=== PATIENT | male | born 1945 | race Caucasian/White ===

== ENCOUNTER 2018-02-03 15:56 | Emergency (ER) | payer BLACK LUNG, MEDICARE ==
--- NOTE | 2018-02-03 16:22 | ERPHSYRPT ---
- History of Present Illness Time Seen by Provider: 02/03/18 16:10 Historian: patient Exam Limitations: no limitations Patient Subjective Stated Complaint: Chest Soreness x1.5 weeks. Triage Nursing Assessment: Pt presents to the ED with complaints of chest soreness x1.5 weeks. Pt states pain is worse with ambulation. Pt states pain is approximately 5/10. Pt states pain has been intermittent. Pt states shortness of breath with pain. No distress noted at this time, skin PWD. Sent per Dr. Driscoll. Physician History: 72 y/o male with history of CVA on Eliquis and DM sent from Dr Driscoll's office for chest pain that started 1.5 weeks ago. Pt reports having intermittent chest pain, steady, as high as 6/10, and pt has not taken any pain meds. Pt also complains of shortness of breath while having the chest pain. Pt has no significant cardiac history but has black lung. Pt has never had a stress test and does not take ASA on a daily basis. Timing/Duration: day(s) Activities at Onset: none Quality: aching Location: central Chest Pain Radiation: no radiation Severity of Pain-Max: moderate Severity of Pain-Current: moderate Modifying Factors: Improves With: nothing Associated Symptoms: shortness of breath Prior Chest Pain/Cardiac Workup: no prior chest pain Nitro Today/Relief: no nitro taken today Aspirin Treatment Today: no aspirin today Allergies/Adverse Reactions: No Known Drug Allergies Allergy (Unverified 06/18/16 14:05) Home Medications: Insulin NPH/Reg 70/30 [Novolin 70/30] 15 unit SQ BID 12/11/15 [History] Apixaban [Eliquis 5 mg Tablet] 5 mg PO BID 02/03/18 [History] Hx Tetanus, Diphtheria Vaccination/Date Given: No Hx Influenza Vaccination/Date Given: Yes Hx Pneumococcal Vaccination/Date Given: Yes Immunizations Up to Date: Yes - Review of Systems Constitutional: No Fever, No Chills Eyes: No Symptoms Ears, Nose, & Throat: No Symptoms Respiratory: Dyspnea, No Cough Cardiac: Chest Pain, No Edema, No Syncope Abdominal/Gastrointestinal: No Abdominal Pain, No Nausea, No Vomiting, No Diarrhea Genitourinary Symptoms: No Dysuria Musculoskeletal: No Back Pain, No Neck Pain Skin: No Rash Neurological: No Dizziness, No Focal Weakness, No Sensory Changes Psychological: No Symptoms Endocrine: No Symptoms All Other Systems: Reviewed and Negative - Past Medical History Pertinent Past Medical History: Yes Neurological History: TIA Cardiac History: No Pertinent History Respiratory History: No Pertinent History Endocrine Medical History: Diabetes Type II Musculoskeletal History: No Pertinent History GI Medical History: No Pertinent History History: No Pertinent History Psycho-Social History: No Pertinent History Male Reproductive Disorders: No Pertinent History Other Medical History: BLACK LUNG; HX TIAS POSSIBLY - Past Surgical History Past Surgical History: Yes Cardiac: No Pertinent History Respiratory: Other Gastrointestinal: Cholecystectomy Genitourinary: No Pertinent History, Other Musculoskeletal: No Pertinent History Male Surgical History: No Pertinent History Other Surgical History: kidney stones - Social History Smoking Status: Former smoker Exposure to second hand smoke: No Alcohol Use: None Drug Use: none Patient Lives Alone: No Significant Family History: heart disease (mother) - Nursing Vital Signs Nursing Vital Signs: Initial Vital Signs Temperature 98.5 F 02/03/18 16:05 Pulse Rate 90 02/03/18 16:05 Respiratory Rate 16 02/03/18 16:05 Blood Pressure 170/93 02/03/18 16:05 O2 Sat by Pulse Oximetry 98 02/03/18 16:05 Pain Scale Pain Intensity 0 - Physical Exam General Appearance: no apparent distress, alert Eye Exam: PERRL/EOMI, eyes nml inspection Ears, Nose, Throat Exam: normal ENT inspection, moist mucous membranes Neck Exam: normal inspection, non-tender, supple, full range of motion Respiratory Exam: normal breath sounds, lungs clear, No respiratory distress Cardiovascular Exam: regular rate/rhythm, normal heart sounds Gastrointestinal/Abdomen Exam: soft, No tenderness, No mass Back Exam: normal inspection, No CVA tenderness, No vertebral tenderness Extremity Exam: normal inspection, normal range of motion Neurologic Exam: alert, oriented x 3, cooperative, normal mood/affect, sensation nml, No motor deficits Skin Exam: normal color, warm, dry SpO2: 98 Oxygen Delivery: Room Air - Course Nursing assessment & vital signs reviewed: Yes EKG Interpreted by Me: RATE, NORMAL AXIS, NORMAL INTERVALS, NORMAL QRS, NORMAL ST-T Ordered Tests: Active Orders 24 hr Category Date Time Status Flash Drier Operator STAT Care 02/03/18 16:23 Active EKG-ER Only STAT Care 02/03/18 16:22 Active IV Insertion STAT Care 02/03/18 16:22 Active CHEST 2 VIEWS (PA AND LAT) Stat Exams 02/03/18 16:23 Completed CBC W DIFF Stat Lab 02/03/18 16:20 Completed CK-Creatinine Phosphokinase Stat Lab 02/03/18 16:20 Completed CMP Stat Lab 02/03/18 16:20 Completed D-DIMER QUANTITATION Stat Lab 02/03/18 16:20 Completed NT PRO BNP Stat Lab 02/03/18 16:20 Completed PROTIME WITH INR Stat Lab 02/03/18 16:20 Completed PTT Stat Lab 02/03/18 16:20 Completed TROPONIN Q3H Lab 02/03/18 16:20 Completed TROPONIN Q3H Lab 02/03/18 19:30 Ordered TROPONIN Q3H Lab 02/03/18 22:30 Ordered TROPONIN Q3H Lab 02/04/18 01:30 Ordered TROPONIN Q3H Lab 02/04/18 04:30 Ordered Medication Summary Discontinued Medications Generic Name Dose Route Start Last Admin Trade Name Freq PRN Reason Stop Dose Admin Aspirin 325 mg 02/03/18 17:30 Ecotrin 325 Mg PO 02/03/18 17:31 ONCE ONE Lab/Rad Data: Laboratory Result Diagrams 02/03/18 16:20 02/03/18 16:20 Laboratory Results 02/03/18 02/03/18 02/03/18 Range/Units 16:20 16:20 16:20 WBC (4.0-10.5) K/mm3 RBC (4.1-5.6) M/mm3 Hgb (12.5-18.0) gm/dl Hct (42-50) % MCV (78-100) fl MCH (26-32) pg MCHC (32-36) g/dl RDW (11.5-14.0) % Plt Count (150-450) K/mm3 MPV (6-9.5) fl Gran % (36.0-66.0) % Eos # (Auto) (0-0.5) Absolute Lymphs (auto) (1.0-4.6) Absolute Monos (auto) (0.0-1.3) Lymphocytes % (24.0-44.0) % Monocytes % (0.0-12.0) % Eosinophils % (0.00-5.0) % Basophils % (0.0-0.4) % Absolute Granulocytes (1.4-6.9) Basophils # (0-0.4) PT 16.1 H (8.83-12.87) SECONDS INR 1.38 (0.8-3.0) APTT 42.4 H (24.1-36.1) SECONDS D-Dimer 265 (215-500) ng/mL Sodium 142 (137-145) mmol/L Potassium 4.1 (3.5-5.1) mmol/L Chloride 106 (98-107) mmol/L Carbon Dioxide 25 (22-30) mmol/L Anion Gap 15.4 H (5-15) MEQ/L BUN 18 (9-20) mg/dL Creatinine 0.95 (0.66-1.25) mg/dL Estimated GFR > 60.0 ML/MIN Glucose 192 H (74-106) mg/dL Calcium 9.5 (8.4-10.2) mg/dL Total Bilirubin 0.90 (0.2-1.3) mg/dL AST 55 (17-59) U/L ALT 32 (0-50) U/L Alkaline Phosphatase 71 (38-126) U/L Creatine Kinase 311 H (55-170) U/L Troponin I 2.790 H* (0.000-0.034) ng/mL NT-Pro-B Natriuret Pep 2050 H (0-900) pg/mL Serum Total Protein 7.8 (6.3-8.2) g/dL Albumin 4.3 (3.5-5.0) g/dL 02/03/18 Range/Units 16:20 WBC 8.4 (4.0-10.5) K/mm3 RBC 5.15 (4.1-5.6) M/mm3 Hgb 15.9 (12.5-18.0) gm/dl Hct 47.6 (42-50) % MCV 92.4 (78-100) fl MCH 30.9 (26-32) pg MCHC 33.4 (32-36) g/dl RDW 13.2 (11.5-14.0) % Plt Count 221 (150-450) K/mm3 MPV 12.0 H (6-9.5) fl Gran % 68.4 H (36.0-66.0) % Eos # (Auto) 0.28 (0-0.5) Absolute Lymphs (auto) 1.55 (1.0-4.6) Absolute Monos (auto) 0.82 (0.0-1.3) Lymphocytes % 18.4 L (24.0-44.0) % Monocytes % 9.7 (0.0-12.0) % Eosinophils % 3.3 (0.00-5.0) % Basophils % 0.2 (0.0-0.4) % Absolute Granulocytes 5.75 (1.4-6.9) Basophils # 0.02 (0-0.4) PT (8.83-12.87) SECONDS INR (0.8-3.0) APTT (24.1-36.1) SECONDS D-Dimer (215-500) ng/mL Sodium (137-145) mmol/L Potassium (3.5-5.1) mmol/L Chloride (98-107) mmol/L Carbon Dioxide (22-30) mmol/L Anion Gap (5-15) MEQ/L BUN (9-20) mg/dL Creatinine (0.66-1.25) mg/dL Estimated GFR ML/MIN Glucose (74-106) mg/dL Calcium (8.4-10.2) mg/dL Total Bilirubin (0.2-1.3) mg/dL AST (17-59) U/L ALT (0-50) U/L Alkaline Phosphatase (38-126) U/L Creatine Kinase (55-170) U/L Troponin I (0.000-0.034) ng/mL NT-Pro-B Natriuret Pep (0-900) pg/mL Serum Total Protein (6.3-8.2) g/dL Albumin (3.5-5.0) g/dL - Progress Progress: improved Progress Note: 02/03/18 17:12 The troponin is 2.79 with no significant EKG changes. The CXR does not show any acute changes. The rest of the labs are unremarkable. The patient admits to taking eliquis today. I will consult cardiology at [facility] for further management for NSTEMI. 02/03/18 17:24 02/03/18 17:[address] Cody, cardiology and he recommended to start the patient on ASA and Plavix but no heparin. He said that likely the patient will have a cath tomorrow. Pt has been accepted by ER doctor, Dr Boston at [facility]. - Departure Time of Disposition: 17:33 Departure Disposition: Transfer Clinical Impression: NSTEMI (non-ST elevated myocardial infarction) Condition: Fair Critical Care Time: Yes Critical Care Time(excluding separately billable procedures): 30-74 minutes Referrals: AME DRISCOLL [Primary Care Provider] -
[2018-02-03 16:30] LABS: BASOPHIL % 0.2 % (0.0-0.4); Basophil (Absolute #) 0.02 (0-0.4); Eosinophil % 3.3 % (0.00-5.0); Eosinophil (Absolute #) 0.28 (0-0.5); Granulocyte Absolute (ANC) 5.75 (1.4-6.9); Granulocytes % 68.4 % (36.0-66.0); Hematocrit 47.6 % (42-50); Hemoglobin 15.9 gm/dl (12.5-18.0); Lymphocyte (Absolute #) 1.55 (1.0-4.6); Lymphocytes % 18.4 % (24.0-44.0); Mean Cell Volume 92.4 fl (78-100); Mean Corpuscular Hemoglobin 30.9 pg (26-32); Mean Corpuscular Hgb Concent. 33.4 g/dl (32-36); Monocyte (Absolute #) 0.82 (0.0-1.3); Monocytes % 9.7 % (0.0-12.0); Platelet Count 221 K/mm3 (150-450); Red Blood Count 5.15 M/mm3 (4.1-5.6); Red Cell Distribution Width 13.2 % (11.5-14.0); White Blood Count 8.4 K/mm3 (4.0-10.5)
[2018-02-03 16:41] LABS: INR 1.38 (0.8-3.0)
[2018-02-03 16:44] LABS: PTT 42.4 SECONDS (24.1-36.1)
[2018-02-03 16:46] LABS: ALBUMIN 4.3 g/dL (3.5-5.0); ALKALINE PHOSPHATASE 71 U/L (38-126); ANION GAP 15.4 MEQ/L (5-15); BLOOD UREA NITROGEN 18 mg/dL (9-20); CHLORIDE 106 mmol/L (98-107); CK-Creatinine Phosphokinase 311 U/L (55-170); Calcium 9.5 mg/dL (8.4-10.2); Carbon Dioxide 25 mmol/L (22-30); Creatinine 1 0.95 mg/dL (0.66-1.25); Glucose 192 mg/dL (74-106); Potassium 4.1 mmol/L (3.5-5.1); SGOT/AST 55 U/L (17-59); SGPT/ALT 32 U/L (0-50); SODIUM 142 mmol/L (137-145); Total Protein 7.8 g/dL (6.3-8.2)
--- NOTE | 2018-02-03 16:51 | XRAY ---
Indication: Chest pain. Weakness. Comparison: June 18, 2016. PA/lateral chest again demonstrates bilateral scattered fibrosis/scarring and right suprahilar postsurgical changes. No focal infiltrate, consolidation, or large effusion. Heart and mediastinal structures within normal limits. Bony thorax intact again with mild degenerative changes. Impression: Nonacute chest with chronic features.
[2018-02-03 17:00] LABS: NT PRO BNP 2050 pg/mL (0-900)
[2018-02-03 17:15] VITALS: O2SAT 98
[2018-02-03] MEDS ORDERED: Ecotrin 325 MG PO ONE (17:30)
[2018-02-03] MEDS ORDERED: PLAVIX 75 MG Tablet PO ONE (17:31)
[2018-02-03] MEDS ORDERED: PLAVIX 75 MG Tablet ONE (17:33)
[2018-02-03] MEDS ORDERED: BABY ASPIRIN 81 MG CHEW ONE (17:33)
[2018-02-03] MEDS ORDERED: BABY ASPIRIN 81 MG CHEW PO ONE (17:34)
[2018-02-03 18:48] VITALS: BP 161/99; PULSE 70
== END 2018-02-03 19:08 | disposition short-term general hospital (02) ==
LOC: ED 15:56
DX: I21.4 Non-ST elevation (NSTEMI) myocardial infarction (principal); R06.02 Shortness of breath; Z86.73 Personal history of transient ischemic attack (TIA), and cerebral infarction without residual deficits; E11.9 Type 2 diabetes mellitus without complications; Z79.4 Long term (current) use of insulin; Z79.01 Long term (current) use of anticoagulants
CPT/HCPCS: 36000; 36415; 71046; 80053; 82550; 83880; 84484; 85025; 85379; 85610; 85730; 93005; 93041; 99285; A9270-GY

== ENCOUNTER 2019-08-12 16:43 | Emergency (ER) | payer MEDICARE, BLACK LUNG ==
[2019-08-12] MEDS ORDERED: BABY ASPIRIN 81 MG CHEW PO ONE (16:52)
[2019-08-12] MEDS ORDERED: Zofran 4 MG/2 ML VIAL IV ONE (16:52)
[2019-08-12] MEDS ORDERED: Sodium Chloride 0.9% 1000 ML 1,000 ML IV STA (16:52)
--- NOTE | 2019-08-12 17:06 | ERPHSYRPT ---
- History of Present Illness Time Seen by Provider: 08/12/19 16:44 Historian: patient Exam Limitations: no limitations Patient Subjective Stated Complaint: PT states "I have been vomiting and having diarrhea all day." Triage Nursing Assessment: Pt presented alert and oriented X 3, skin wpd. pt able to speak in clear full sentences. pt coughing intermittantly. Pt moaning. Physician History: Patient is here for N/V/D. Patient states it started today and has gotten worse. EMS gave 4 mg of zofran and benadryl. Patient is feeling improved now. He states he has no chest pain or SOB. He denies getting his flu shot this year. He has not falls or trauma. location: generalized radiation: none type: n/v/d frequency: improving duration: today Timing/Duration: today Activities at Onset: none Quality: cramping Pain Radiation: no radiation Severity of Pain-Max: moderate Severity of Pain-Current: moderate Modifying Factors: Improves With: nothing Associated Symptoms: fever/chills Allergies/Adverse Reactions: No Known Drug Allergies Allergy (Verified 08/12/19 16:49) Home Medications: Insulin NPH/Reg 70/30 [Novolin 70/30] 15 unit SQ BID 12/11/15 [History] Apixaban [Eliquis] 2.5 mg PO DAILY 08/12/19 [History] Hx Tetanus, Diphtheria Vaccination/Date Given: Yes Hx Influenza Vaccination/Date Given: Yes Hx Pneumococcal Vaccination/Date Given: Yes Immunizations Up to Date: Yes - Review of Systems Constitutional: No Fever, No Chills Eyes: No Symptoms Ears, Nose, & Throat: No Symptoms Respiratory: No Cough, No Dyspnea Cardiac: No Chest Pain, No Edema, No Syncope Abdominal/Gastrointestinal: Nausea, Vomiting, Diarrhea, No Abdominal Pain Genitourinary Symptoms: No Dysuria Musculoskeletal: No Back Pain, No Neck Pain Skin: No Rash Neurological: No Dizziness, No Focal Weakness, No Sensory Changes Psychological: No Symptoms Endocrine: No Symptoms All Other Systems: Reviewed and Negative - Past Medical History Pertinent Past Medical History: Yes Neurological History: TIA Cardiac History: No Pertinent History Respiratory History: No Pertinent History Endocrine Medical History: Diabetes Type II Musculoskeletal History: No Pertinent History GI Medical History: No Pertinent History History: No Pertinent History Psycho-Social History: No Pertinent History Male Reproductive Disorders: No Pertinent History Other Medical History: BLACK LUNG; HX TIAS POSSIBLY - Past Surgical History Past Surgical History: Yes Cardiac: No Pertinent History Respiratory: Other Gastrointestinal: Cholecystectomy Genitourinary: No Pertinent History, Other Musculoskeletal: No Pertinent History Male Surgical History: No Pertinent History Other Surgical History: kidney stones - Social History Smoking Status: Former smoker Exposure to second hand smoke: Yes Alcohol Use: None Drug Use: none Patient Lives Alone: No Significant Family History: heart disease (mother) - Nursing Vital Signs Nursing Vital Signs: Initial Vital Signs Temperature 97.4 F 08/12/19 16:43 Pulse Rate 81 08/12/19 16:43 Respiratory Rate 16 08/12/19 16:43 Blood Pressure 127/89 08/12/19 16:43 O2 Sat by Pulse Oximetry 94 L 08/12/19 16:43 Pain Scale Pain Intensity 4 - Physical Exam General Appearance: no apparent distress, alert Eye Exam: PERRL/EOMI, eyes nml inspection Ears, Nose, Throat Exam: normal ENT inspection, pharynx normal, moist mucous membranes Neck Exam: normal inspection, non-tender, supple, full range of motion Respiratory Exam: normal breath sounds, lungs clear, No respiratory distress Cardiovascular Exam: regular rate/rhythm, normal heart sounds Gastrointestinal/Abdomen Exam: soft, No tenderness, No mass Back Exam: normal inspection, normal range of motion, No CVA tenderness, No vertebral tenderness Extremity Exam: normal inspection, normal range of motion, pelvis stable Neurologic Exam: alert, oriented x 3, cooperative, normal mood/affect, nml cerebellar function, sensation nml, No motor deficits Skin Exam: normal color, warm, dry SpO2: 94 - Course Nursing assessment & vital signs reviewed: Yes Ordered Tests: Active Orders 24 hr Category Date Time Status Jewel Inserter STAT Care 08/12/19 16:53 Active EKG-ER Only STAT Care 08/12/19 16:52 Active IV Insertion STAT Care 08/12/19 16:52 Active Pulse Oximetry (ED) STAT Care 08/12/19 16:52 Active CHEST 2 VIEWS (PA AND LAT) Stat Exams 08/12/19 16:53 Taken CBC W DIFF Stat Lab 08/12/19 17:37 Completed CMP Stat Lab 08/12/19 17:37 Completed NT PRO BNP Stat Lab 08/12/19 17:37 Completed TROPONIN Q3H Lab 08/12/19 17:37 Completed TROPONIN Q3H Lab 08/12/19 20:00 Ordered TROPONIN Q3H Lab 08/12/19 23:00 Ordered TROPONIN Q3H Lab 08/13/19 02:00 Ordered TROPONIN Q3H Lab 08/13/19 05:00 Ordered UA W/RFX UR CULTURE Stat Lab 08/12/19 19:12 Completed Medication Summary Discontinued Medications Generic Name Dose Route Start Last Admin Trade Name Freq PRN Reason Stop Dose Admin Aspirin 324 mg 08/12/19 16:52 08/12/19 17:35 Baby Aspirin 81 Mg Chew PO 08/12/19 16:53 324 mg STAT ONE Administration Aspirin Confirm 08/12/19 17:31 Baby Aspirin 81 Mg Chew Administered 08/12/19 17:32 Dose 324 mg .ROUTE .STK-MED ONE Sodium Chloride 1,000 mls @ 999 mls/hr 08/12/19 16:52 08/12/19 19:01 Sodium Chloride 0.9% 1000 Ml IV 08/12/19 17:52 Infused .Q1H1M STA Infusion Sodium Chloride Confirm 08/12/19 17:31 Sodium Chloride 0.9% 1000 Ml Administered 08/12/19 17:32 Dose 1,000 mls @ ud .ROUTE .STK-MED ONE Ondansetron HCl 4 mg 08/12/19 16:52 08/12/19 17:35 Zofran 4 Mg/2 Ml Vial IV 08/12/19 16:53 4 mg STAT ONE Administration Ondansetron HCl Confirm 08/12/19 17:31 Zofran 4 Mg/2 Ml Vial Administered 08/12/19 17:32 Dose 4 mg .ROUTE .STK-MED ONE Lab/Rad Data: Laboratory Result Diagrams 08/12/19 17:37 08/12/19 17:37 Laboratory Results 08/12/19 08/12/19 08/12/19 Range/Units 19:12 17:37 17:37 WBC (4.0-10.5) K/mm3 RBC (4.1-5.6) M/mm3 Hgb (12.5-18.0) gm/dl Hct (42-50) % MCV (78-100) fl MCH (26-32) pg MCHC (32-36) g/dl RDW (11.5-14.0) % Plt Count (150-450) K/mm3 MPV (6-9.5) fl Gran % (36.0-66.0) % Eos # (Auto) (0-0.5) Absolute Lymphs (auto) (1.0-4.6) Absolute Monos (auto) (0.0-1.3) Lymphocytes % (24.0-44.0) % Monocytes % (0.0-12.0) % Eosinophils % (0.00-5.0) % Basophils % (0.0-0.4) % Absolute Granulocytes (1.4-6.9) Basophils # (0-0.4) Sodium (137-145) mmol/L Potassium (3.5-5.1) mmol/L Chloride (98-107) mmol/L Carbon Dioxide (22-30) mmol/L Anion Gap (5-15) MEQ/L BUN (9-20) mg/dL Creatinine (0.66-1.25) mg/dL Estimated GFR ML/MIN Glucose (74-106) mg/dL Calcium (8.4-10.2) mg/dL Total Bilirubin (0.2-1.3) mg/dL AST (17-59) U/L ALT (0-50) U/L Alkaline Phosphatase (38-126) U/L Troponin I < 0.012 (0.000-0.034) ng/mL NT-Pro-B Natriuret Pep (0-1800) pg/mL Serum Total Protein (6.3-8.2) g/dL Albumin (3.5-5.0) g/dL Urine Color YELLOW (YELLOW) Urine Appearance CLEAR (CLEAR) Urine pH 7.0 (5-6) Ur Specific [place] 1.015 (1.005-1.025) Urine Protein NEGATIVE (Negative) Urine Ketones NEGATIVE (NEGATIVE) Urine Blood NEGATIVE (0-5) Damir/ul Urine Nitrite NEGATIVE (NEGATIVE) Urine Bilirubin NEGATIVE (NEGATIVE) Urine Urobilinogen NEGATIVE (0-1) mg/dL Ur Leukocyte Esterase NEGATIVE (NEGATIVE) Urine WBC (Auto) NONE (0-5) /HPF Urine RBC (Auto) NONE (0-2) /HPF U Epithel Cells (Auto) NONE (FEW) /HPF Urine Bacteria (Auto) NONE (NEGATIVE) /HPF Urine Culture Reflexed NO (NO) Urine Glucose 50 (NEGATIVE) mg/dL Influenza Type A Ag NEGATIVE (NEGATIVE) Influenza Type B Ag NEGATIVE (NEGATIVE) RSV (PCR) NEGATIVE (Negative) 08/12/19 08/12/19 Range/Units 17:37 17:37 WBC 18.1 H (4.0-10.5) K/mm3 RBC 5.05 (4.1-5.6) M/mm3 Hgb 15.2 (12.5-18.0) gm/dl Hct 48.9 (42-50) % MCV 96.8 (78-100) fl MCH 30.1 (26-32) pg MCHC 31.1 L (32-36) g/dl RDW 13.4 (11.5-14.0) % Plt Count 245 (150-450) K/mm3 MPV 11.9 H (6-9.5) fl Gran % 88.2 H (36.0-66.0) % Eos # (Auto) 0.34 (0-0.5) Absolute Lymphs (auto) 0.56 L (1.0-4.6) Absolute Monos (auto) 1.21 (0.0-1.3) Lymphocytes % 3.1 L (24.0-44.0) % Monocytes % 6.7 (0.0-12.0) % Eosinophils % 1.9 (0.00-5.0) % Basophils % 0.1 (0.0-0.4) % Absolute Granulocytes 15.93 H (1.4-6.9) Basophils # 0.01 (0-0.4) Sodium 144 (137-145) mmol/L Potassium 4.8 (3.5-5.1) mmol/L Chloride 109 H (98-107) mmol/L Carbon Dioxide 27 (22-30) mmol/L Anion Gap 13.0 (5-15) MEQ/L BUN 22 H (9-20) mg/dL Creatinine 1.01 (0.66-1.25) mg/dL Estimated GFR > 60.0 ML/MIN Glucose 162 H (74-106) mg/dL Calcium 8.9 (8.4-10.2) mg/dL Total Bilirubin 0.70 (0.2-1.3) mg/dL AST 27 (17-59) U/L ALT 24 (0-50) U/L Alkaline Phosphatase 71 (38-126) U/L Troponin I (0.000-0.034) ng/mL NT-Pro-B Natriuret Pep 211 (0-1800) pg/mL Serum Total Protein 7.6 (6.3-8.2) g/dL Albumin 4.0 (3.5-5.0) g/dL Urine Color (YELLOW) Urine Appearance (CLEAR) Urine pH (5-6) Ur Specific [place] (1.005-1.025) Urine Protein (Negative) Urine Ketones (NEGATIVE) Urine Blood (0-5) Damir/ul Urine Nitrite (NEGATIVE) Urine Bilirubin (NEGATIVE) Urine Urobilinogen (0-1) mg/dL Ur Leukocyte Esterase (NEGATIVE) Urine WBC (Auto) (0-5) /HPF Urine RBC (Auto) (0-2) /HPF U Epithel Cells (Auto) (FEW) /HPF Urine Bacteria (Auto) (NEGATIVE) /HPF Urine Culture Reflexed (NO) Urine Glucose (NEGATIVE) mg/dL Influenza Type A Ag (NEGATIVE) Influenza Type B Ag (NEGATIVE) RSV (PCR) (Negative) - Progress Progress Note: 08/12/19 17:07 Diff dx includes influenza, PNA, infection, STEMI. - basic labs, fluids, zofran, CXR - UA, trop, EKG 08/12/19 19:44 Patient feeling improved. No further episodes of N/V/D in the ER. Troponin and other labs are negative. Patient does have leukocytosis. Most likely flu like symptoms. But, flu swab is negative. I did offer admission for observation. The family declined at this point in time. Patient states he wants to go home tonight. They will need to return here for new or changing symptoms. - Departure Departure Disposition: Home Clinical Impression: Vomiting, Flu-like symptoms Condition: Stable Critical Care Time: No Referrals: AME ULLOA [Primary Care Provider] - Instructions: Nausea -- Adult, Vomiting -- Adult Additional Instructions: Reexam with PCP in 24-48 hours
[2019-08-12] MEDS ORDERED: Zofran 4 MG/2 ML VIAL ONE (17:31)
[2019-08-12] MEDS ORDERED: BABY ASPIRIN 81 MG CHEW ONE (17:31)
[2019-08-12] MEDS ORDERED: Sodium Chloride 0.9% 1000 ML 1,000 ML ONE (17:31)
[2019-08-12 17:34] LABS: Absolute Neutrophil Ct (ANC) 15.93 (1.4-6.9); BASOPHIL % 0.1 % (0.0-0.4); Basophil (Absolute #) 0.01 (0-0.4); Eosinophil % 1.9 % (0.00-5.0); Eosinophil (Absolute #) 0.34 (0-0.5); Hematocrit 48.9 % (42-50); Hemoglobin 15.2 gm/dl (12.5-18.0); Lymphocyte (Absolute #) 0.56 (1.0-4.6); Lymphocytes % 3.1 % (24.0-44.0); Mean Cell Volume 96.8 fl (78-100); Mean Corpuscular Hemoglobin 30.1 pg (26-32); Mean Corpuscular Hgb Concent. 31.1 g/dl (32-36); Mean Platelet Volume 11.9 fl (6-9.5); Monocyte (Absolute #) 1.21 (0.0-1.3); Monocytes % 6.7 % (0.0-12.0); Neutrophil % 88.2 % (36.0-66.0); Platelet Count 245 K/mm3 (150-450); Red Blood Count 5.05 M/mm3 (4.1-5.6); Red Cell Distribution Width 13.4 % (11.5-14.0); White Blood Count 18.1 K/mm3 (4.0-10.5)
[2019-08-12 17:57] LABS: ALKALINE PHOSPHATASE 71 U/L (38-126); BLOOD UREA NITROGEN 22 mg/dL (9-20); CHLORIDE 109 mmol/L (98-107); Calcium 8.9 mg/dL (8.4-10.2); Carbon Dioxide 27 mmol/L (22-30); Creatinine 1 1.01 mg/dL (0.66-1.25); Glucose 162 mg/dL (74-106); NT PRO BNP 211 pg/mL (0-1800); Potassium 4.8 mmol/L (3.5-5.1); SGOT/AST 27 U/L (17-59); SGPT/ALT 24 U/L (0-50); SODIUM 144 mmol/L (137-145); Total Protein 7.6 g/dL (6.3-8.2)
[2019-08-12 18:35] LABS: INFLUENZA A NEGATIVE (NEGATIVE); INFLUENZA B NEGATIVE (NEGATIVE); RESPIRATORY SYNCTIAL VIRUS NEGATIVE (Negative)
[2019-08-12 19:02] VITALS: BP 133/79; PULSE 77
[2019-08-12 19:18] LABS: Appearance CLEAR (CLEAR); Bilirubin NEGATIVE (NEGATIVE); Blood NEGATIVE Ery/ul (0-5); Glucose 50 mg/dL (NEGATIVE); Ketones NEGATIVE (NEGATIVE); Leukocyte Esterase NEGATIVE (NEGATIVE); Nitrite NEGATIVE (NEGATIVE); Protein,Urine Dip NEGATIVE (Negative); Specific Gravity 1.015 (1.005-1.025); Urobilinogen NEGATIVE mg/dL (0-1)
[2019-08-12 19:34] VITALS: O2SAT 94
--- NOTE | 2019-08-12 20:47 | XRAY ---
Indication: Nausea, vomiting, and diarrhea. Comparison: February 03, 2018. PA/lateral chest underinflated again with chronic fibrosis/scarring and right suprahilar postsurgical changes. No focal infiltrate, consolidation, or large effusion. Heart is not enlarged. Bony thorax intact again with mild degenerative changes. Impression: Nonacute underinflated chest with chronic findings. Comment: Preliminary interpretation was made by [facility]. No discrepancy.
[2019-08-13 00:18] LABS: Slide Review 1 YES
== END 2019-08-12 20:00 | disposition home or self-care (01) ==
LOC: ED 16:43
DX: R11.2 Nausea with vomiting, unspecified (principal); J11.1 Influenza due to unidentified influenza virus with other respiratory manifestations; R50.9 Fever, unspecified; R19.7 Diarrhea, unspecified; Z79.4 Long term (current) use of insulin; Z79.01 Long term (current) use of anticoagulants
CPT/HCPCS: 36415; 71046; 80053; 81001; 83880; 84484; 85025; 87631; 93005; 93041; 94760; 96360; 96374; 99284; J2405; A9270-GY

== ENCOUNTER 2019-08-14 13:41 | Observation (INO) | payer MEDICARE, BLACK LUNG ==
--- NOTE | 2019-08-14 13:47 | ERPHSYRPT ---
- History of Present Illness Time Seen by Provider: 08/14/19 13:47 Source: patient Exam Limitations: no limitations Physician History: 74 y/o white male with h/o iddm, tia and is suppose to be taking Eliquis, but not been taking for a week, presents with mild hemoptysis this am. pt was tx here in this ED on 08/12/19 for n/v/d. those sx have resolved. pt denies cp, denies soa, denies abd pain and denies n/v/d. pt has a h/o black lung. pt is a former smoker. pts recent ekg and troponin wnl. pts recent wbc 18.1. pt denies fevers at home Timing/Duration: today Severity: mild Associated Symptoms: cough (small amt blood with coughing. ), No nausea, No vomiting, No abdominal pain, No shortness of breath, No chest pain, No loss of appetite, No malaise, No syncope Allergies/Adverse Reactions: No Known Drug Allergies Allergy (Verified 08/14/19 13:55) Home Medications: Insulin NPH/Reg 70/30 [Novolin 70/30] 15 unit SQ BID 12/11/15 [History] Apixaban [Eliquis] 2.5 mg PO DAILY 08/12/19 [History] Hx Tetanus, Diphtheria Vaccination/Date Given: Yes Hx Influenza Vaccination/Date Given: Yes Hx Pneumococcal Vaccination/Date Given: Yes - Review of Systems Constitutional: No Symptoms Eyes: No Symptoms Ears, Nose, & Throat: No Symptoms Respiratory: Cough, Other (mild hemoptysis) Cardiac: No Symptoms Abdominal/Gastrointestinal: No Symptoms Genitourinary Symptoms: No Symptoms Musculoskeletal: No Symptoms Skin: No Symptoms Neurological: No Symptoms Psychological: No Symptoms Endocrine: No Symptoms Hematologic/Lymphatic: No Symptoms Immunological/Allergic: No Symptoms All Other Systems: Reviewed and Negative - Past Medical History Pertinent Past Medical History: Yes Neurological History: TIA Cardiac History: No Pertinent History Respiratory History: No Pertinent History Endocrine Medical History: Diabetes Type II Musculoskeletal History: No Pertinent History GI Medical History: No Pertinent History History: No Pertinent History Psycho-Social History: No Pertinent History Male Reproductive Disorders: No Pertinent History Other Medical History: BLACK LUNG; HX TIAS POSSIBLY - Past Surgical History Past Surgical History: Yes Cardiac: No Pertinent History Respiratory: Other Gastrointestinal: Cholecystectomy Genitourinary: No Pertinent History, Other Musculoskeletal: No Pertinent History Male Surgical History: No Pertinent History Other Surgical History: kidney stones - Social History Smoking Status: Former smoker Exposure to second hand smoke: Yes Alcohol Use: None Drug Use: none Patient Lives Alone: No Significant Family History: heart disease (mother) - Nursing Vital Signs Nursing Vital Signs: Initial Vital Signs Temperature 98.7 F 08/14/19 13:49 Pulse Rate 90 08/14/19 13:49 Respiratory Rate 17 08/14/19 13:49 Blood Pressure 149/82 08/14/19 13:49 O2 Sat by Pulse Oximetry 96 08/14/19 13:49 Pain Scale Pain Intensity 0 - Physical Exam General Appearance: no apparent distress, alert, anxiety Eye Exam: PERRL/EOMI, eyes nml inspection Ears, Nose, Throat Exam: normal ENT inspection, moist mucous membranes Neck Exam: normal inspection, non-tender, supple, full range of motion Respiratory Exam: normal breath sounds, lungs clear, airway intact, No chest tenderness, No respiratory distress Cardiovascular Exam: regular rate/rhythm, normal heart sounds, normal peripheral pulses Gastrointestinal/Abdomen Exam: soft, normal bowel sounds, No tenderness Rectal Exam: not done Back Exam: normal inspection, normal range of motion, No CVA tenderness, No vertebral tenderness Extremity Exam: normal inspection, normal range of motion, pelvis stable Neurologic Exam: alert, oriented x 3, cooperative, graduate 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-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 nml as tested Skin Exam: normal color, warm, dry Lymphatic Exam: No adenopathy SpO2 Interpretation: normal O2 Delivery: Room Air - Course Nursing assessment & vital signs reviewed: Yes EKG Interpreted by Me: RATE (85), Sinus Rhythm, NORMAL AXIS, NORMAL INTERVALS, NORMAL QRS, Other (no acute ischemic changes and no change from comparison ekg dated 08/12/19) Ordered Tests: Active Orders 24 hr Category Date Time Status Environmental Resource Specialist STAT Care 08/14/19 14:14 Active EKG-ER Only STAT Care 08/14/19 14:12 Active IV Insertion STAT Care 08/14/19 14:12 Active Pulse Oximetry (ED) STAT Care 08/14/19 14:12 Active CHEST 1 VIEW (PORTABLE) Stat Exams 08/14/19 14:14 Completed CHEST WITH CONTRAST [CT] Stat Exams 08/14/19 15:00 Completed BLOOD CULTURE Stat Lab 08/14/19 14:34 Received BNP [NT PRO BNP] Stat Lab 08/14/19 14:00 Completed CBC W DIFF Stat Lab 08/14/19 14:00 Completed CMP Stat Lab 08/14/19 14:00 Completed CULTURE,SPUTUM Stat Lab 08/14/19 15:30 Received D-DIMER QUANTITATION Stat Lab 08/14/19 14:00 Completed Lactic Acid Stat Lab 08/14/19 14:31 Completed TROPONIN Q3H Lab 08/14/19 17:00 Completed TROPONIN Q3H Lab 08/14/19 20:00 Ordered TROPONIN Q3H Lab 08/14/19 23:00 Ordered Transfer Order Routine Transfer 08/14/19 Ordered Medication Summary Discontinued Medications Generic Name Dose Route Start Last Admin Trade Name Freq PRN Reason Stop Dose Admin Sodium Chloride 1,000 mls @ 999 mls/hr 08/14/19 14:17 08/14/19 15:22 Sodium Chloride 0.9% 1000 Ml IV 08/14/19 15:17 Infused .Q1H1M STA Infusion Sodium Chloride Confirm 08/14/19 14:19 Sodium Chloride 0.9% 1000 Ml Administered 08/14/19 14:20 Dose 1,000 mls @ ud .ROUTE .STK-MED ONE Ceftriaxone Sodium/Dextrose 1 g in 50 mls @ 100 mls/hr 08/14/19 17:10 17:52 Rocephin 1 Gm-D5w 50 Ml Bag IV 08/14/19 17:39 Infused STAT STA Infusion Ceftriaxone Sodium/Dextrose Confirm 08/14/19 17:19 Rocephin 1 Gm-D5w 50 Ml Bag Administered 08/14/19 17:20 Dose 1 g in 50 mls @ ud IV .STK-MED ONE Lab/Rad Data: Laboratory Result Diagrams 08/14/19 14:00 08/14/19 14:00 Laboratory Results 08/14/19 08/14/19 08/14/19 Range/Units 17:00 14:31 14:00 WBC (4.0-10.5) K/mm3 RBC (4.1-5.6) M/mm3 Hgb (12.5-18.0) gm/dl Hct (42-50) % MCV (78-100) fl MCH (26-32) pg MCHC (32-36) g/dl RDW (11.5-14.0) % Plt Count (150-450) K/mm3 MPV (6-9.5) fl Gran % (36.0-66.0) % Eos # (Auto) (0-0.5) Absolute Lymphs (auto) (1.0-4.6) Absolute Monos (auto) (0.0-1.3) Lymphocytes % (24.0-44.0) % Monocytes % (0.0-12.0) % Eosinophils % (0.00-5.0) % Basophils % (0.0-0.4) % Absolute Granulocytes (1.4-6.9) Basophils # (0-0.4) D-Dimer 749 H* (215-500) ng/mL Sodium (137-145) mmol/L Potassium (3.5-5.1) mmol/L Chloride (98-107) mmol/L Carbon Dioxide (22-30) mmol/L Anion Gap (5-15) MEQ/L BUN (9-20) mg/dL Creatinine (0.66-1.25) mg/dL Estimated GFR ML/MIN Glucose (74-106) mg/dL Lactic Acid 1.0 (0.4-2.0) Calcium (8.4-10.2) mg/dL Total Bilirubin (0.2-1.3) mg/dL AST (17-59) U/L ALT (0-50) U/L Alkaline Phosphatase (38-126) U/L Troponin I < 0.012 (0.000-0.034) ng/mL NT-Pro-B Natriuret Pep (0-1800) pg/mL Serum Total Protein (6.3-8.2) g/dL Albumin (3.5-5.0) g/dL 08/14/19 08/14/19 08/14/19 Range/Units 14:00 14:00 14:00 WBC 12.4 H (4.0-10.5) K/mm3 RBC 4.28 (4.1-5.6) M/mm3 Hgb 13.0 (12.5-18.0) gm/dl Hct 41.4 L (42-50) % MCV 96.7 (78-100) fl MCH 30.4 (26-32) pg MCHC 31.4 L (32-36) g/dl RDW 13.4 (11.5-14.0) % Plt Count 200 (150-450) K/mm3 MPV 11.6 H (6-9.5) fl Gran % 80.6 H (36.0-66.0) % Eos # (Auto) 0.09 (0-0.5) Absolute Lymphs (auto) 1.04 (1.0-4.6) Absolute Monos (auto) 1.25 (0.0-1.3) Lymphocytes % 8.4 L (24.0-44.0) % Monocytes % 10.1 (0.0-12.0) % Eosinophils % 0.7 (0.00-5.0) % Basophils % 0.2 (0.0-0.4) % Absolute Granulocytes 9.97 H (1.4-6.9) Basophils # 0.02 (0-0.4) D-Dimer (215-500) ng/mL Sodium 139 (137-145) mmol/L Potassium 4.0 (3.5-5.1) mmol/L Chloride 103 (98-107) mmol/L Carbon Dioxide 29 (22-30) mmol/L Anion Gap 10.3 (5-15) MEQ/L BUN 24 H (9-20) mg/dL Creatinine 1.06 (0.66-1.25) mg/dL Estimated GFR > 60.0 ML/MIN Glucose 139 H (74-106) mg/dL Lactic Acid (0.4-2.0) Calcium 8.9 (8.4-10.2) mg/dL Total Bilirubin 1.20 (0.2-1.3) mg/dL AST 21 (17-59) U/L ALT 18 (0-50) U/L Alkaline Phosphatase 46 (38-126) U/L Troponin I (0.000-0.034) ng/mL NT-Pro-B Natriuret Pep 272 (0-1800) pg/mL Serum Total Protein 7.1 (6.3-8.2) g/dL Albumin 3.5 (3.5-5.0) g/dL - Progress Progress: improved, re-examined Progress Note: 08/14/19 17:59 cxr-no acute process cta chest-diffuse left lung alveolar opacities with background of large mass like opacities. discussed with dr. sprague. i reveiwed pt hx, condition, labs, ekg and xray results. will place in obs and give antibx, rt and cough suppressant Discussed with .: Fidel Counseled pt/family regarding: lab results, diagnosis, rad results - Departure Departure Disposition: Observation Clinical Impression: Pneumonia involving left lung, Hemoptysis Condition: Stable Critical Care Time: No Referrals: AME SPRAGUE [Primary Care Provider] -
[2019-08-14] MEDS ORDERED: Sodium Chloride 0.9% 1000 ML 1,000 ML IV STA (14:17)
[2019-08-14] MEDS ORDERED: Sodium Chloride 0.9% 1000 ML 1,000 ML ONE (14:19)
--- NOTE | 2019-08-14 14:40 | XRAY ---
Indication: Chest pain and cough. Comparison: 2 days ago. Portable chest unchanged again demonstrating chronic fibrosis/scarring and right suprahilar postsurgical changes. Heart and mediastinal structures within normal limits. No new/acute findings.
[2019-08-14 14:42] LABS: Absolute Neutrophil Ct (ANC) 9.97 (1.4-6.9); BASOPHIL % 0.2 % (0.0-0.4); Basophil (Absolute #) 0.02 (0-0.4); Eosinophil % 0.7 % (0.00-5.0); Eosinophil (Absolute #) 0.09 (0-0.5); Hematocrit 41.4 % (42-50); Lymphocyte (Absolute #) 1.04 (1.0-4.6); Lymphocytes % 8.4 % (24.0-44.0); Mean Cell Volume 96.7 fl (78-100); Mean Corpuscular Hemoglobin 30.4 pg (26-32); Mean Corpuscular Hgb Concent. 31.4 g/dl (32-36); Mean Platelet Volume 11.6 fl (6-9.5); Monocyte (Absolute #) 1.25 (0.0-1.3); Monocytes % 10.1 % (0.0-12.0); Neutrophil % 80.6 % (36.0-66.0); Platelet Count 200 K/mm3 (150-450); Red Blood Count 4.28 M/mm3 (4.1-5.6); Red Cell Distribution Width 13.4 % (11.5-14.0); White Blood Count 12.4 K/mm3 (4.0-10.5)
[2019-08-14 14:53] LABS: ALBUMIN 3.5 g/dL (3.5-5.0); ALKALINE PHOSPHATASE 46 U/L (38-126); ANION GAP 10.3 MEQ/L (5-15); BLOOD UREA NITROGEN 24 mg/dL (9-20); CHLORIDE 103 mmol/L (98-107); Calcium 8.9 mg/dL (8.4-10.2); Carbon Dioxide 29 mmol/L (22-30); Creatinine 1 1.06 mg/dL (0.66-1.25); Glucose 139 mg/dL (74-106); SGOT/AST 21 U/L (17-59); SGPT/ALT 18 U/L (0-50); SODIUM 139 mmol/L (137-145); Total Protein 7.1 g/dL (6.3-8.2)
--- NOTE | 2019-08-14 16:29 | XRAY ---
Indication: Cough and short of breath. Elevated d-dimer. Multiple contiguous axial images obtained through the chest using 80 cc of Isovue-370 contrast and PE protocol. Comparison: None There is satisfactory opacification of the pulmonary arteries to include the lobar and segmental branches. No filling defect or pulmonary embolus. Heart is not enlarged. Aorta is mildly arteriosclerotic without aneurysm/dissection. A few small mediastinal and bilateral hilar calcified nodes. No pathologic mediastinal/hilar lymphadenopathy. Moderate-sized hiatal hernia. Lungs demonstrate scattered fibrosis/scarring, mild bilateral dependent atelectasis, and mild left mid to lower lung calcified pleural plaquing. Right suprahilar suture material/surgical clips. Left lung demonstrates diffuse interstitial alveolar opacities. There are also large irregular masslike opacities, largest in the upper lobe measuring 5.1 x 3.5 cm. Findings may represent organizing pneumonia but cannot completely exclude malignancy. Small right effusion. Bony thorax demonstrate mild degenerative changes throughout the spine. Limited upper abdomen demonstrates diffuse fatty liver and hepatic/splenic calcified granulomas. Impression: 1. Negative pulmonary embolus. 2. Diffuse left lung interstitial alveolar opacities with background of large masslike opacities. Rule out organizing pneumonia versus malignancy. Comparison studies would be of benefit. 3. Right suprahilar postsurgical changes, scattered fibrosis/scarring, and left hemithorax calcified pleural plaquing. 4. Incidental hiatal hernia, fatty liver, and evidence for old granulomatous disease. CTDI 18.26
[2019-08-14] MEDS ORDERED: ROCEPHIN 1 Gm-D5w 50 ml Bag** 1 G/50 ML IVPB IV STA (17:10)
[2019-08-14] MEDS ORDERED: ROCEPHIN 1 Gm-D5w 50 ml Bag** 1 G/50 ML IVPB IV ONE (17:19)
[2019-08-14] MEDS ORDERED: HYDROCODONE-ACETAMIN 2.5-108/5 ML SOLUTION PO PRN (18:16)
[2019-08-14] MEDS ORDERED: Sodium Chloride 0.9% 1000 ML 1,000 ML IV SCH (18:16)
[2019-08-14] MEDS ORDERED: Zofran 4 MG/2 ML VIAL IV PRN (18:16)
[2019-08-14] MEDS ORDERED: ELIQUIS 2.5 MG TABLET PO ONE (22:00)
[2019-08-14] MEDS ORDERED: Micronase 5 MG PO ONE (22:00)
[2019-08-15 04:53] LABS: Absolute Neutrophil Ct (ANC) 8.87 (1.4-6.9); BASOPHIL % 0.1 % (0.0-0.4); Basophil (Absolute #) 0.01 (0-0.4); Eosinophil % 0.2 % (0.00-5.0); Eosinophil (Absolute #) 0.02 (0-0.5); Hematocrit 39.8 % (42-50); Hemoglobin 12.6 gm/dl (12.5-18.0); Lymphocyte (Absolute #) 0.41 (1.0-4.6); Mean Cell Volume 96.1 fl (78-100); Mean Corpuscular Hemoglobin 30.4 pg (26-32); Mean Corpuscular Hgb Concent. 31.7 g/dl (32-36); Mean Platelet Volume 10.8 fl (6-9.5); Monocyte (Absolute #) 1.06 (0.0-1.3); Monocytes % 10.2 % (0.0-12.0); Neutrophil % 85.5 % (36.0-66.0); Platelet Count 205 K/mm3 (150-450); Red Blood Count 4.14 M/mm3 (4.1-5.6); Red Cell Distribution Width 13.1 % (11.5-14.0); White Blood Count 10.4 K/mm3 (4.0-10.5)
[2019-08-15 05:51] LABS: ALBUMIN 3.1 g/dL (3.5-5.0); ALKALINE PHOSPHATASE 41 U/L (38-126); BLOOD UREA NITROGEN 19 mg/dL (9-20); CHLORIDE 108 mmol/L (98-107); Calcium 8.4 mg/dL (8.4-10.2); Carbon Dioxide 28 mmol/L (22-30); Creatinine 1 0.96 mg/dL (0.66-1.25); SGOT/AST 20 U/L (17-59); SGPT/ALT 16 U/L (0-50); SODIUM 140 mmol/L (137-145); Total Protein 6.5 g/dL (6.3-8.2)
[2019-08-15 05:53] LABS: Slide Review 1 YES
[2019-08-15 05:57] LABS: Glucose 51 mg/dL (74-106)
[2019-08-15 07:24] VITALS: BP 139/72; PULSE 81
--- NOTE | 2019-08-15 09:09 | SSS ---
DISCHARGE DIAGNOSIS: HEMOPTYSIS. HISTORY: The patient is a 74 year-old white male with known history of chronic obstructive pulmonary disease and Black Lung Disease. The patient reports that he is on blood thinners and in fact he is taking Eliquis, aspirin 325 mg and Plavix for previous history of transient ischemic attack. The patient however has been having bloody sputum over the past week and a half. The patient does appear to have some memory issues as he is unclear about a recent stay in the emergency room for vomiting and diarrhea which had resolved and he does not remember this history. The patient had contacted Dr. Garcia's office for the hemoptysis and was instructed to come to the emergency room. The patient has no significant increase in shortness of breath otherwise. He had been previously on prednisone which he reports Dr. Garcia had stopped. PAST MEDICAL HISTORY: His medical history otherwise includes diabetes mellitus type 2, previous transient ischemic attack. He has had previous cholecystectomy and kidney stones. MEDICATIONS: His home medications are NovoLog insulin 15 units b.i.d., Eliquis 2.5 mg daily, aspirin 325 mg daily, atorvastatin 40 mg a day, Plavix 75 mg daily, Glyburide 5 mg t.i.d. ALLERGIES: NKDA. PHYSICAL EXAMINATION: The patient's vital signs on admission showed temperature 98.7F, pulse 90, respiratory rate 17 and blood pressure 149/82. O2 saturation 96% on room air. HEENT: Normocephalic, atraumatic. Pupils equal round reactive to light. Extraocular movements intact. Oropharynx is pink and moist. NECK: Supple without lymphadenopathy, thyromegaly or JVD. CHEST: Clear to auscultation with slight wheeze in the left base being the only noted sound. HEART: Regular rate and rhythm. No murmurs, rubs or gallops. ABDOMEN: Soft. No palpable mass. EXTREMITIES: Without cyanosis, clubbing or edema. NEUROLOGIC: The patient is at times confused but mostly alert and oriented. He has no focal deficits presently. The patient does show me a cup full of blood-tinged mucous at the bedside. LAB DATA AND TESTS: The patient's laboratory studies revealed lactic acid 1.0. His white count was 12,400, hemoglobin 13.0, PLT count 200,000. His D-dimer was 749. Sugar 139 nonfasting, BUN 24, creatinine 1.06. Electrolytes normal. Liver enzymes were normal. ProBNP was normal. Troponin was less than 0.012. The patient's x-ray due to the slight elevation of D-dimer CT-angiogram was performed and was negative for pulmonary embolus however it did show diffuse left lung interstitial alveolar opacities with background of large mass-like opacities concerning for the possibility of malignancy. The patient also has some post-surgical changes and calcified pleural plaque. HOSPITAL COURSE: A patient with mild hemoptysis on multiple blood thinners for his previous transient ischemic attacks. We will hold these at this time. We will place the patient empirically on Augmentin 875 twice a day and prednisone 30 mg for three days, 20 mg for three days, 10 mg for three days. I will see him in the office in follow up in three days. We will attempt to obtain outpatient evaluation to his pulmonary physician once he returns from vacation on 08/21/2019. The patient verbalized his understanding and realizes that with the hemoptysis that he need to stop taking his blood thinners but also realizes the increased risk of CVA due to his previous history of transient ischemic attacks. He is requesting to go home otherwise as this is [place] and he wants to spend [place] at home with his family.
[2019-08-15] MEDS ORDERED: Zithromax 500 MG/ 250 ML NaCl Premix 500 MG/250 ML IVPB IV SCH (10:00)
[2019-08-15] MEDS ORDERED: Micronase 5 MG PO SCH (10:00)
[2019-08-15] MEDS ORDERED: ROCEPHIN 1 Gm-D5w 50 ml Bag** 1 G/50 ML IVPB IV SCH (10:00)
[2019-08-15] MEDS ORDERED: ZOCOR 20MG PO SCH (10:00)
[2019-08-15 10:35] VITALS: O2SAT 97
== END 2019-08-15 11:20 | disposition home or self-care (01) ==
LOC: ED 13:41 → MED SURG 18:11
PROVIDERS: ADMIT Family Medicine; ATTEND Family Medicine
DX: R04.2 Hemoptysis (principal); J44.9 Chronic obstructive pulmonary disease, unspecified; E11.9 Type 2 diabetes mellitus without complications; J60 Coalworker's pneumoconiosis; Z79.01 Long term (current) use of anticoagulants; Z79.899 Other long term (current) drug therapy; Z86.73 Personal history of transient ischemic attack (TIA), and cerebral infarction without residual deficits
CPT/HCPCS: 36000; 36415; 71045; 71260; 80053; 82962; 83605; 83880; 84484; 85025; 85379; 87040; 87070; 87077; 87186; 93005; 93041; 94760; 96360; 96365; 96374; 96375; 99285; G0378; J0456; J0696; A9270-GY

== ENCOUNTER 2019-10-27 05:54 | Day surgery (SDC) | payer BLACK LUNG, MEDICARE ==
[2019-10-27] MEDS ORDERED: Lactated Ringers 1,000 ML IV SCH (06:30)
[2019-10-27] MEDS ORDERED: DIPRIVAN 200 MG/20 ML IV ONE (08:16)
[2019-10-27] MEDS ORDERED: Lactated Ringers 1,000 ML IV ONE (08:28)
--- NOTE | 2019-10-27 08:57 | OP ---
SURGERY DATE/TIME: 10/27/2019 0808 PREOPERATIVE DIAGNOSIS: Screening exam. POSTOPERATIVE DIAGNOSES: 1) Transverse colon polyps. 2) Moderate sigmoid diverticulosis. PROCEDURE: Colonoscopy with hot snare polypectomy. SURGEON: Dr. Driscoll. ANESTHESIA: MAC. Medications given by anesthesia department. HISTORY: The patient is a 74 year-old white male presenting now for screening colonoscopy. He was apprised of the risks of the procedure including the risk of perforation, phlebitis, untoward reaction to medication, bleeding and missed lesions. The patient verbalized his understanding and desired to have the procedure performed. DESCRIPTION OF PROCEDURE: The patient was given the medications by the anesthesia department. He had continuous pulse oximetry, ECG monitoring, intermittent blood pressure monitoring and tidal CO2 monitoring during the examination. He was placed in the left lateral decubitus position. A digital rectal examination was performed and revealed normal anal sphincter tone, no masses and normal prostate. The flexible Olympus pediatric colonoscope was used to intubate the rectum. A view of the colon was developed sequentially to the cecum. Upon insertion and withdrawal was noted a polyp that measured approximately 1 cm in size which appeared to be pedunculated, this was removed using hot polypectomy snare and retrieved for pathologic evaluation. Upon insertion and withdrawal otherwise there was noted to be sigmoid diverticulosis which was moderate to severe in nature. No other mucosal lesions being encountered, the scope was removed from the patient who tolerated the procedure well and was sent back to OP recovery in good condition. The prep was noted to be fair to good.
[2019-10-27 09:06] VITALS: O2SAT 98
[2019-10-27 09:27] VITALS: PULSE 74
[2019-10-27 09:32] VITALS: BP 134/78
== END 2019-10-27 08:50 | disposition home or self-care (01) ==
LOC: SDC 05:54
PROVIDERS: ATTEND Family Medicine
DX: Z12.11 Encounter for screening for malignant neoplasm of colon (principal); K63.5 Polyp of colon; K57.30 Diverticulosis of large intestine without perforation or abscess without bleeding; E11.9 Type 2 diabetes mellitus without complications; Z79.01 Long term (current) use of anticoagulants; Z79.899 Other long term (current) drug therapy
CPT/HCPCS: 82962; 88305; 99100; J2704

== ENCOUNTER 2019-12-30 10:27 | Emergency (ER) | payer BLACK LUNG, MEDICARE ==
[2019-12-30 10:51] VITALS: O2SAT 97
--- NOTE | 2019-12-30 11:12 | ERPHSYRPT ---
- History of Present Illness Time Seen by Provider: 12/30/19 11:07 Source: patient Exam Limitations: no limitations Patient Subjective Stated Complaint: pt reports falling after stepping into the tub/shower combo at his home. last evening. pt reports the tub was slick causing him to slip and fall landing on his left side on the tub's rounded edge. pt denies LOC, pt denies striking his head or any other injuries. pt complains of left sided rib pain, increased with movement. pt also reports an area of bruising from 2 weeks ago at this left side at the waistline. pt states he is unaware of any injury that would have caused bruising. Triage Nursing Assessment: pt is aox3, pt appears in pain with slight movement, pt stands with assistance of this nurse, afebrile, pupils perrl, pt speech is clear, appropriate, resps easy non labored, pt able to take a deep breath without pain, pt radial pulses strong and equal, cap refill < 3 seconds, pt skin pink warm dry. pt skin is intact, purple, yellowed, bruising noted to the left lower abd/flank area. a firm area is palpable under the bruising. no bruising or obvious injury noted to the left rib area. Physician History: pt reports falling after stepping into the tub/shower combo at his home. last evening. pt reports the tub was slick causing him to slip and fall landing on his left side on the tub's rounded edge. pt denies LOC, pt denies striking his head or any other injuries. pt complains of left sided rib pain, increased with movement. pt also reports an area of bruising from 2 weeks ago at this left side at the waistline. pt states he is unaware of any injury that would have caused bruising. Patient denies any other symptoms including chest pain nausea vomiting shortness of breath. Occurred: yesterday Reason for Fall: slipped, tripped Injuries/Pain Location: chest (left side rib cage) Loss of Consciousness: no loss of consciousness Quality: sharpness Severity of Pain-Max: moderate Severity of Pain-Current: moderate Modifying Factors: Improves With: nothing Associated Symptoms (Fall): denies symptoms Allergies/Adverse Reactions: No Known Drug Allergies Allergy (Verified 12/30/19 10:51) Home Medications: Aspirin 325 mg PO DAILY 08/14/19 [History] Atorvastatin Calcium [Lipitor] 40 mg PO DAILY 08/14/19 [History] Loratadine 10 mg [Claritin 10 mg] 10 mg PO DAILY 10/20/19 [History] Metformin HCl 500 mg [Glucophage 500 MG] 500 mg PO BIDWM 12/30/19 [History ] Hx Tetanus, Diphtheria Vaccination/Date Given: (unk) Hx Influenza Vaccination/Date Given: Yes Hx Pneumococcal Vaccination/Date Given: Yes Immunizations Up to Date: Yes Travel Risk - International Travel Have you traveled outside of the country in past 3 weeks: No Have you or anyone close to you been diagnosed with or: No Do your reside in a community with a known COVID-19 case?: Yes If Yes where:: [place] - Coronavirus Screening Has patient experienced Coronavirus symptoms: No - Review of Systems Constitutional: No Symptoms Eyes: No Symptoms Ears, Nose, & Throat: No Symptoms Respiratory: No Symptoms Cardiac: No Symptoms Abdominal/Gastrointestinal: No Symptoms, Other (bruise on left side of abdomen. Patient is on eliquis) - Past Medical History Pertinent Past Medical History: Yes Neurological History: TIA ENT History: No Pertinent History Cardiac History: No Pertinent History Respiratory History: No Pertinent History Endocrine Medical History: Diabetes Type II Musculoskeletal History: No Pertinent History GI Medical History: No Pertinent History History: No Pertinent History Psycho-Social History: No Pertinent History Male Reproductive Disorders: No Pertinent History Other Medical History: BLACK LUNG; HX TIAS POSSIBLY, kidney stones - Past Surgical History Past Surgical History: Yes Neuro Surgical History: No Pertinent History Cardiac: No Pertinent History Respiratory: Other Gastrointestinal: Cholecystectomy Genitourinary: No Pertinent History, Other Musculoskeletal: No Pertinent History Male Surgical History: No Pertinent History Other Surgical History: kidney stones - Social History Smoking Status: Former smoker Exposure to second hand smoke: No Alcohol Use: None Drug Use: none Patient Lives Alone: No Significant Family History: heart disease (mother) - Nursing Vital Signs Nursing Vital Signs: Initial Vital Signs Temperature 98 F 12/30/19 10:33 Pulse Rate 95 H 12/30/19 10:33 Respiratory Rate 20 12/30/19 10:33 Blood Pressure 166/78 12/30/19 10:33 O2 Sat by Pulse Oximetry 97 12/30/19 10:33 Pain Scale Pain Intensity 4 - Christiano Coma Score Best Eye Response ([place]): (4) open spontaneously Best Verbal Response (Christiano): (5) oriented Best Motor Response ([place]): (6) obeys commands Christiano Total: 15 - Physical Exam General Appearance: no apparent distress, alert Head Injury: no evidence of injury Eye Exam: PERRL/EOMI ENT Exam: airway nml Neck Exam: normal inspection, No tenderness Respiratory/Chest Exam: normal breath sounds, decreased breath sounds, other ( left lower rib cage tenderness), No chest tenderness, No respiratory distress Cardiovascular Exam: normal heart sounds, regular rate/rhythm Gastrointestinal Exam: soft, No tenderness, No distention, No guarding, No ecchymosis Rectal Exam: deferred Back Exam: normal inspection, No vertebral tenderness Extremity Exam: normal inspection, normal range of motion, pelvis stable, No deformities Neurologic Exam: alert, oriented x 3, cooperative, sensation nml, No motor deficits Skin Exam: normal color, warm, dry SpO2 Interpretation: normal SpO2: 97 O2 Delivery: Room Air - Course Nursing assessment & vital signs reviewed: Yes - Radiology Exams Abdomen X-ray Interpretation: Reviewed by me, Negative Other X-ray Interpretation: Reviewed by me (left side ribs - 7th and 8th nondisplaced fracture) Ordered Tests: Active Orders 24 hr Category Date Time Status KUB Stat Exams 12/30/19 Ordered RIBS UNILATERAL Stat Exams 12/30/19 Ordered - Progress Progress: unchanged, pain not gone completely Counseled pt/family regarding: diagnosis, need for follow-up, rad results - Departure Departure Disposition: Home Clinical Impression: Fracture of rib of left side Qualifiers: Encounter type: initial encounter Rib fracture type: multiple ribs Fracture type: closed Qualified Code(s): S22.42XA - Multiple fractures of ribs, left side , initial encounter for closed fracture Superficial bruising of abdominal wall Qualifiers: Encounter type: initial encounter Qualified Code(s): S30.1XXA - Contusion of abdominal wall, initial encounter Condition: Stable Critical Care Time: No Referrals: AME ULLOA [Primary Care Provider] - Instructions: Preventing Falls, Rib Fracture (DC), Rib Fractures in Adults Additional Instructions: Discharge/Care Plan BEV MONSON was seen on 12/30/19 in the Emergency Room. The patient was counseled regarding Diagnosis,Lab results, Imaging studies, need for follow up and when to return to the Emergency Room. Prescriptions given: Discharge Note I have spoken with the patient and/or caregivers. I have explained the patient' s condition, diagnosis and treatment plan based on the information available to me at this time. I have answered the patient's and/or caregiver's questions and addressed any concerns. The patient and/or caregivers have as good understanding of the patient's diagnosis, condition and treatment plan as can be expected at this point. The vital signs have been stable. The patient's condition is stable and appropriate for discharge from the emergency department. The patient will pursue further outpatient evaluation with the primary care physician or other designated or consulting physician as outlined in the discharge instructions. The patient and/or caregivers are agreeable to this plan of care and follow-up instructions have been explained in detail. The patient and/or caregivers have received these instruction. The patient/and or caregivers are aware that any significant change in condition or worsening of symptoms should prompt an immediate return to this or the closest emergency department or call 911. BEV MONSONE was seen on 12/30/19 n the Emergency Room. At that time you were treated for an emergent condition, during your visit Laboratory, Radiology and/or other procedures may have been ordered. It is very important that you follow-up with your Primary Care Physician AME ULLOA within the next 24-48 hours to review your Emergency Room visit and the final results of testing that was ordered. Some test results such as Urine Cultures, Blood Cultures, and other cultures if ordered will not be finalized for 24-48 hours. If you do not have a Primary Care Provider please call the medical records department at [phone] to obtain a copy of your results or you may sign into our patient portal to obtain these results by visiting us @ [email or web address] and completing the following steps: 1. Click on the Patient Portal link 2. Click the Patient Self Enrollment Link to complete the enrollment form and entering your 3. Once the enrollment form is completed you will receive an email with a temporary ID and password at the email address you provided. 4. Next choose a user name and password. Your user name must be at least 4 characters long and your password must be at least 4 characters long. 5. Choose a security question from the list and provide your answer to the question. If you already have signed into the Health Portal you may access your Health Care Information 15/03 by the following steps: 1. Login to our website @ [email or web address] 2. Enter your original user name and password. FAQS The [facility] Health Portal is an online tool that contains your Lab Results, Radiology Reports, Visit History, Discharge Instructions and Health Summary Lab and Radiology Results will not be available for 72 hours on the portal. The Portal is a secure site, passwords are encryted and URLs are re-written so they cannot be copied and pasted. You and authorized family members are the only ones who can access your Portal. Also there is a timeout feature that protects your information if you leave the Portal page open. If you have technical difficulty please use the Contact Us link on the page this will allow you to submit any questions you have regarding the Portal or you may contact the Medical Record Department at [phone]. Discharge/Care Plan BEV MONSON was seen on 12/30/19 in the Emergency Room. The patient was counseled regarding Diagnosis,Lab results, Imaging studies, need for follow up and when to return to the Emergency Room. Prescriptions given: Discharge Note I have spoken with the patient and/or caregivers. I have explained the patient' s condition, diagnosis and treatment plan based on the information available to me at this time. I have answered the patient's and/or caregiver's questions and addressed any concerns. The patient and/or caregivers have as good understanding of the patient's diagnosis, condition and treatment plan as can be expected at this point. The vital signs have been stable. The patient's condition is stable and appropriate for discharge from the emergency department. The patient will pursue further outpatient evaluation with the primary care physician or other designated or consulting physician as outlined in the discharge instructions. The patient and/or caregivers are agreeable to this plan of care and follow-up instructions have been explained in detail. The patient and/or caregivers have received these instruction. The patient/and or caregivers are aware that any significant change in condition or worsening of symptoms should prompt an immediate return to this or the closest emergency department or call 911. Prescriptions: Lidocaine HCl 5% Patch [Lidoderm Patch 5%] 1 patch TOP BID #10 patch
[2019-12-30 12:01] VITALS: BP 158/85; PULSE 86
--- NOTE | 2019-12-30 20:14 | XRAY ---
Indication: Left-sided pain and bruising following fall. Comparison: None KUB nonacute/nonobstructed with mild scattered colonic fecal debris, cholecystectomy clips, splenic calcified granulomas, vascular calcifications, osteopenia, and mild multilevel degenerative spondylosis. Left rib fractures reported separately.
--- NOTE | 2019-12-30 20:19 | XRAY ---
Indication: Pain and bruising following fall. Comparison: None 2 view left ribs demonstrates osteopenia with nondisplaced posterior lateral 7/8 rib fractures. No hemothorax/pneumothorax. Elsewhere minimal degenerative changes throughout the spine, scattered pulmonary fibrosis/scarring, pulmonary/splenic calcified granulomas, right suprahilar postsurgical changes, and aortic calcifications.
== END 2019-12-30 11:59 | disposition home or self-care (01) ==
LOC: ED 10:27
DX: S22.42XA Multiple fractures of ribs, left side, initial encounter for closed fracture (principal); S30.1XXA Contusion of abdominal wall, initial encounter; W18.2XXA Fall in (into) shower or empty bathtub, initial encounter; Y92.002 Bathroom of unspecified non-institutional (private) residence as the place of occurrence of the external cause; Z79.01 Long term (current) use of anticoagulants; Z79.899 Other long term (current) drug therapy; J60 Coalworker's pneumoconiosis; Z86.73 Personal history of transient ischemic attack (TIA), and cerebral infarction without residual deficits; Z87.442 Personal history of urinary calculi
CPT/HCPCS: 71100; 74018; 99283; L0625

== ENCOUNTER 2020-01-13 19:44 | Inpatient (IN) | payer MEDICARE ==
[2020-01-13] MEDS ORDERED: Sodium Chloride 0.9% 1000 ML 1,000 ML IV STA (20:30)
[2020-01-13] MEDS ORDERED: ROCEPHIN 1 Gm-D5w 50 ml Bag** 1 G/50 ML IVPB IV STA (20:30)
[2020-01-13] MEDS ORDERED: Zithromax 500 MG/ 250 ML NaCl Premix 500 MG/250 ML IVPB IV STA (20:30)
[2020-01-13 20:44] LABS: Absolute Neutrophil Ct (ANC) 12.63 (1.4-6.9); BASOPHIL % 0.1 % (0.0-0.4); Basophil (Absolute #) 0.01 (0-0.4); Eosinophil % 0.3 % (0.00-5.0); Eosinophil (Absolute #) 0.05 (0-0.5); Hematocrit 42.1 % (42-50); Hemoglobin 13.6 gm/dl (12.5-18.0); Lymphocyte (Absolute #) 0.62 (1.0-4.6); Lymphocytes % 4.2 % (24.0-44.0); Mean Cell Volume 92.7 fl (78-100); Mean Corpuscular Hgb Concent. 32.3 g/dl (32-36); Mean Platelet Volume 11.1 fl (7.5-11.0); Monocyte (Absolute #) 1.38 (0.0-1.3); Monocytes % 9.4 % (0.0-12.0); Platelet Count 364 K/mm3 (150-450); Red Blood Count 4.54 M/mm3 (4.1-5.6); White Blood Count 14.7 K/mm3 (4.0-10.5)
[2020-01-13] MEDS ORDERED: ROCEPHIN 1 Gm-D5w 50 ml Bag** 1 G/50 ML IVPB IV ONE (20:45)
[2020-01-13] MEDS ORDERED: Sodium Chloride 0.9% 1000 ML 1,000 ML ONE (20:45)
[2020-01-13 20:53] LABS: INR 1.34 (0.8-3.0); PROTIME 15.2 SECONDS (8.83-12.87)
[2020-01-13 20:56] LABS: Lactic Acid 2.3 (0.4-2.0); VBG CARBOXYHEMOGLOBIN 3.3 % T HGB (0.0-6.9); VBG HCO3- 28.5 meq/L (22-28); VBG HEMOGLOBIN 13.4; VBG O2 SATURATION 47.6 (95-100); VBG POTASSIUM 4.3 (3.5-5.1); VBG pH 7.4 (7.32-7.42)
[2020-01-13 20:59] LABS: ALBUMIN 3.7 g/dL (3.5-5.0); ALKALINE PHOSPHATASE 105 U/L (38-126); ANION GAP 12.3 MEQ/L (5-15); BLOOD UREA NITROGEN 24 mg/dL (9-20); CHLORIDE 100 mmol/L (98-107); Calcium 8.8 mg/dL (8.4-10.2); Carbon Dioxide 28 mmol/L (22-30); Creatinine 1 0.87 mg/dL (0.66-1.25); Glucose 267 mg/dL (74-106); SGOT/AST 17 U/L (17-59); SGPT/ALT 15 U/L (0-50); SODIUM 136 mmol/L (137-145); Total Protein 7.3 g/dL (6.3-8.2)
[2020-01-13] MEDS ORDERED: Zithromax 500 MG/ 250 ML NaCl Premix 500 MG/250 ML IVPB IV ONE (21:23)
[2020-01-13 21:42] LABS: INFLUENZA A NEGATIVE (NEGATIVE); INFLUENZA B NEGATIVE (NEGATIVE); RESPIRATORY SYNCTIAL VIRUS NEGATIVE (Negative)
[2020-01-13] MEDS ORDERED: ENOXAPARIN SODIUM SQ SCH (22:15)
--- NOTE | 2020-01-13 22:33 | ERPHSYRPT ---
- History of Present Illness Time Seen by Provider: 01/13/20 20:40 Source: patient Exam Limitations: no limitations Patient Subjective Stated Complaint: SOB and cough x 1 week + Triage Nursing Assessment: pt to ED c/o SOB and cough. states fell and broke ribs approx 1 week ago, that sx were around long before but worsened with broken ribs. ptdenies fever at home but was febrile on arrival to ED, 101.3 orally. pt was 83% on RA, placed on 2L NC up to 87%, placed on 4L NC up to 96% and less tachycardic. pt has audbile crackles with insp and exp, also noted during auscultation throughout. heart sounds clear. bowel sounds in all 4 quads. pt assist x1 to bed from WC. A&Ox3. lives at home with . Physician History: seen 12/29 after fall and suffered two left rib fx. L7th and 8th. now present soa , fever chills sweats. increased soa cough . Hx of "black lung. Trips covid alert. Timing/Duration: day(s) (3) Cough Quality/Degree: severe, productive cough Possible Cause: occasional episodes Modifying Factors: Improves With: coughing, deep breath Associated Symptoms: fever, chills, chest pain/soreness, cough Allergies/Adverse Reactions: No Known Drug Allergies Allergy (Verified 12/30/19 10:51) Home Medications: Aspirin 325 mg PO DAILY 08/14/19 [History] Atorvastatin Calcium [Lipitor] 40 mg PO DAILY 08/14/19 [History] Loratadine 10 mg [Claritin 10 mg] 10 mg PO DAILY 10/20/19 [History] Metformin HCl 500 mg [Glucophage 500 MG] 500 mg PO BIDWM 12/30/19 [History ] Hx Tetanus, Diphtheria Vaccination/Date Given: Yes Hx Influenza Vaccination/Date Given: Yes Hx Pneumococcal Vaccination/Date Given: No Travel Risk - International Travel Have you traveled outside of the country in past 3 weeks: No Have you or anyone close to you been diagnosed with or: No Do your reside in a community with a known COVID-19 case?: Yes If Yes where:: [place] - Coronavirus Screening Has patient experienced Coronavirus symptoms: Yes Symptoms experienced: fever(equal or > 100.4 F), respiratory symptoms ( i.e.Cought,shortness of breath) Date of fever onset:: 01/06/20 Date of respiratory symptoms onset:: 01/06/20 - Review of Systems Constitutional: Fever, Chills Eyes: No Symptoms Ears, Nose, & Throat: No Symptoms Respiratory: Cough, Dyspnea Cardiac: No Symptoms Abdominal/Gastrointestinal: No Symptoms Genitourinary Symptoms: No Symptoms Musculoskeletal: No Symptoms Skin: No Symptoms Neurological: No Symptoms Psychological: No Symptoms Endocrine: No Symptoms Hematologic/Lymphatic: No Symptoms Immunological/Allergic: No Symptoms - Past Medical History Pertinent Past Medical History: Yes Neurological History: TIA ENT History: No Pertinent History Cardiac History: No Pertinent History Respiratory History: Other Endocrine Medical History: Diabetes Type II Musculoskeletal History: No Pertinent History GI Medical History: No Pertinent History History: No Pertinent History Psycho-Social History: No Pertinent History Male Reproductive Disorders: No Pertinent History Other Medical History: BLACK LUNG; HX TIAS POSSIBLY, kidney stones - Past Surgical History Past Surgical History: Yes Neuro Surgical History: No Pertinent History Cardiac: No Pertinent History Respiratory: Other Gastrointestinal: Cholecystectomy Genitourinary: No Pertinent History, Other Musculoskeletal: No Pertinent History Male Surgical History: No Pertinent History Other Surgical History: kidney stones - Social History Smoking Status: Former smoker Exposure to second hand smoke: Yes Alcohol Use: None Drug Use: none Patient Lives Alone: No Significant Family History: heart disease (mother) - Nursing Vital Signs Nursing Vital Signs: Initial Vital Signs Temperature 101.3 F 01/13/20 20:30 Pulse Rate 135 H 01/13/20 20:30 Respiratory Rate 35 H 01/13/20 20:30 Blood Pressure 163/111 01/13/20 20:30 O2 Sat by Pulse Oximetry 83 L 01/13/20 20:30 Pain Scale Pain Intensity 5 - Physical Exam General Appearance: no apparent distress, moderate distress, alert Eye Exam: PERRL/EOMI, eyes nml inspection Ears, Nose, Throat Exam: normal ENT inspection, TMs normal, pharynx normal, moist mucous membranes Neck Exam: normal inspection, non-tender, supple, full range of motion Respiratory Exam: chest tenderness, respiratory distress, airway intact, diminished breath sounds, crackles/rales, rhonchi, wheezing Cardiovascular Exam: regular rate/rhythm, normal heart sounds Gastrointestinal/Abdomen Exam: soft, No tenderness Back Exam: normal inspection, No CVA tenderness, No vertebral tenderness Extremity Exam: normal inspection, normal range of motion Neurologic Exam: alert, oriented x 3, cooperative, normal mood/affect, sensation nml, No motor deficits Skin Exam: normal color, warm, dry, No rash Lymphatic Exam: No adenopathy SpO2: 96 - Course Nursing assessment & vital signs reviewed: Yes EKG Interpreted by Me: RATE, Sinus Rhythm, NORMAL AXIS, NORMAL INTERVALS, Non- specific ST Changes - Radiology Exams Chest X-ray Interpretation: Interpreted by me, Pneumonia (RLL) Ordered Tests: Active Orders 24 hr Category Date Time Status Bedrest with BRP/BSC ROUTINE Activity 01/13/20 22:15 Active Accucheck Q6H Care 01/13/20 22:11 Active Admit as Inpatient ROUTINE Care 01/13/20 22:11 Active Barrel Ribs Solderer ROUTINE Care 01/13/20 22:14 Active Barrel Ribs Solderer STAT Care 01/13/20 20:31 Active IV Care Q6H Care 01/13/20 22:14 Active Intake and Output Q12H Care 01/13/20 22:11 Active Isolation, Initiate & Maintain Q12H Care 01/13/20 20:42 Active Isolation, Initiate & Maintain Q6H Care 01/13/20 22:11 Active Neuro Checks Q4H Care 01/13/20 22:11 Active Felix Mandujano, Apply ROUTINE Care 01/13/20 22:11 Active Telemetry q4h Care 01/13/20 22:11 Active Vital Signs Q4H Care 01/13/20 22:11 Active Weight,Daily 0600 Care 01/13/20 22:11 Active House Regular Diet Diet 01/13/20 Breakfast Active CHEST 1 VIEW (PORTABLE) Stat Exams 01/13/20 20:30 Taken BLOOD CULTURE Stat Lab 01/13/20 21:30 Received CBC W DIFF AM.LAB Lab 01/14/20 04:00 Ordered CBC W DIFF Stat Lab 01/13/20 20:40 Completed CMP AM.LAB Lab 01/14/20 04:00 Ordered CMP Stat Lab 01/13/20 20:40 Completed CULTURE,SPUTUM Stat Lab 01/13/20 20:30 Uncollected D-DIMER QUANTITATIVE AM.LAB Lab 01/14/20 04:00 Ordered Ferritin Stat Lab 01/13/20 20:40 Completed LDH-LACTATE DEHYDROGENASE Stat Lab 01/13/20 20:40 Completed Lactic Acid Stat Lab 01/13/20 20:50 Completed PROTIME WITH INR Stat Lab 01/13/20 20:40 Completed TROPONIN Q3H Lab 01/13/20 22:15 Ordered TROPONIN Q3H Lab 01/14/20 01:15 Ordered TROPONIN Q3H Lab 01/14/20 04:15 Ordered TROPONIN Q3H Lab 01/14/20 07:15 Ordered TROPONIN Q3H Lab 01/14/20 10:15 Ordered UA W/RFX UR CULTURE Stat Lab 01/13/20 20:30 Uncollected VENOUS BLOOD GAS Stat Lab 01/13/20 20:50 Completed EKG REPEAT IN AM RT 01/13/20 22:11 Active Respiratory Therapy Consult ROUTINE RT 01/13/20 22:11 Active Transfer Order Routine Transfer 01/13/20 Ordered Medication Summary Generic Name Dose Route Start Last Admin Trade Name Freq PRN Reason Stop Dose Admin Enoxaparin Sodium 70 mg 01/13/20 22:15 Enoxaparin Sodium 1 mg/kg (70 mg) 02/12/20 22:14 SQ Q24H ENRIQUE Azithromycin 500 mg in 250 mls @ 250 mls/hr 01/14/20 10:00 Zithromax 500 Mg/ 250 Ml Nacl Premix IV 02/13/20 09:59 Q24H10 ENRIQUE Ceftriaxone Sodium/Dextrose 1 g in 50 mls @ 100 mls/hr 01/14/20 10:00 Rocephin 1 Gm-D5w 50 Ml Bag IV 02/13/20 09:59 Q24H10 ENRIQUE Sodium Chloride 1,000 mls @ 100 mls/hr 01/13/20 22:30 Sodium Chloride 0.9% 1000 Ml IV 02/12/20 22:29 .Q10H ENRIQUE Discontinued Medications Generic Name Dose Route Start Last Admin Trade Name Freq PRN Reason Stop Dose Admin Ceftriaxone Sodium/Dextrose 1 g in 50 mls @ 100 mls/hr 01/13/20 20:30 20:48 Rocephin 1 Gm-D5w 50 Ml Bag IV 01/13/20 20:59 100 mls/hr STAT STA 100 mls/hr Administration Sodium Chloride 1,000 mls @ 999 mls/hr 01/13/20 20:30 01/13/20 20:48 Sodium Chloride 0.9% 1000 Ml IV 01/13/20 21:30 999 mls/hr .Q1H1M STA Administration Azithromycin 500 mg in 250 mls @ 250 mls/hr 01/13/20 20:30 01/13/20 21:32 Zithromax 500 Mg/ 250 Ml Nacl Premix IV 01/13/20 21:29 250 mls/hr STAT STA 250 mls/hr Administration Sodium Chloride Confirm 01/13/20 20:45 Sodium Chloride 0.9% 1000 Ml Administered 01/13/20 20:46 Dose 1,000 mls @ ud .ROUTE .STK-MED ONE Ceftriaxone Sodium/Dextrose Confirm 01/13/20 20:45 Rocephin 1 Gm-D5w 50 Ml Bag Administered 01/13/20 20:46 Dose 1 g in 50 mls @ ud IV .STK-MED ONE Azithromycin Confirm 01/13/20 21:23 Zithromax 500 Mg/ 250 Ml Nacl Premix Administered 01/13/20 21:24 Dose 500 mg in 250 mls @ ud IV .STK-MED ONE Lab/Rad Data: Laboratory Result Diagrams 01/13/20 20:40 01/13/20 20:40 Laboratory Results 01/13/20 01/13/20 01/13/20 Range/Units Unknown 20:50 20:40 WBC (4.0-10.5) K/mm3 RBC (4.1-5.6) M/mm3 Hgb (12.5-18.0) gm/dl Hct (42-50) % MCV (78-100) fl MCH (26-32) pg MCHC (32-36) g/dl RDW (11.5-14.0) % Plt Count (150-450) K/mm3 MPV (7.5-11.0) fl Gran % (36.0-66.0) % Eos # (Auto) (0-0.5) Absolute Lymphs (auto) (1.0-4.6) Absolute Monos (auto) (0.0-1.3) Lymphocytes % (24.0-44.0) % Monocytes % (0.0-12.0) % Eosinophils % (0.00-5.0) % Basophils % (0.0-0.4) % Absolute Granulocytes (1.4-6.9) Basophils # (0-0.4) PT (8.83-12.87) SECONDS INR (0.8-3.0) pO2/FiO2 Ratio 21.0 % VBG pH 7.40 (7.32-7.42) VBG pCO2 at Pat Temp 46 (42-55) mm/Hg VBG pO2 at Pat Temp 27 (25-40) mm/Hg VBG HCO3 28.5 H (22-28) meq/L VBG O2 Sat (Haylie) 47.6 L (95-100) VBG Base Excess 3.0 H (-2.0-2.0) VBG Hemoglobin 13.4 VBG Carboxyhemoglobin 3.3 (0.0-6.9) % T HGB POC Potassium 4.3 (3.5-5.1) Sodium (137-145) mmol/L Potassium (3.5-5.1) mmol/L Chloride (98-107) mmol/L Carbon Dioxide (22-30) mmol/L Anion Gap (5-15) MEQ/L BUN (9-20) mg/dL Creatinine (0.66-1.25) mg/dL Estimated GFR ML/MIN Glucose (74-106) mg/dL Lactic Acid 2.3 H (0.4-2.0) Calcium (8.4-10.2) mg/dL Ferritin 386 (17.9-464) ng/mL Total Bilirubin (0.2-1.3) mg/dL AST (17-59) U/L ALT (0-50) U/L Alkaline Phosphatase (38-126) U/L Lactate Dehydrogenase (120-246) U/L Serum Total Protein (6.3-8.2) g/dL Albumin (3.5-5.0) g/dL Influenza Type A Ag NEGATIVE (NEGATIVE) Influenza Type B Ag NEGATIVE (NEGATIVE) RSV (PCR) NEGATIVE (Negative) 01/13/20 01/13/20 01/13/20 Range/Units 20:40 20:40 20:40 WBC (4.0-10.5) K/mm3 RBC (4.1-5.6) M/mm3 Hgb (12.5-18.0) gm/dl Hct (42-50) % MCV (78-100) fl MCH (26-32) pg MCHC (32-36) g/dl RDW (11.5-14.0) % Plt Count (150-450) K/mm3 MPV (7.5-11.0) fl Gran % (36.0-66.0) % Eos # (Auto) (0-0.5) Absolute Lymphs (auto) (1.0-4.6) Absolute Monos (auto) (0.0-1.3) Lymphocytes % (24.0-44.0) % Monocytes % (0.0-12.0) % Eosinophils % (0.00-5.0) % Basophils % (0.0-0.4) % Absolute Granulocytes (1.4-6.9) Basophils # (0-0.4) PT 15.2 H (8.83-12.87) SECONDS INR 1.34 (0.8-3.0) pO2/FiO2 Ratio % VBG pH (7.32-7.42) VBG pCO2 at Pat Temp (42-55) mm/Hg VBG pO2 at Pat Temp (25-40) mm/Hg VBG HCO3 (22-28) meq/L VBG O2 Sat (Haylie) (95-100) VBG Base Excess (-2.0-2.0) VBG Hemoglobin VBG Carboxyhemoglobin (0.0-6.9) % T HGB POC Potassium (3.5-5.1) Sodium 136 L (137-145) mmol/L Potassium 4.0 (3.5-5.1) mmol/L Chloride 100 (98-107) mmol/L Carbon Dioxide 28 (22-30) mmol/L Anion Gap 12.3 (5-15) MEQ/L BUN 24 H (9-20) mg/dL Creatinine 0.87 (0.66-1.25) mg/dL Estimated GFR > 60.0 ML/MIN Glucose 267 H (74-106) mg/dL Lactic Acid (0.4-2.0) Calcium 8.8 (8.4-10.2) mg/dL Ferritin (17.9-464) ng/mL Total Bilirubin 0.80 (0.2-1.3) mg/dL AST 17 (17-59) U/L ALT 15 (0-50) U/L Alkaline Phosphatase 105 (38-126) U/L Lactate Dehydrogenase 221 (120-246) U/L Serum Total Protein 7.3 (6.3-8.2) g/dL Albumin 3.7 (3.5-5.0) g/dL Influenza Type A Ag (NEGATIVE) Influenza Type B Ag (NEGATIVE) RSV (PCR) (Negative) 01/13/20 Range/Units 20:40 WBC 14.7 H (4.0-10.5) K/mm3 RBC 4.54 (4.1-5.6) M/mm3 Hgb 13.6 (12.5-18.0) gm/dl Hct 42.1 (42-50) % MCV 92.7 (78-100) fl MCH 30.0 (26-32) pg MCHC 32.3 (32-36) g/dl RDW 13.0 (11.5-14.0) % Plt Count 364 (150-450) K/mm3 MPV 11.1 H (7.5-11.0) fl Gran % 86.0 H (36.0-66.0) % Eos # (Auto) 0.05 (0-0.5) Absolute Lymphs (auto) 0.62 L (1.0-4.6) Absolute Monos (auto) 1.38 H (0.0-1.3) Lymphocytes % 4.2 L (24.0-44.0) % Monocytes % 9.4 (0.0-12.0) % Eosinophils % 0.3 (0.00-5.0) % Basophils % 0.1 (0.0-0.4) % Absolute Granulocytes 12.63 H (1.4-6.9) Basophils # 0.01 (0-0.4) PT (8.83-12.87) SECONDS INR (0.8-3.0) pO2/FiO2 Ratio % VBG pH (7.32-7.42) VBG pCO2 at Pat Temp (42-55) mm/Hg VBG pO2 at Pat Temp (25-40) mm/Hg VBG HCO3 (22-28) meq/L VBG O2 Sat (Haylie) (95-100) VBG Base Excess (-2.0-2.0) VBG Hemoglobin VBG Carboxyhemoglobin (0.0-6.9) % T HGB POC Potassium (3.5-5.1) Sodium (137-145) mmol/L Potassium (3.5-5.1) mmol/L Chloride (98-107) mmol/L Carbon Dioxide (22-30) mmol/L Anion Gap (5-15) MEQ/L BUN (9-20) mg/dL Creatinine (0.66-1.25) mg/dL Estimated GFR ML/MIN Glucose (74-106) mg/dL Lactic Acid (0.4-2.0) Calcium (8.4-10.2) mg/dL Ferritin (17.9-464) ng/mL Total Bilirubin (0.2-1.3) mg/dL AST (17-59) U/L ALT (0-50) U/L Alkaline Phosphatase (38-126) U/L Lactate Dehydrogenase (120-246) U/L Serum Total Protein (6.3-8.2) g/dL Albumin (3.5-5.0) g/dL Influenza Type A Ag (NEGATIVE) Influenza Type B Ag (NEGATIVE) RSV (PCR) (Negative) - Progress Progress: unchanged Air Movement: poor Blood Culture(s) Obtained: Yes Antibiotics given: Yes - Departure Departure Disposition: In-patient Admission Clinical Impression: Pneumonia Condition: Critical Critical Care Time: Yes Critical Care Time(excluding separately billable procedures): Critical 30-74 mins Referrals: AME ULLOA [Primary Care Provider] - Instructions: Pneumonia, Adult (DC)
[2020-01-13] MEDS ORDERED: ENOXAPARIN SODIUM SQ ONE (23:38)
[2020-01-13] MEDS: Sodium Chloride 0.9% 1000 ML 1,000 ML IV SCH (23:49)
[2020-01-14 01:09] LABS: Appearance CLEAR (CLEAR); Bilirubin NEGATIVE (NEGATIVE); Blood NEGATIVE Ery/ul (0-5); Glucose 150 mg/dL (NEGATIVE); Ketones NEGATIVE (NEGATIVE); Leukocyte Esterase NEGATIVE (NEGATIVE); Mucus SLIGHT /HPF (NEGATIVE); Nitrite NEGATIVE (NEGATIVE); Protein,Urine Dip 30 (Negative); Specific Gravity 1.025 (1.005-1.025); Urobilinogen 4 mg/dL (0-1)
[2020-01-14] MEDS ORDERED: TYLENOL 325 MG PO PRN (01:15)
[2020-01-14 05:56] LABS: Absolute Neutrophil Ct (ANC) 12.19 (1.4-6.9); BASOPHIL % 0.1 % (0.0-0.4); Basophil (Absolute #) 0.01 (0-0.4); Eosinophil % 0.1 % (0.00-5.0); Eosinophil (Absolute #) 0.01 (0-0.5); Hematocrit 36.3 % (42-50); Hemoglobin 11.7 gm/dl (12.5-18.0); Lymphocyte (Absolute #) 0.84 (1.0-4.6); Lymphocytes % 5.7 % (24.0-44.0); Mean Cell Volume 92.8 fl (78-100); Mean Corpuscular Hemoglobin 29.9 pg (26-32); Mean Corpuscular Hgb Concent. 32.2 g/dl (32-36); Mean Platelet Volume 10.5 fl (7.5-11.0); Monocyte (Absolute #) 1.57 (0.0-1.3); Monocytes % 10.7 % (0.0-12.0); Neutrophil % 83.4 % (36.0-66.0); Platelet Count 320 K/mm3 (150-450); Red Blood Count 3.91 M/mm3 (4.1-5.6); Red Cell Distribution Width 13.1 % (11.5-14.0); White Blood Count 14.6 K/mm3 (4.0-10.5)
[2020-01-14 06:13] LABS: ALKALINE PHOSPHATASE 81 U/L (38-126); ANION GAP 9.3 MEQ/L (5-15); BLOOD UREA NITROGEN 19 mg/dL (9-20); CHLORIDE 105 mmol/L (98-107); Calcium 8.1 mg/dL (8.4-10.2); Carbon Dioxide 28 mmol/L (22-30); Creatinine 1 0.75 mg/dL (0.66-1.25); Glucose 188 mg/dL (74-106); Potassium 3.9 mmol/L (3.5-5.1); SGOT/AST 15 U/L (17-59); SGPT/ALT 12 U/L (0-50); SODIUM 137 mmol/L (137-145); Total Protein 6.3 g/dL (6.3-8.2)
[2020-01-14 07:49] LABS: Slide Review 1 YES
--- NOTE | 2020-01-14 07:58 | XRAY ---
Indication: Fever and cough. Comparison: October 16, 2019. Portable chest less inflated with new right infrahilar airspace disease and tiny effusion. Remaining heart and lungs unremarkable with stable right suprahilar postsurgical changes and chronic pulmonary fibrosis/scarring. Bony thorax intact again with degenerative changes.
[2020-01-14] MEDS: Sodium Chloride 0.9% 1000 ML 1,000 ML IV SCH ×2 (09:42→20:54)
[2020-01-14] MEDS: Pepcid 20 MG PO SCH ×2 (09:43→20:58)
[2020-01-14] MEDS: ENOXAPARIN SODIUM SQ SCH ×2 (09:45→21:02)
[2020-01-14] MEDS: Glucophage 500 MG PO SCH ×2 (09:46→17:39)
[2020-01-14] MEDS: Lidoderm Patch 5% TOP SCH ×2 (09:47→20:57)
[2020-01-14] MEDS: solu-CORTEF 100MG IV SCH ×2 (09:48→20:59)
[2020-01-14] MEDS ORDERED: HUMALOG SQ PRN (12:33)
[2020-01-14] MEDS: ROCEPHIN 1 Gm-D5w 50 ml Bag** 1 G/50 ML IVPB IV SCH (20:58)
[2020-01-14] MEDS: Zithromax 500 MG/ 250 ML NaCl Premix 500 MG/250 ML IVPB IV SCH (21:39)
[2020-01-14] MEDS ORDERED: ENOXAPARIN SODIUM SQ SCH (22:00)
[2020-01-15 05:55] LABS: Hematocrit 38.6 % (42-50); Hemoglobin 12.1 gm/dl (12.5-18.0); Mean Cell Volume 93.9 fl (78-100); Mean Corpuscular Hemoglobin 29.4 pg (26-32); Mean Corpuscular Hgb Concent. 31.3 g/dl (32-36); Mean Platelet Volume 10.9 fl (7.5-11.0); Platelet Count 343 K/mm3 (150-450); Red Blood Count 4.11 M/mm3 (4.1-5.6); White Blood Count 12.9 K/mm3 (4.0-10.5)
[2020-01-15 06:14] LABS: ANION GAP 10.8 MEQ/L (5-15); Potassium 4.4 mmol/L (3.5-5.1)
[2020-01-15] MEDS: Glucophage 500 MG PO SCH ×2 (07:58→16:05)
[2020-01-15] MEDS: Sodium Chloride 0.9% 1000 ML 1,000 ML IV SCH ×2 (07:58→15:42)
[2020-01-15] MEDS: ENOXAPARIN SODIUM SQ SCH ×2 (09:51→21:21)
[2020-01-15] MEDS: solu-CORTEF 100MG IV SCH ×2 (09:52→21:23)
[2020-01-15] MEDS: Pepcid 20 MG PO SCH ×2 (09:52→21:21)
[2020-01-15] MEDS: Lidoderm Patch 5% TOP SCH ×2 (09:52→21:22)
[2020-01-15] MEDS: ROCEPHIN 1 Gm-D5w 50 ml Bag** 1 G/50 ML IVPB IV SCH (21:20)
[2020-01-15] MEDS: Zithromax 500 MG/ 250 ML NaCl Premix 500 MG/250 ML IVPB IV SCH (21:23)
[2020-01-16] MEDS: Sodium Chloride 0.9% 1000 ML 1,000 ML IV SCH (03:45)
[2020-01-16] MEDS: Glucophage 500 MG PO SCH (08:11)
[2020-01-16] MEDS: Lidoderm Patch 5% TOP SCH (10:20)
[2020-01-16] MEDS: ENOXAPARIN SODIUM SQ SCH (10:20)
[2020-01-16] MEDS: solu-CORTEF 100MG IV SCH (10:20)
[2020-01-16] MEDS: Pepcid 20 MG PO SCH (10:20)
[2020-01-16 13:44] VITALS: BP 151/67; PULSE 63; O2SAT 94
== END 2020-01-16 15:40 | disposition home or self-care (01) | DRG 195 ==
LOC: ED 19:44 → MED SURG 23:18
PROVIDERS: ADMIT Family Medicine; ATTEND Family Medicine
DX: J18.9 Pneumonia, unspecified organism (principal); E11.9 Type 2 diabetes mellitus without complications; S22.42XD Multiple fractures of ribs, left side, subsequent encounter for fracture with routine healing; J44.9 Chronic obstructive pulmonary disease, unspecified; Z86.73 Personal history of transient ischemic attack (TIA), and cerebral infarction without residual deficits; Z79.899 Other long term (current) drug therapy
CPT/HCPCS: 36415; 80051; 80053; 81001; 82728; 82805; 82962; 83036; 83605; 83615; 83880; 84484; 85025; 85027; 85379; 85610; 86140; 87040; 87070; 87631; 93005; 93041; 94762; 96360; 96365; 96367; 99291; U0003; 71045; 99284; J0456; J0696; J1650; J1720; J1817; A9270-GY

== ENCOUNTER 2020-02-26 15:06 | Emergency (ER) | payer BLACK LUNG, MEDICARE ==
--- NOTE | 2020-02-26 15:43 | ERPHSYRPT ---
- History of Present Illness Time Seen by Provider: 02/26/20 15:18 Source: patient Exam Limitations: no limitations Patient Subjective Stated Complaint: wrist pain Triage Nursing Assessment: pt to ED c/o L wrist pain from fall01/24/20. states tripped over blanket and caught self with L wrist. rates 2/10 pain, relieved with biofreeze at home. ice pack applied on arrival to ED. noted swelling. no color change, no loss sensation, cap refil < 3 sec distal to injury, strong radial pulses bilaterally. Physician History: 74 years old male presented in the ER with chief complaint of left wrist pain. Patient report he tripped over a blanket leading to fall and tried to catch himself with outstretched left hand 3 days ago. He is complaining of moderate intensity dull to sharp pain with movements at left wrist and better with being still. Minimal swelling of the wrist. No numbness of fingers. No injury anywhere else. Occurred: days ago (3) Method of Injury: fell Quality: aching, sharpness Severity of Pain-Max: moderate Severity of Pain-Current: mild Extremities Pain Location: wrist: left Modifying Factors: Improves With: movement, pain medication, rest Associated Symptoms: none Allergies/Adverse Reactions: No Known Drug Allergies Allergy (Verified 02/26/20 15:23) Home Medications: Metformin HCl 500 mg [Glucophage 500 MG] 500 mg PO BIDWM 12/30/19 [History] Hx Tetanus, Diphtheria Vaccination/Date Given: Yes Hx Influenza Vaccination/Date Given: Yes Hx Pneumococcal Vaccination/Date Given: No Travel Risk - International Travel Have you traveled outside of the country in past 3 weeks: No - Coronavirus Screening Close contact with a COVID-19 positive Pt in past 14-21 Days: No - Review of Systems Constitutional: No Symptoms Ears, Nose, & Throat: No Symptoms Respiratory: No Symptoms Cardiac: No Symptoms Abdominal/Gastrointestinal: No Symptoms Musculoskeletal: Injury, Joint Pain Skin: No Symptoms Neurological: No Symptoms Psychological: No Symptoms Endocrine: No Symptoms - Past Medical History Pertinent Past Medical History: Yes Neurological History: TIA ENT History: No Pertinent History Cardiac History: No Pertinent History Respiratory History: Other Endocrine Medical History: Diabetes Type II Musculoskeletal History: No Pertinent History GI Medical History: No Pertinent History History: No Pertinent History Psycho-Social History: No Pertinent History Male Reproductive Disorders: No Pertinent History Other Medical History: BLACK LUNG; HX TIAS POSSIBLY, kidney stones - Past Surgical History Past Surgical History: Yes Neuro Surgical History: No Pertinent History Cardiac: No Pertinent History Respiratory: Other Gastrointestinal: Cholecystectomy Genitourinary: No Pertinent History, Other Musculoskeletal: No Pertinent History Male Surgical History: No Pertinent History Other Surgical History: kidney stones - Social History Smoking Status: Former smoker Exposure to second hand smoke: No Alcohol Use: None Drug Use: none Patient Lives Alone: No Significant Family History: heart disease (mother) - Nursing Vital Signs Nursing Vital Signs: Initial Vital Signs Temperature 98.5 F 02/26/20 15:16 Pulse Rate 108 H 02/26/20 15:16 Respiratory Rate 18 02/26/20 15:16 Blood Pressure 154/86 02/26/20 15:16 O2 Sat by Pulse Oximetry 98 02/26/20 15:16 Pain Scale Pain Intensity 2 - Physical Exam General Appearance: no apparent distress Eyes, Ears, Nose, Throat Exam: normal ENT inspection Neck Exam: normal inspection, supple, full range of motion Cardiovascular/Respiratory Exam: normal breath sounds, regular rate/rhythm Shoulder Exam: normal inspection Elbow/Forearm Exam: normal inspection Wrist Exam: bone tenderness (Left wrist), limited ROM, pain, soft tissue tenderness, swelling (Normal) Hand Exam: normal inspection Neuro/Tendon Exam: normal sensation Mental Status Exam: alert, oriented x 3, cooperative Skin Exam: normal color SpO2 Interpretation: normal SpO2: 98 O2 Delivery: Room Air Ordered Tests: Active Orders 24 hr Category Date Time Status WRIST (MIN 3 VIEWS) Stat Exams 02/26/20 15:47 Completed - Progress Progress: unchanged, re-examined Progress Note: 02/26/20 16:35 Ruled out fracture dislocation. He has old styloid fracture with soft tissue swelling. I believe patient has sprain. Placed in a premade wrist splint and recommended outpatient follow-up with Ortho clinic for reevaluation. He is offered pain medication here and to go home but he does not want and says that he will take Tylenol as needed. Counseled pt/family regarding: diagnosis, need for follow-up, rad results - Departure Departure Disposition: Home Clinical Impression: Sprain of left wrist Qualifiers: Encounter type: initial encounter Qualified Code(s): S63.502A - Unspecified sprain of left wrist, initial encounter Condition: Stable Critical Care Time: No Referrals: AME ULLOA [Primary Care Provider] - Follow Up with PCP/3 days BEN CONTRERAS NP [NON-STAFF PHY W/O PRIVILEGES] - (1-2 DAYS FOR RE EVALUATION) Instructions: Wrist Sprain (DC) Additional Instructions: Take Tylenol as needed. Apply ice. Avoid exertional activities. Follow-up with primary care and orthopedic clinic for reevaluation. Return to ER for any worsening.
--- NOTE | 2020-02-26 16:07 | XRAY ---
Exam: 3 views of the left wrist from 02/26/2020. Comparison: None. Indication: 74-year-old male fell and landed on left wrist, complains of pain. Findings: AP, oblique, and lateral radiographs of the left wrist were obtained. I see no acute fracture or dislocation. A prominent calcification is seen adjacent to the distal left ulna which may represent an old ununited fracture of the ulnar styloid process. Minimal chondrocalcinosis is seen within the triangular fibrocartilage. The radiocarpal joint space appears adequately preserved. Moderate arteriosclerotic vascular calcification is seen along the volar aspect of the distal left forearm and wrist. Mild generalized soft tissue prominence is noted about the left wrist. I see some narrowing of the joint space between the carpal scaphoid bone and multangular bones indicating osteoarthritis. Carpal scaphoid bone appears intact. Impression: 1. I note generalized soft tissue swelling about the left wrist. However, no acute left wrist fracture or dislocation is seen. 2. Other incidental findings are noted, as discussed above.
[2020-02-26 16:22] VITALS: BP 127/79; PULSE 79
[2020-02-26 16:37] VITALS: O2SAT 98
== END 2020-02-26 16:52 | disposition home or self-care (01) ==
LOC: ED 15:06
DX: S63.502S Unspecified sprain of left wrist, sequela (principal); M25.432 Effusion, left wrist; W01.0XXS Fall on same level from slipping, tripping and stumbling without subsequent striking against object, sequela
CPT/HCPCS: 73110; 99283; L3908

== ENCOUNTER 2021-12-18 15:44 | Emergency (ER) | payer BLACK LUNG, MEDICARE ==
--- NOTE | 2021-12-18 15:52 | ERPHSYRPT ---
- History of Present Illness Time Seen by Provider: 12/18/21 15:52 Source: patient, EMS Exam Limitations: no limitations Physician History: This is a 76-year-old diabetic right-handed male who was working with a table saw and suffered a laceration to the webspace between the thumb and index finger on the left hand. Patient arrives with no active bleeding and is neurovascularly intact as well as tendons appear to be intact as well on exam. Occurred: just prior to arrival Method of Injury: other (Table saw) Quality: aching, throbbing Severity of Pain-Max: moderate Severity of Pain-Current: moderate Extremities Pain Location: wrist: left (First webspace between thumb and index finger) Modifying Factors: Improves With: movement Associated Symptoms: none Allergies/Adverse Reactions: No Known Drug Allergies Allergy (Verified 12/18/21 17:04) Hx Tetanus, Diphtheria Vaccination/Date Given: Yes Hx Influenza Vaccination/Date Given: Yes Hx Pneumococcal Vaccination/Date Given: No Travel Risk - International Travel Have you traveled outside of the country in past 3 weeks: No - Coronavirus Screening Are you exhibiting any of the following symptoms?: No Close contact with a COVID-19 positive Pt in past 14-21 Days: No - Review of Systems Constitutional: No Symptoms Eyes: No Symptoms Ears, Nose, & Throat: No Symptoms Respiratory: No Symptoms Cardiac: No Symptoms Abdominal/Gastrointestinal: No Symptoms Genitourinary Symptoms: No Symptoms Musculoskeletal: Injury (Left hand laceration) Skin: Other (Left hand laceration) Neurological: No Symptoms Psychological: No Symptoms Endocrine: No Symptoms Hematologic/Lymphatic: No Symptoms Immunological/Allergic: No Symptoms All Other Systems: Reviewed and Negative - Past Medical History Pertinent Past Medical History: Yes Neurological History: TIA ENT History: No Pertinent History Cardiac History: No Pertinent History Respiratory History: Other Endocrine Medical History: Diabetes Type II Musculoskeletal History: No Pertinent History GI Medical History: No Pertinent History History: No Pertinent History Psycho-Social History: No Pertinent History Male Reproductive Disorders: No Pertinent History Other Medical History: BLACK LUNG; HX TIAS POSSIBLY, kidney stones - Past Surgical History Past Surgical History: Yes Neuro Surgical History: No Pertinent History Cardiac: No Pertinent History Respiratory: Other Gastrointestinal: Cholecystectomy Genitourinary: No Pertinent History, Other Musculoskeletal: No Pertinent History Male Surgical History: No Pertinent History Other Surgical History: kidney stones - Social History Smoking Status: Former smoker Exposure to second hand smoke: No Alcohol Use: None Drug Use: none Patient Lives Alone: No Significant Family History: heart disease (mother) - Nursing Vital Signs Nursing Vital Signs: Initial Vital Signs Temperature 97.9 F 12/18/21 15:51 Pulse Rate 78 12/18/21 15:51 Respiratory Rate 24 12/18/21 15:51 Blood Pressure 145/79 12/18/21 15:51 O2 Sat by Pulse Oximetry 99 12/18/21 15:51 Pain Scale Pain Intensity 10 - Physical Exam General Appearance: no apparent distress, alert, anxiety Eyes, Ears, Nose, Throat Exam: normal ENT inspection, moist mucous membranes Neck Exam: normal inspection, non-tender, supple, full range of motion Cardiovascular/Respiratory Exam: chest non-tender, no respiratory distress Abdominal Exam: non-tender Back Exam: normal inspection, normal range of motion, No CVA tenderness, No vert ebral tenderness Shoulder Exam: normal inspection, non-tender, no evidence of injury, normal ROM Elbow/Forearm Exam: normal inspection, non-tender, no evidence of injury, normal ROM Wrist Exam: normal inspection, non-tender, no evidence of injury, normal ROM Hand Exam: normal ROM, laceration (Approximately 7 cm laceration in the first web space between the left thumb and left index finger), soft tissue tenderness Neuro/Tendon Exam: normal sensation, normal motor functions, normal tendon functions, responds to pain, no evidence tendon injury Mental Status Exam: alert, oriented x 3, cooperative Skin Exam: laceration (See above) SpO2 Interpretation: normal O2 Delivery: Room Air Procedures - Laceration/Wound Repair Left Hand Time of Procedure: 16:45 Wound Location: Left, hand Wound Length (cm): 7 Wound's Depth, Shape: into muscle, linear, contused tissue Wound Explored: clean (No foreign body noted. Evaluation was performed in bloodless field to the base) Irrigated: Yes Hibiclens Prep: Yes Anesthesia: 1% Lidocaine (10 mL of 1% lidocaine plain was used to anesthetize the skin and superficial underlying muscle layer.) Volume Anesthetic (ccs): 10 Wound Debrided: minimal Wound Repaired With: sutures Suture Size/Type: 3-0, nylon, vicryl Number of Sutures: 7 (Outer 30 nylon sutures) Layer Closure?: Yes Deep Layer Suture Size/Type: 3:0 (2. Stitches of 3-0 Vicryl were used to approximate the fascia of the underlying muscle.) Sterile Dressing Applied?: Yes Type of Splint Applied: After repair of the laceration in 2 layers as described above, the area was cleaned dried and a thin layer of bacitracin ointment was placed on the laceration repair site line. Nonstick gauze was placed overlying this followed by Kerlix and patient was placed in a functional position and the site was covered with an Eduardo bandage. There was good capillary refill and a palpable radial pulse after the dressing was placed - Course Nursing assessment & vital signs reviewed: Yes Ordered Tests: Medication Summary Generic Name Dose Route Start Last Admin Trade Name Freq PRN Reason Stop Dose Admin Hydrocodone Bitart/Acetaminophen 1 tab 12/18/21 17:11 Hydrocodone/Apap 5/325 Mg Tablet PO 12/18/21 17:12 STAT ONE Diphtheria/Tetanus/Acell Pertussis 0.5 ml 12/18/21 17:11 Tdap --Diph,Pertuss(Acell),Tet Vac/Pf 0.5 Ml Vial IM 12/18/21 17:12 .ONCE ONE Discontinued Medications Generic Name Dose Route Start Last Admin Trade Name Freq PRN Reason Stop Dose Admin Lidocaine HCl Confirm 12/18/21 16:39 Lidocaine Hcl 1% 20 Ml Mdv 20 Ml Ml Administered 12/18/21 16:40 Dose 10 ml .ROUTE .STK-MED ONE - Progress Progress: improved, pain not gone completely Counseled pt/family regarding: diagnosis, need for follow-up - Departure Departure Disposition: Home Clinical Impression: Laceration of left hand Condition: Stable Critical Care Time: No Referrals: AME ULLOA [Primary Care Provider] - Follow up/PCP as directed Additional Instructions: Keep dressing in place until you are evaluated by the hand surgeon. Follow-up with a hand surgeon at your scheduled appointment date and time. Take your medications as prescribed. Prescriptions: Hydrocodone/APAP 5/325 [[place] 5/325 mg] 1 each PO Q8H PRN PRN #8 tablet MDD 3 PRN Reason: Pain Cephalexin Mh 500 mg [Keflex 500 mg] 500 mg PO TID #21 cap
[2021-12-18 16:11] VITALS: PULSE 78
[2021-12-18] MEDS ORDERED: XYLOCAINE 1% HCL 20 ML MDV ONE (16:39)
[2021-12-18] MEDS ORDERED: NORCO 5/325 MG PO ONE (17:11)
[2021-12-18] MEDS ORDERED: Adacel Vial IM ONE ×2 (17:11→17:24)
[2021-12-18] MEDS ORDERED: KEFLEX 500 MG PO ONE (17:19)
[2021-12-18] MEDS ORDERED: KEFLEX 500 MG ONE (17:24)
[2021-12-18] MEDS ORDERED: NORCO 5/325 MG ONE (17:24)
[2021-12-18 17:40] VITALS: BP 140/70; O2SAT 96
== END 2021-12-18 18:00 | disposition home or self-care (01) ==
LOC: ED 15:44
DX: S61.412A Laceration without foreign body of left hand, initial encounter (principal); W31.2XXA Contact with powered woodworking and forming machines, initial encounter; Y93.H3 Activity, building and construction; M79.642 Pain in left hand; E11.9 Type 2 diabetes mellitus without complications; Z79.891 Long term (current) use of opiate analgesic
CPT/HCPCS: 12042; 90471; 90715; 99284; A9270-GY

== ENCOUNTER 2022-08-11 10:56 | Day surgery (SDC) | payer MEDICARE ==
[~2022-08-11 10:56] MED LIST: ACETAZOLAMIDE 250 MG TABLET PO ONE; Ak-Dilate OPHTHALMIC*** 1.065 ML, Cyclogyl 1% OPHTH SOL 1.065 ML, GATIFLOXACIN 0.5% OPH... OP ONE; BETADINE 5% OPHTHALMIC 30 ML OP ONE; Lactated Ringers 1,000 ML IV SCH; NON-FORMULARY ITEM OP ONE; TETRACAINE 0.5% STERI-UNIT SOL OP ONE; Zofran 4 MG/2 ML VIAL IV PRN; cefUROXime sodium 0.005 GM in Sodium Chloride Flush 30 ML*** 0.5 ML IJ ONE
[2022-08-11] MEDS ORDERED: Lactated Ringers 1,000 ML IV ONE (11:38)
[2022-08-11] MEDS: TETRACAINE 0.5% STERI-UNIT SOL OP ONE ×2 (11:52→12:30)
[2022-08-11] MEDS ORDERED: Xylocaine-Mpf 2% 5 Ml Vial ONE (13:45)
[2022-08-11] MEDS ORDERED: DIPRIVAN 200 MG/20 ML IV ONE (13:45)
[2022-08-11 15:01] VITALS: BP 137/70; PULSE 79; O2SAT 100
[2022-08-11] MEDS ORDERED: Epinephrine Preservative Free 1 MG/ML ONE (15:23)
== END 2022-08-11 15:05 | disposition home or self-care (01) ==
LOC: SDC 10:56
PROVIDERS: ATTEND Ophthalmology
DX: H25.812 Combined forms of age-related cataract, left eye (principal)
CPT/HCPCS: 99100; C1780; J0171; J2704; A9270-GY

== ENCOUNTER 2022-11-24 17:52 | Emergency (ER) | payer MEDICARE ==
--- NOTE | 2022-11-24 18:00 | ERPHSYRPT ---
- History of Present Illness Time Seen by Provider: 11/24/22 18:00 Historian: patient Exam Limitations: no limitations Physician History: This is a 77-year-old white male patient of Dr. Driscoll who presents with constipation for over a month although he stated he did have a small bowel movement today, bilateral flank pain and suprapubic pressure. He has had difficulty urinating as well. He was diagnosed with a urinary tract infection on 11/12/2022 and, per patient's daughter's report, he only took 3 to 4 days worth of the medication. Patient is a history of TIAs, he is very hard of hearing, he is diabetic and he has a history of gastroesophageal reflux disease. Patient denies chest pain and he denies shortness of breath. Patient has never had a colonoscopy. Activities at Onset: none Abdominal Pain Onset Location: suprapubic, flank (Bilateral flanks) Severity of Pain-Max: mild (To moderate) Severity of Pain-Current: mild (To moderate) Modifying Factors: Improves With: nothing Associated Symptoms: denies symptoms, No chest pain, No fever/chills, No nausea, No shortness of breath, No vomiting Previous symptoms: no prior history, no recent treatment Allergies/Adverse Reactions: No Known Drug Allergies Allergy (Verified 11/24/22 18:27) Home Medications: No Reportable Medications [No Reported Medications] 11/24/22 [History] Hx Tetanus, Diphtheria Vaccination/Date Given: Yes Hx Influenza Vaccination/Date Given: Yes Hx Pneumococcal Vaccination/Date Given: No Travel Risk - International Travel Have you traveled outside of the country in past 3 weeks: No - Coronavirus Screening Are you exhibiting any of the following symptoms?: No Close contact with a COVID-19 positive Pt in past 14-21 Days: No - Vaccine Status Have you recieved a Covid-19 vaccination: No - Review of Systems Constitutional: No Symptoms Eyes: No Symptoms Ears, Nose, & Throat: No Symptoms Respiratory: No Symptoms Cardiac: No Symptoms Abdominal/Gastrointestinal: Abdominal Pain (Prepubic) Genitourinary Symptoms: Flank Pain (Bilateral flank pressure) Musculoskeletal: No Symptoms Skin: No Symptoms Neurological: No Symptoms Psychological: No Symptoms Endocrine: No Symptoms Hematologic/Lymphatic: No Symptoms Immunological/Allergic: No Symptoms All Other Systems: Reviewed and Negative - Past Medical History Pertinent Past Medical History: Yes Neurological History: TIA ENT History: No Pertinent History Cardiac History: Other Respiratory History: Other Endocrine Medical History: Diabetes Type II Musculoskeletal History: No Pertinent History GI Medical History: No Pertinent History History: No Pertinent History Psycho-Social History: No Pertinent History Male Reproductive Disorders: No Pertinent History Other Medical History: BLACK LUNG; HX TIAS POSSIBLY, gall stones no longer diabetic - Past Surgical History Past Surgical History: Yes Neuro Surgical History: No Pertinent History Cardiac: Cardiac Catheterization Respiratory: Other Gastrointestinal: No Pertinent History Genitourinary: No Pertinent History Musculoskeletal: No Pertinent History Male Surgical History: No Pertinent History Other Surgical History: . - Social History Smoking Status: Former smoker Exposure to second hand smoke: No Alcohol Use: None Drug Use: none Patient Lives Alone: No Significant Family History: heart disease (mother) - Nursing Vital Signs Nursing Vital Signs: Initial Vital Signs Temperature 97.5 F 11/24/22 18:14 Pulse Rate 81 11/24/22 18:14 Blood Pressure 160/79 11/24/22 18:14 O2 Sat by Pulse Oximetry 98 11/24/22 18:14 Pain Scale Pain Intensity 7 - Physical Exam General Appearance: no apparent distress (Very hard of hearing), alert, other Eye Exam: PERRL/EOMI, eyes nml inspection Ears, Nose, Throat Exam: moist mucous membranes, other (Patient missing several teeth) Neck Exam: normal inspection, non-tender, supple, full range of motion Respiratory Exam: normal breath sounds, lungs clear, airway intact, No chest tenderness, No respiratory distress Cardiovascular Exam: regular rate/rhythm, normal heart sounds, normal peripheral pulses Gastrointestinal/Abdomen Exam: soft, normal bowel sounds, tenderness (Mild suprapubic tenderness to palpation), guarding (Mild suprapubic tenderness to palpation) Rectal Exam: not done Back Exam: normal inspection, normal range of motion, CVA tenderness (Mild to percussion), No vertebral tenderness Extremity Exam: normal inspection, normal range of motion, pelvis stable Neurologic Exam: alert, oriented x 3, cooperative, positive printer operator II-XII nml as tested, normal mood/affect, nml cerebellar function, nml station & gait, sensation nml Skin Exam: normal color, warm, dry Lymphatic Exam: No adenopathy SpO2 Interpretation: normal O2 Delivery: Room Air - Course Nursing assessment & vital signs reviewed: Yes Ordered Tests: Active Orders 24 hr Category Date Time Status Cath for Specimen-Straight STAT Care 11/24/22 18:43 Active ABDOMEN AND PELVIS W/0 CONTRAS [CT] Stat Exams 11/24/22 18:43 Taken AMYLASE Stat Lab 11/24/22 19:08 Completed CBC W DIFF Stat Lab 11/24/22 19:08 Completed CMP Stat Lab 11/24/22 19:08 Completed CULTURE,URINE Stat Lab 11/24/22 18:54 Received LIPASE Stat Lab 11/24/22 19:08 Completed UA W/RFX UR CULTURE Stat Lab 11/24/22 18:54 Completed Medication Summary Generic Name Dose Route Start Last Admin Trade Name Freq PRN Reason Stop Dose Admin Tamsulosin HCl 0.4 mg 11/25/22 20:55 11/24/22 21:13 Tamsulosin Hcl 0.4 Mg Cap PO 11/25/22 20:56 0.4 mg STAT ONE Administration Discontinued Medications Generic Name Dose Route Start Last Admin Trade Name Freq PRN Reason Stop Dose Admin Ceftriaxone Sodium/Dextrose 1 g in 50 mls @ 100 mls/hr 11/24/22 20:50 11/24/22 21:14 Rocephin 1 Gm-D5w 50 Ml Bag IV 11/24/22 21:19 100 mls/hr STAT STA 100 mls/hr Administration Ceftriaxone Sodium/Dextrose Confirm 11/24/22 21:09 Rocephin 1 Gm-D5w 50 Ml Bag Administered 11/24/22 21:10 Dose 1 g in 50 mls @ ud IV .STK-MED ONE Ketorolac Tromethamine 30 mg 11/24/22 20:54 11/24/22 21:13 Ketorolac Tromethamine 30 Mg/Ml Inj IV 11/24/22 20:55 30 mg STAT ONE Administration Ketorolac Tromethamine Confirm 11/24/22 21:08 Ketorolac Tromethamine 30 Mg/Ml Inj Administered 11/24/22 21:09 Dose 30 mg .ROUTE .STK-MED ONE Levofloxacin 500 mg 11/24/22 20:50 11/24/22 21:13 Levofloxacin 500 Mg Tablet PO 11/24/22 20:51 500 mg STAT ONE Administration Levofloxacin Confirm 11/24/22 21:08 Levofloxacin 500 Mg Tablet Administered 11/24/22 21:09 Dose 500 mg .ROUTE .STK-MED ONE Tamsulosin HCl Confirm 11/24/22 21:09 Tamsulosin Hcl 0.4 Mg Cap Administered 11/24/22 21:10 Dose 0.4 mg .ROUTE .K-MED ONE Lab/Rad Data: Laboratory Result Diagrams 11/24/22 19:08 11/24/22 19:08 Laboratory Results 11/24/22 11/24/22 11/24/22 Range/Units 19:08 19:08 18:54 WBC 9.8 (4.0-10.5) x10^3/uL RBC 4.35 (4.1-5.6) x10^6/uL Hgb 12.9 (12.5-18.0) g/dL Hct 42.2 (42-50) % MCV 97.0 (78-100) fL MCH 29.7 (26-32) pg MCHC 30.6 L (32-36) g/dL RDW 12.1 (11.5-14.0) % Plt Count 455 H (150-450) x10^3/uL MPV 10.0 (7.5-11.0) fL Gran % 73.6 H (36.0-66.0) % Immature Gran % (Auto) 0.4 (0.00-0.4) % Nucleat RBC Rel Count 0.0 (0.00-0.1) % Eos # (Auto) 0.24 (0-0.5) x10^3/uL Immature Gran # (Auto) 0.04 H (0.00-0.03) x10^3u/L Absolute Lymphs (auto) 1.29 (1.0-4.6) x10^3/uL Absolute Monos (auto) 1.00 (0.0-1.3) x10^3/uL Absolute Nucleated RBC 0.00 (0.00-0.01) x10^3u/L Lymphocytes % 13.1 L (24.0-44.0) % Monocytes % 10.2 (0.0-12.0) % Eosinophils % 2.4 (0.00-5.0) % Basophils % 0.3 (0.0-0.4) % Absolute Granulocytes 7.23 H (1.4-6.9) x10^3/uL Basophils # 0.03 (0-0.4) x10^3/uL Sodium 141 (137-145) mmol/L Potassium 3.9 (3.5-5.1) mmol/L Chloride 104 (98-107) mmol/L Carbon Dioxide 30 (22-30) mmol/L Anion Gap 11.1 (5-15) MEQ/L BUN 29 H (9-20) mg/dL Creatinine 1.05 (0.66-1.25) mg/dL Estimated GFR > 60.0 ML/MIN Glucose 170 H (74-106) mg/dL Calcium 8.9 (8.4-10.2) mg/dL Total Bilirubin 0.50 (0.2-1.3) mg/dL AST 20 (17-59) U/L ALT 16 (0-50) U/L Alkaline Phosphatase 68 (38-126) U/L Serum Total Protein 7.6 (6.3-8.2) g/dL Albumin 3.6 (3.5-5.0) g/dL Amylase 72 (30-110) U/L Lipase 77 (23-300) U/L Urine Color Dark Yellow (Yellow) Urine Appearance Cloudy A (Clear) Urine pH 8.0 (4.6-8.0) Ur Specific [place] 1.020 (1.005-1.030) Urine Protein 100 A (Negative) Urine Glucose (UA) Negative (Negative) mg/dL Urine Ketones Negative (Negative) Urine Blood Trace (Negative) Urine Nitrite Negative (Negative) Urine Bilirubin Negative (Negative) Urine Urobilinogen 1.0 A (0.2) mg/dL Ur Leukocyte Esterase Large A (Negative) U Hyaline Cast (Auto) 3-5 A (0-2) /LPF Urine Microscopic RBC 3-5 (0-5) /HPF Urine Microscopic WBC >100 A (0-5) /HPF Ur Epithelial Cells None Seen (None Seen) /HPF Urine Bacteria None Seen (None Seen) /HPF Urine Culture Reflexed ORDERED SEPARATELY (NO) - Progress Progress: improved, pain not gone completely, re-examined Progress Note: 11/24/22 20:57 CAT scan of the abdomen and pelvis shows a hiatal hernia. There is 7 mm left mid ureteral calculus with marked hydroureter and marked hydronephrosis. 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 Counseled pt/family regarding: lab results, diagnosis, rad results Medical Desision Making - Independent Historian Additional History obtained from: Child - Discussion of managment Reviewed:: Test results, Need for additional workup Agreed on:: Treatment plan, need for follow-up - Social Determinants of Health Limited access to: transportation - Diagnostic Testing Diagnostic test were ordered, analyzed, and reviewed by me: Yes Radiological Interpretation: Reviewed by me, Teleradiologist Report - Risk of complications The pt has a high risk of morbidity or mortality based on: Decision regarding ho spitilization or escalation of hosp level of care - Departure Departure Disposition: Transfer Clinical Impression: Left ureteral calculus, Obstructive uropathy Condition: Stable Critical Care Time: No Referrals: AME DRISCOLL [Primary Care Provider] - Follow up/PCP as directed
[2022-11-24 19:10] LABS: Absolute Neutrophil Ct (ANC) 7.23 x10^3/uL (1.4-6.9); BASOPHIL % 0.3 % (0.0-0.4); Basophil (Absolute #) 0.03 x10^3/uL (0-0.4); Eosinophil % 2.4 % (0.00-5.0); Eosinophil (Absolute #) 0.24 x10^3/uL (0-0.5); Hematocrit 42.2 % (42-50); Hemoglobin 12.9 g/dL (12.5-18.0); IMMATURE GRAN # 0.04 x10^3u/L (0.00-0.03); IMMATURE GRAN % 0.4 % (0.00-0.4); Lymphocyte (Absolute #) 1.29 x10^3/uL (1.0-4.6); Lymphocytes % 13.1 % (24.0-44.0); Mean Corpuscular Hemoglobin 29.7 pg (26-32); Mean Corpuscular Hgb Concent. 30.6 g/dL (32-36); Monocytes % 10.2 % (0.0-12.0); Neutrophil % 73.6 % (36.0-66.0); Platelet Count 455 x10^3/uL (150-450); Red Blood Count 4.35 x10^6/uL (4.1-5.6); Red Cell Distribution Width 12.1 % (11.5-14.0); White Blood Count 9.8 x10^3/uL (4.0-10.5)
[2022-11-24 19:18] LABS: Bacteria None Seen /HPF (None Seen); Bilirubin Negative (Negative); Blood Trace (Negative); Epithelial Cells None Seen /HPF (None Seen); Glucose, Urine Negative (Negative); Ketones Negative (Negative); Leukocyte Esterase Large (Negative); Nitrite Negative (Negative); Protein,Urine Dip 100 (Negative); WBC >100 /HPF (0-5)
[2022-11-24 19:19] LABS: ADD URINE CULTURE? ORDERED SEPARATELY (NO); Appearance Cloudy (Clear)
[2022-11-24 19:23] LABS: ALBUMIN 3.6 g/dL (3.5-5.0); ALKALINE PHOSPHATASE 68 U/L (38-126); AMYLASE 72 U/L (30-110); ANION GAP 11.1 MEQ/L (5-15); BLOOD UREA NITROGEN 29 mg/dL (9-20); CHLORIDE 104 mmol/L (98-107); Calcium 8.9 mg/dL (8.4-10.2); Carbon Dioxide 30 mmol/L (22-30); Creatinine 1 1.05 mg/dL (0.66-1.25); EST GLOMERULAR FILTRATION RATE > 60.0 ML/MIN; Glucose 170 mg/dL (74-106); LIPASE 77 U/L (23-300); Potassium 3.9 mmol/L (3.5-5.1); SGOT/AST 20 U/L (17-59); SGPT/ALT 16 U/L (0-50); SODIUM 141 mmol/L (137-145); Total Protein 7.6 g/dL (6.3-8.2)
[2022-11-24] MEDS ORDERED: ROCEPHIN 1 Gm-D5w 50 ml Bag** 1 G/50 ML IVPB IV STA (20:50)
[2022-11-24] MEDS ORDERED: Levofloxacin 500 MG Tablet PO ONE (20:50)
[2022-11-24] MEDS ORDERED: TORAdol 30 mg Injection IV ONE (20:54)
[2022-11-24] MEDS ORDERED: TORAdol 30 mg Injection ONE (21:08)
[2022-11-24] MEDS ORDERED: Levofloxacin 500 MG Tablet ONE (21:08)
[2022-11-24] MEDS ORDERED: ROCEPHIN 1 Gm-D5w 50 ml Bag** 1 G/50 ML IVPB IV ONE (21:09)
[2022-11-24] MEDS ORDERED: Flomax 0.4 MG ONE (21:09)
[2022-11-24 21:28] VITALS: O2SAT 97
[2022-11-24 22:11] VITALS: BP 112/67; PULSE 85
--- NOTE | 2022-11-25 08:34 | XRAY ---
Indication: Constipation one month. Suprapubic pain. Multiple contiguous axial images obtained through the abdomen and pelvis without contrast. Comparison: None Lung bases demonstrates pulmonary emphysema with scattered fibrosis/scarring and mild bilateral posterior pleural plaquing. Heart not enlarged. Moderate-sized hiatal hernia with partial intrathoracic stomach. Noncontrasted stomach and bowel loops appear nonobstructed with normal appendix. Left mid ureter demonstrates 7 mm calculus, approximately L4 level. Proximal left ureter is markedly distended up to 2 cm and there is marked hydronephrosis with perinephric stranding favoring high-grade obstructive uropathy. Left urinary bladder demonstrates 4 cm bladder diverticulum with 9 mm calculus in the dependent portion. Incidental tiny hepatic/splenic calcified granulomas and cholecystectomy. No free fluid/air. Remaining liver, pancreas, spleen, adrenal glands, kidneys, ureters, and bladder are unremarkable for noncontrast exam. Heavy scattered vascular calcifications without AAA. Osseous structures intact with osteopenia, mild degenerative changes throughout the thoracolumbar spine, and mild degenerative changes both hips. Impression: 1. 7 mm left mid ureteral calculus producing high-grade obstruction as detailed. 2. 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 3. Chronic findings including pulmonary emphysema, pulmonary fibrosis/scarring, bibasilar calcified pleural plaquing, hiatal hernia with partially thoracic stomach, arteriosclerotic disease, chronic bony findings, and old granulomatous disease.
[2022-11-25] MEDS ORDERED: Flomax 0.4 MG PO ONE (20:55)
== END 2022-11-24 22:16 | disposition short-term general hospital (02) ==
LOC: ED 17:52
DX: N13.2 Hydronephrosis with renal and ureteral calculous obstruction (principal); K59.00 Constipation, unspecified; R10.9 Unspecified abdominal pain; R39.198 Other difficulties with micturition; E11.9 Type 2 diabetes mellitus without complications; Z28.310 Unvaccinated for COVID-19; Z59.82 Transportation insecurity
CPT/HCPCS: 36000; 36415; 74176; 80053; 81001; 82150; 83690; 85025; 87086; 96374; 99285; P9612; J0696; J1885; A9270-GY

== ENCOUNTER 2024-01-21 19:43 | Emergency (ER) | payer MEDICARE ==
--- NOTE | 2024-01-21 19:50 | ERPHSYRPT ---
- History of Present Illness Time Seen by Provider: 01/21/24 19:50 Source: patient, family Exam Limitations: no limitations Physician History: This is an 78-year-old white male patient who has had issues with difficulty urinating because of dysfunctioning urinary bladder. Patient had a left posterior hip subcutaneous bladder stimulator placed approximately 1 week ago. Patient has not been taking his antibiotics (cephalexin) or his pain medicine (tramadol). Patient states the pain did not start till yesterday and it is persisted today. Despite the pain, he has not been taking his medication as he is supposed to. Timing/Duration: day(s) (2) Context: other (Postsurgical site pain) Hip Pain Location: hip (L) (Posteriorly, subcutaneous implant/stimulator) Severity of Pain-Max: mild (To moderate) Severity of Pain-Current: mild (To moderate) Modifying Factors: Improves With: movement Symptoms prior to fall: other (No fall) Associated Symptoms: denies symptoms Allergies/Adverse Reactions: No Known Drug Allergies Allergy (Verified 11/24/22 18:27) Home Medications: Ibuprofen 600 mg PO TID PRN 01/21/24 [History] Phenazopyridine HCl 200 mg [Pyridium 200 mg] 200 mg PO TID 01/21/24 [History] Tramadol HCl 50 mg [Ultram 50 mg] 50 mg PO Q6HPRN PRN 01/21/24 [History] cephALEXin [Cephalexin] 500 mg PO BID 01/21/24 [History] Hx Tetanus, Diphtheria Vaccination/Date Given: Yes Hx Influenza Vaccination/Date Given: Yes Hx Pneumococcal Vaccination/Date Given: No Travel Risk - International Travel Have you traveled outside of the country in past 3 weeks: No - Emerging Infectious Disease Are you exhibiting symptoms associated with any current EIDs: No - Review of Systems Constitutional: No Symptoms Eyes: No Symptoms Ears, Nose, & Throat: No Symptoms Respiratory: No Symptoms Cardiac: No Symptoms Abdominal/Gastrointestinal: No Symptoms Genitourinary Symptoms: No Symptoms Musculoskeletal: No Symptoms Skin: Other (Tenderness in the subcutaneous space left posterior hip) Neurological: No Symptoms Psychological: No Symptoms Endocrine: No Symptoms Hematologic/Lymphatic: No Symptoms Immunological/Allergic: No Symptoms All Other Systems: Reviewed and Negative - Past Medical History Pertinent Past Medical History: Yes Neurological History: TIA ENT History: No Pertinent History Cardiac History: Other Respiratory History: Other Endocrine Medical History: Diabetes Type II Musculoskeletal History: No Pertinent History GI Medical History: No Pertinent History History: No Pertinent History Psycho-Social History: No Pertinent History Male Reproductive Disorders: No Pertinent History Other Medical History: BLACK LUNG; HX TIAS POSSIBLY, gall stones no longer diabetic - Past Surgical History Past Surgical History: Yes Neuro Surgical History: No Pertinent History Cardiac: Cardiac Catheterization Respiratory: Other Gastrointestinal: No Pertinent History Genitourinary: No Pertinent History Musculoskeletal: No Pertinent History Male Surgical History: No Pertinent History Other Surgical History: . Significant Family History: heart disease (mother) - Social History Smoking Status: Former smoker Exposure to second hand smoke: No Alcohol Use: None Drug Use: none Patient Lives Alone: No - Nursing Vital Signs Nursing Vital Signs: Initial Vital Signs Temperature 97.9 F 01/21/24 19:56 Pulse Rate 96 H 01/21/24 19:56 Respiratory Rate 22 01/21/24 19:56 Blood Pressure 165/79 01/21/24 19:56 O2 Sat by Pulse Oximetry 98 01/21/24 19:56 Pain Scale Pain Intensity [Left Posterior 4 Hip] Pain Intensity 2 - Physical Exam General Appearance: no apparent distress, alert, anxiety, thin Eye Exam: PERRL/EOMI, eyes nml inspection Ears, Nose, Throat Exam: other (Is very hard of hearing) Neck Exam: normal inspection, non-tender, supple, full range of motion Respiratory Exam: normal breath sounds, lungs clear, airway intact, No chest tenderness, No respiratory distress Cardiovascular Exam: regular rate/rhythm, normal heart sounds, normal peripheral pulses Gastrointestinal Exam: soft, No tenderness Back Exam: other (Surgical site left hip posteriorly. Subcutaneous stimulator unit in place without evidence of infection. The skin is intact. There is some left lateral ecchymosis present as expected postoperatively. 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, normal mood/affect Skin Exam: other Lymphatic Exam: No adenopathy (See above) SpO2 Interpretation: normal O2 Delivery: Room Air - Course Nursing assessment & vital signs reviewed: Yes Ordered Tests: Active Orders 24 hr Category Date Time Status PELVIS WITHOUT CONTRAST [CT] Stat Exams 01/21/24 20:31 Taken - Progress Progress: unchanged Progress Note: 01/21/24 20:38 My medical decision making and the assignment of low to moderate complexity of this patient's medical issue today is based on review the patient's past medical history, review the patient's medication list, review of patient drug allergy list, history presence and physical findings on examination. The workup in this patient includes CT scan of the patient's pelvis to evaluate the postoperative site for possible infection or other fluid collection. In addition, the radiologist will interpret whether or not the stimulator is in the appropriate position. 01/21/24 22:[address] scan of the pelvis without contrast was interpreted by the radiologist and I reviewed the impression. Impression states new left gluteal subcutaneous stimulator device in the appropriate position without complications. There is also evidence of rectal impaction. Counseled pt/family regarding: diagnosis, need for follow-up, rad results Medical Desision Making - Independent Historian Additional History obtained from: Family - Diagnostic Testing Diagnostic test were ordered, analyzed, and reviewed by me: Yes Radiological Interpretation: Reviewed by me, Teleradiologist Report - Risk of complications Low Risk: Low risk of morbidity from additional dx testing or treatment - Departure Departure Disposition: Home Clinical Impression: Constipation, Complication of urinary electronic stimulator device, Noncompliance with medication regimen Condition: Stable Critical Care Time: No Referrals: AME ULLOA [Primary Care Provider] - Follow up/PCP as directed Additional Instructions: Drink plenty of fluids. May use MiraLAX [id number] and glycerin suppositories to aid in relieving constipation. Take your medication as prescribed. Call the physician who placed your stimulator device on 12/24/2023. Make arrangement for follow-up appointment. Follow-up with that physician at that facility if there are any further questions or concerns about the device.
[2024-01-21 20:13] VITALS: TEMP 97.9
[2024-01-21 21:21] VITALS: O2SAT 99
[2024-01-21 22:03] VITALS: BP 150/69; PULSE 75; RESP 22
--- NOTE | 2024-01-22 08:25 | XRAY ---
Indication: Painful left posterior subcutaneous stimulator. Multiple contiguous axial images obtained through the pelvis only without contrast. Comparison: November 24, 2022 New left gluteal stimulator device producing beam artifact. Single stimulator lead courses midline and terminates left perirectal. No suspicious fluid or air collection. Visualized pelvic contents demonstrates new moderate rectal fecal impaction. No intrapelvic free fluid/air. Again extensive aortoiliac calcifications. Osseous structures intact again with osteopenia, mild degenerative changes visualized lumbar spine, and mild degenerative changes both hips. No ventral or inguinal hernias. Impression: 1. New left gluteal stimulator device with lead. No complications. 2. New moderate rectal fecal impaction. 3. Again chronic findings including arteriosclerotic disease and chronic bony findings.
== END 2024-01-21 22:20 | disposition home or self-care (01) ==
LOC: ED 19:43
DX: T83.84XA Pain due to genitourinary prosthetic devices, implants and grafts, initial encounter (principal); K59.00 Constipation, unspecified; Z91.148 Patient's other noncompliance with medication regimen for other reason; E11.9 Type 2 diabetes mellitus without complications; Z79.899 Other long term (current) drug therapy
CPT/HCPCS: 72192; 99283

== ENCOUNTER 2024-04-27 16:26 | Inpatient (IN) | payer BLACK LUNG, MEDICARE ==
[2024-04-27] MEDS ORDERED: Sodium Chloride 0.9% 500 ML 500 ML IV ONE (17:33)
[2024-04-27] MEDS: Sodium Chloride 0.9% 500 ML 500 ML IV ONE (17:37)
[2024-04-27] MEDS ORDERED: DUONEB 0.5-3 MG/3 ml Neb IH ONE (17:40)
[2024-04-27] MEDS: DUONEB 0.5-3 MG/3 ml Neb IH ONE (17:43)
[2024-04-27 18:06] LABS: Absolute Neutrophil Ct (ANC) 14.47 x10^3/uL (1.78-5.38); BASOPHIL % 0.2 % (0.2-1.2); Basophil (Absolute #) 0.03 x10^3/uL (0.01-0.08); Eosinophil % 0.1 % (0.8-7.0); Eosinophil (Absolute #) 0.01 x10^3/uL (0.04-0.54); Hematocrit 38.3 % (40.1-51.0); Hemoglobin 12.1 g/dL (13.7-17.5); IMMATURE GRAN # 0.24 x10^3u/L (0.001-0.031); IMMATURE GRAN % 1.5 % (0.001-0.429); Lymphocyte (Absolute #) 0.64 x10^3/uL (1.32-3.57); Lymphocytes % 3.9 % (21.8-53.1); Mean Cell Volume 94.1 fL (79.0-92.2); Mean Corpuscular Hemoglobin 29.7 pg (25.7-32.2); Mean Corpuscular Hgb Concent. 31.6 g/dL (32.3-36.5); Monocyte (Absolute #) 1.07 x10^3/uL (0.30-0.82); Monocytes % 6.5 % (5.3-12.2); Neutrophil % 87.8 % (34.0-67.9); Platelet Count 214 x10^3/uL (163-337); Red Blood Count 4.07 x10^6/uL (4.63-6.08); Red Cell Distribution Width 13.6 % (11.6-14.4); White Blood Count 16.5 x10^3/uL (4.23-9.07)
[2024-04-27 18:19] LABS: INFLUENZA A NEGATIVE (NEGATIVE); INFLUENZA B NEGATIVE (NEGATIVE); RESPIRATORY SYNCTIAL VIRUS NEGATIVE (NEGATIVE); SARS-CoV-2 Xpert Express NEGATIVE (NEGATIVE)
[2024-04-27 18:22] LABS: ALBUMIN 3.6 g/dL (3.5-5.0); ANION GAP 12.4 MEQ/L (5-15); BILIRUBIN,TOTAL 1.1 mg/dL (0.2-1.3); Calcium 9.1 mg/dL (8.4-10.2); Creatinine 1 1.24 mg/dL (0.66-1.25); EST GLOMERULAR FILTRATION RATE 58.8 ML/MIN; Potassium 4.3 mmol/L (3.5-5.1); Total Protein 7.1 g/dL (6.3-8.2)
[2024-04-27] MEDS ORDERED: ROCEPHIN 2 GM/100 ML NACL 2 GM/100 ML IVPB IV ONE (19:08)
[2024-04-27] MEDS: ROCEPHIN 2 GM/100 ML NACL 2 GM/100 ML IVPB IV ONE (19:09)
[2024-04-27] MEDS ORDERED: Zithromax 500 MG/ 250 ML NaCl Premix 500 MG/250 ML IVPB IV ONE (19:40)
--- NOTE | 2024-04-27 19:43 | ERPHSYRPT ---
- History of Present Illness Time Seen by Provider: 04/27/24 16:35 Source: patient, family Exam Limitations: no limitations Patient Subjective Stated Complaint: Weakness Triage Nursing Assessment: Patient brought into ED per w/c and transferred to bed per self. Patient A+O X 3. Initial O2 noted to bed 87% on room air. Oxygen applied per 2 liters at this time. Patient's skin pink, warm and dry. Patient complains of increased weakness for the past 3 days. Patient states he has not had an appetite for 3 days. Patient denies pain or discomfort, just states he feels weak. Lungs noted to be diminished throughout. Patient was recently exposed to Covid. Physician History: 78 years old male with history of COPD/black lung, coronary artery disease status post stenting, CVA with no residual weakness presented in the ER with complaint of 3 days history of generalized weakness fatigue and tiredness. Patient reports decreased oral intake, lack of appetite and also having some increased shortness of breath. Patient was seen yesterday at primary care office, was started on steroid as his oxygen was dropping in mid 80s. Patient does have oxygen at home which he uses only as needed especially at nighttime but now during the daytime while awake his oxygen is dropping at resting to mid 80s. On presentation his sats is 87%, placed on 2 L oxygen and improved in mid 90s. Patient denies any chest pain or palpitations but does have cough productive of clear to yellow sputum. Denies any abdominal pain nausea or vom iting. Does have a positive contact with COVID-19. Has no fever or chills. Allergies/Adverse Reactions: No Known Drug Allergies Allergy (Verified 04/27/24 16:36) Home Medications: Albuterol 2.5 mg/3 ml Neb [Proventil 2.5 mg/3 ml Neb] 2.5 mg IH Q6H PRN PRN 04/27/24 [History] Fluticasone/Umeclidin/Vilanter [Trelegy Ellipta 100-62.5-25] 1 each IH DAILY 04/27/24 [History] Metformin HCl 500 mg [Glucophage 500 MG] 1 tab PO BID 04/27/24 [History] Prednisone 10 mg [Deltasone 10 mg] 10 mg PO DAILY 04/27/24 [History] Hx Tetanus, Diphtheria Vaccination/Date Given: Yes Hx Influenza Vaccination/Date Given: No Hx Pneumococcal Vaccination/Date Given: No Immunizations Up to Date: Yes Travel Risk - International Travel Have you traveled outside of the country in past 3 weeks: No - Emerging Infectious Disease Are you exhibiting symptoms associated with any current EIDs: No - Review of Systems Constitutional: Fatigue, Weakness Eyes: No Symptoms Ears, Nose, & Throat: No Symptoms Respiratory: Cough, Dyspnea, Dyspnea on Exertion (MORENO), Wheezing Cardiac: No Symptoms Abdominal/Gastrointestinal: No Symptoms Genitourinary Symptoms: No Symptoms Musculoskeletal: Arthralgias Skin: No Symptoms Neurological: No Symptoms Hematologic/Lymphatic: No Symptoms Immunological/Allergic: No Symptoms - Past Medical History Pertinent Past Medical History: Yes Neurological History: TIA ENT History: No Pertinent History Cardiac History: Other Respiratory History: Other Endocrine Medical History: Diabetes Type II Musculoskeletal History: No Pertinent History GI Medical History: No Pertinent History History: No Pertinent History Psycho-Social History: No Pertinent History Male Reproductive Disorders: No Pertinent History Other Medical History: BLACK LUNG; HX TIAS POSSIBLY, gall stones no longer diabe tic - Past Surgical History Past Surgical History: Yes Neuro Surgical History: No Pertinent History Cardiac: Cardiac Catheterization Respiratory: Other Gastrointestinal: No Pertinent History Genitourinary: No Pertinent History Musculoskeletal: No Pertinent History Male Surgical History: No Pertinent History Other Surgical History: . Significant Family History: heart disease (mother) - Social History Smoking Status: Former smoker Exposure to second hand smoke: No Alcohol Use: None Drug Use: none Patient Lives Alone: No - Social Determinants of Health Will the patient participate in the screening: Yes Do you worry about a steady place to live?: No Do you have any problems with any of the following?: No known problems In the past 12 months,have you had to go without utilities?: No Transportation Issues: No Has anyone in your support network made you feel unsafe?: No Have you or anyone in your house had to go without enough: No - Nursing Vital Signs Nursing Vital Signs: Initial Vital Signs Temperature 98.7 F 04/27/24 16:38 Pulse Rate 122 H 04/27/24 16:38 Respiratory Rate 40 H 04/27/24 16:38 Blood Pressure 130/72 04/27/24 16:38 O2 Sat by Pulse Oximetry 87 L 04/27/24 16:38 Pain Scale Pain Intensity 0 - Physical Exam General Appearance: no apparent distress, alert Eye Exam: PERRL/EOMI Ears, Nose, Throat Exam: hearing grossly normal, normal ENT inspection, normal pharynx Neck Exam: normal inspection, non-tender, supple, full range of motion Respiratory Exam: diminished breath sounds, rhonchi, wheezing Cardiovascular/Chest Exam: normal heart sounds, tachycardia Abdominal/Gastrointestinal Exam: soft, normal bowel sounds, No tenderness Extremity Exam: non-tender, normal range of motion Neurologic Exam: alert, oriented x 3, cooperative, 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 II-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 nml as tested Skin Exam: normal color SpO2 Interpretation: hypoxic, O2 applied SpO2: 96 O2 Delivery: Nasal Cannula - Course EKG Interpreted by Me: RATE ([id number]), Sinus Tach, NORMAL AXIS, NORMAL INTERVALS, Non-specific ST Changes Ordered Tests: Active Orders 24 hr Category Date Time Status Bedrest ROUTINE Activity 04/27/24 21:00 Active Up With Assistance ROUTINE Activity 04/27/24 21:00 Active Call Admit Doctor for Orders ON ADMISSION Care 04/27/24 21:00 Active Communications Engineer STAT Care 04/27/24 17:28 Completed Code Status Order ROUTINE Care 04/27/24 21:00 Active EKG-ER Only STAT Care 04/27/24 17:28 Completed Fall Protocol Q1H Care 04/27/24 21:00 Active IV Insertion STAT Care 04/27/24 17:28 Completed Oxygen-ED Only Nasal Cannula 2 lpm Care 04/27/24 17:[address] in Observation ROUTINE Care 04/27/24 21:00 Active Telemetry q6h Care 04/27/24 21:00 Active CHEST 1 VIEW (PORTABLE) Stat Exams 04/27/24 17:28 Taken BLOOD CULTURE Stat Lab 04/27/24 17:50 Received CBC W DIFF Stat Lab 04/27/24 17:50 Completed CMP Stat Lab 04/27/24 17:50 Completed Lactic Acid Stat Lab 04/27/24 17:55 Completed MAGNESIUM Stat Lab 04/27/24 17:50 Completed PROCALCITONIN Stat Lab 04/27/24 17:50 Completed TROPONIN Q4H Lab 04/27/24 17:50 Completed TROPONIN Q4H Lab 04/27/24 21:15 Completed TROPONIN Q4H Lab 04/28/24 01:30 Ordered Oxygen Nasal Cannula 2 lpm RT 04/27/24 21:00 Active Pulse Oximetry CONTINUOUS RT 04/27/24 21:00 Active Respiratory Therapy Consult ONCE RT 04/27/24 21:00 Completed Transfer Order Routine Transfer 04/27/24 Completed Medication Summary Generic Name Dose Route Start Last Admin Trade Name Ankur PRN Reason Stop Dose Admin Albuterol/Ipratropium 3 ml 04/27/24 22:20 Ipratropium/Albuterol Sulfate 3 Ml Ampul.Neb 05/27/24 22:19 Q4HPRN PRN SHORTNESS OF BREATH/WHEEZING Aspirin 81 mg 04/28/24 10:00 Aspirin 81 Mg Tablet.Ec PO 05/28/24 09:59 DAILY ENRIQUE Budesonide 0.5 mg 04/28/24 10:00 Budesonide 0.5 Mg/2 Ml Ampul.Neb. 05/28/24 09:59 BID ENRIQUE Enoxaparin Sodium 40 mg 04/28/24 10:00 Enoxaparin Sodium 40 Mg/0.4 Ml Syringe SQ 05/28/24 09:59 DAILY ENRIQUE Ceftriaxone Sodium 1 gm in 100 mls @ 200 mls/hr 04/28/24 10:00 Rocephin 1 Gm / 100 Ml Nacl IV 05/28/24 09:59 Q24H10 ENRIQUE Azithromycin 500 mg in 250 mls @ 250 mls/hr 04/28/24 10:00 Zithromax 500 Mg/ 250 Ml Nacl Premix IV 05/28/24 09:59 Q24H10 [facility] Insulin Human Lispro 0 unit 04/27/24 22:42 Insulin Lispro 1 Unit SQ 05/27/24 22:41 UD PRN HYPERGLYCEMIA Methylprednisolone Sodium Succinate 40 mg 04/28/24 06:00 Methylprednisolone Sod Suc 40m 40 Mg/Ml Vial IV 05/28/24 05:59 Q8HT ENRIQUE Discontinued Medications Generic Name Dose Route Start Last Admin Trade Name Freq PRN Reason Stop Dose Admin Albuterol/Ipratropium 3 ml 04/27/24 17:28 04/27/24 17:43 Ipratropium/Albuterol Sulfate 3 Ml Ampul.Neb 04/27/24 17:29 3 ml STAT ONE Administration Albuterol/Ipratropium Confirm 04/27/24 17:40 Ipratropium/Albuterol Sulfate 3 Ml Ampul.Neb Administered 04/27/24 17:41 Dose 3 ml IH .STK-MED ONE Methylprednisolone Sodium 0 mg 04/27/24 20:12 04/27/24 20:23 Succinate 125 mg/ Sterile IV 04/27/24 20:13 125 mg Water 2 ml STAT ONE Administration Sodium Chloride 500 mls @ 500 mls/hr 04/27/24 17:29 04/27/24 18:42 Sodium Chloride 0.9% 500 Ml IV 04/27/24 18:28 Infused .Q1H ONE Infusion Sodium Chloride Confirm 04/27/24 17:33 Sodium Chloride 0.9% 500 Ml Administered 04/27/24 17:34 Dose 500 mls @ ud IV .STK-MED ONE Ceftriaxone Sodium 2 gm in 100 mls @ 200 mls/hr 04/27/24 19:06 04/27/24 19:39 Rocephin 2 Gm/100 Ml Nacl IV 04/27/24 19:35 Infused STAT ONE Infusion Azithromycin 500 mg in 250 mls @ 250 mls/hr 04/27/24 19:06 04/27/24 19:46 Zithromax 500 Mg/ 250 Ml Nacl Premix IV 04/27/24 20:05 250 mls/hr STAT STA 250 mls/hr Administration Ceftriaxone Sodium Confirm 04/27/24 19:08 Rocephin 2 Gm/100 Ml Nacl Administered 04/27/24 19:09 Dose 2 gm in 100 mls @ ud IV .STK-MED ONE Azithromycin Confirm 04/27/24 19:40 Zithromax 500 Mg/ 250 Ml Nacl Premix Administered 04/27/24 19:41 Dose 500 mg in 250 mls @ ud IV .STK-MED ONE Sodium Chloride 1,000 mls @ 100 mls/hr 04/27/24 20:00 04/27/24 19:59 Sodium Chloride 0.9% 1000 Ml IV 05/27/24 19:59 100 mls/hr .Q10H ENRIQUE Administration Sodium Chloride Confirm 04/27/24 19:57 Sodium Chloride 0.9% 1000 Ml Administered 04/27/24 19:58 Dose 1,000 mls @ ud .ROUTE .STK-MED ONE Methylprednisolone Sodium Succinate Confirm 04/27/24 20:19 Methylprednis Sod Succ 125 Mg/2 Ml Vial Administered 04/27/24 20:20 Dose 125 mg .ROUTE .STK-MED ONE Sterile Water Confirm 04/27/24 20:19 Water For Injection,Sterile 10 Ml Vial Administered 04/27/24 20:20 Dose 10 ml IJ .Trigger.io-Roomlr ONE Lab/Rad Data: Laboratory Result Diagrams 04/27/24 17:50 04/27/24 17:50 Laboratory Results 04/27/24 04/27/24 04/27/24 Range/Units 17:55 17:50 17:50 WBC (4.23-9.07) x10^3/uL RBC (4.63-6.08) x10^6/uL Hgb (13.7-17.5) g/dL Hct (40.1-51.0) % MCV (79.0-92.2) fL MCH (25.7-32.2) pg MCHC (32.3-36.5) g/dL RDW (11.6-14.4) % Plt Count (163-337) x10^3/uL MPV (9.4-12.4) fL Gran % (34.0-67.9) % Immature Gran % (Auto) (0.001-0.429) % Nucleat RBC Rel Count (0.00-0.2) % Eos # (Auto) (0.04-0.54) x10^3/uL Immature Gran # (Auto) (0.001-0.031) x10^3u/L Absolute Lymphs (auto) (1.32-3.57) x10^3/uL Absolute Monos (auto) (0.30-0.82) x10^3/uL Absolute Nucleated RBC (0.00-0.012) x10^3u/L Lymphocytes % (21.8-53.1) % Monocytes % (5.3-12.2) % Eosinophils % (0.8-7.0) % Basophils % (0.2-1.2) % Absolute Granulocytes (1.78-5.38) x10^3/uL Basophils # (0.01-0.08) x10^3/uL Sodium (135-145) mmol/L Potassium (3.5-5.1) mmol/L Chloride (98-107) mmol/L Carbon Dioxide (22-30) mmol/L Anion Gap (5-15) MEQ/L BUN (9-20) mg/dL Creatinine (0.66-1.25) mg/dL Estimated GFR ML/MIN Glucose (74-106) mg/dL Lactic Acid 1.5 (0.4-2.0) Calcium (8.4-10.2) mg/dL Magnesium (1.6-2.3) mg/dL Total Bilirubin (0.2-1.3) mg/dL AST (17-59) U/L ALT (0-50) U/L Alkaline Phosphatase (38-126) U/L Troponin I < 0.012 (0.000-0.033) ng/mL Serum Total Protein (6.3-8.2) g/dL Albumin (3.5-5.0) g/dL Procalcitonin 8.090 H* (0.030-0.080) ng/mL Influenza Type A Ag (NEGATIVE) Influenza Type B Ag (NEGATIVE) RSV (PCR) (NEGATIVE) SARS-CoV-2 (PCR) (NEGATIVE) 04/27/24 04/27/24 04/27/24 Range/Units 17:50 17:50 17:30 WBC 16.5 H (4.23-9.07) x10^3/uL RBC 4.07 L (4.63-6.08) x10^6/uL Hgb 12.1 L (13.7-17.5) g/dL Hct 38.3 L (40.1-51.0) % MCV 94.1 H (79.0-92.2) fL MCH 29.7 (25.7-32.2) pg MCHC 31.6 L (32.3-36.5) g/dL RDW 13.6 (11.6-14.4) % Plt Count 214 (163-337) x10^3/uL MPV 11.0 (9.4-12.4) fL Gran % 87.8 H (34.0-67.9) % Immature Gran % (Auto) 1.5 H (0.001-0.429) % Nucleat RBC Rel Count 0.0 (0.00-0.2) % Eos # (Auto) 0.01 L (0.04-0.54) x10^3/uL Immature Gran # (Auto) 0.24 H (0.001-0.031) x10^3u/L Absolute Lymphs (auto) 0.64 L (1.32-3.57) x10^3/uL Absolute Monos (auto) 1.07 H (0.30-0.82) x10^3/uL Absolute Nucleated RBC 0.00 (0.00-0.012) x10^3u/L Lymphocytes % 3.9 L (21.8-53.1) % Monocytes % 6.5 (5.3-12.2) % Eosinophils % 0.1 L (0.8-7.0) % Basophils % 0.2 (0.2-1.2) % Absolute Granulocytes 14.47 H (1.78-5.38) x10^3/uL Basophils # 0.03 (0.01-0.08) x10^3/uL Sodium 135 (135-145) mmol/L Potassium 4.3 (3.5-5.1) mmol/L Chloride 102 (98-107) mmol/L Carbon Dioxide 25 (22-30) mmol/L Anion Gap 12.4 (5-15) MEQ/L BUN 44 H (9-20) mg/dL Creatinine 1.24 (0.66-1.25) mg/dL Estimated GFR 58.8 ML/MIN Glucose 114 H (74-106) mg/dL Lactic Acid (0.4-2.0) Calcium 9.1 (8.4-10.2) mg/dL Magnesium 2.0 (1.6-2.3) mg/dL Total Bilirubin 1.10 (0.2-1.3) mg/dL AST 21 (17-59) U/L ALT 16 (0-50) U/L Alkaline Phosphatase 46 (38-126) U/L Troponin I (0.000-0.033) ng/mL Serum Total Protein 7.1 (6.3-8.2) g/dL Albumin 3.6 (3.5-5.0) g/dL Procalcitonin (0.030-0.080) ng/mL Influenza Type A Ag NEGATIVE (NEGATIVE) Influenza Type B Ag NEGATIVE (NEGATIVE) RSV (PCR) NEGATIVE (NEGATIVE) SARS-CoV-2 (PCR) NEGATIVE (NEGATIVE) - Progress Progress: improved, re-examined Air Movement: fair Progress Note: 04/27/24 20:11 78 years old is evaluated in the ER with generalized weakness fatigue tiredness, decreased oral intake along with cough and shortness of breath. Patient oxygen saturation was 87% on room air at resting, placed on 2 L oxygen and improved to mid 90s. Given DuoNeb and Solu-Medrol along with fluids, on reevaluation feeling better. Workup showed EKG with sinus tach no ST elevation and negative initial troponins. Chest x-ray bilateral airspace opacities and some chronic changes of COPD reviewed by me, official report is pending.. Has a white count of 16, lactate of 1.5 and procalcitonin of 8, given a dose of Rocephin and Zithromax. Patient also has a BUN of 44 with a baseline in 20s. Will continue with hydration. Has negative COVID-19 RSV and flu. I believe patient has COPD exacerbation with early developing pneumonia. Shared the results of workup with patient and family, recommended admission with frequent neb treatments, steroids and antibiotics. Discussed with hospitalist Dr. Medrano, reviewed history, workup and agreed with admission. Blood Culture(s) Obtained: Yes Antibiotics given: Yes Discussed with Dr.: Other (Dr. Stanley hospitalist) Will see patient in: hospital (observation) Counseled pt/family regarding: lab results, diagnosis, rad results Medical Desision Making - Independent Historian Additional History obtained from: Child - Discussion of managment Care discussed with:: hospitalist Reviewed:: Test results Agreed on:: Treatment plan, place in obs Will see patient: in hospital - Diagnostic Testing Diagnostic test were ordered, analyzed, and reviewed by me: Yes Radiological Interpretation: Interpreted by me, Reviewed by me - Risk of complications The pt has a mod risk of morbidity or mortality based on: Need for prescription drug management The pt has a high risk of morbidity or mortality based on: Decision regarding hospitilization or escalation of hosp level of care - Departure Departure Disposition: Observation Clinical Impression: COPD exacerbation, Respiratory failure, Dehydration, Generalized weakness Condition: Stable Critical Care Time: No
[2024-04-27] MEDS: Zithromax 500 MG/ 250 ML NaCl Premix 500 MG/250 ML IVPB IV STA (19:46)
[2024-04-27] MEDS ORDERED: Sodium Chloride 0.9% 1000 ML 1,000 ML ONE (19:57)
[2024-04-27] MEDS: Sodium Chloride 0.9% 1000 ML 1,000 ML IV SCH (19:59)
[2024-04-27] MEDS ORDERED: solu-MEDROL ONE (20:19)
[2024-04-27] MEDS ORDERED: Sterile H2O 10 ml IJ ONE (20:19)
[2024-04-27] MEDS: solu-MEDROL 125 MG, Sterile H2O 10 ml 2 ML IV ONE (20:23)
--- NOTE | 2024-04-27 22:30 | PCM.HP ---
History of Present Illness - Chief Complaint Chief Complaint: pneumonia, COPD exacerbation Date: 04/27/24 History of Present Illness: 78 years old very pleasant male with past medical history significant for COPD not on home oxygen, coronary artery disease status post stent, prior history of stroke without residual deficit, diabetes mellitus type 2, very hard to hear, lives with daughter who brought to ER for shortness of breath and desaturation. As per daughter patient was not doing good for last 3 days he is not having any p.o. intake feeling very weak and tired, he is remaining cold and complaining of chills all the time. He did have some productive cough with yellow phlegm. Daughter told me he is having chronic cough. Yesterday he was taken to PCP where his oxygen saturation was noted around 87% and he was prescribed steroids .in the ER the vital signs were stable patient was afebrile. As well as blood workup concerned it was remarkable with leukocytosis and high procalcitonin level. Troponin negative, EKG sinus tachy otherwise umimpressive .patient tested negative for influenza and COVID, x-ray showed bilateral opacities and chronic COPD changes.Patient was admitted for COPD exacerbation. - Review of Systems All Other Systems: Reviewed and Negative (14 systems reviewed and marked ve except mentioned in OSAGE) Medications & Allergies Home Medications: Home Medication List Albuterol 2.5 mg/3 ml Neb [Proventil 2.5 mg/3 ml Neb] 2.5 mg IH Q6H PRN PRN 04/27/24 [History Confirmed 04/27/24] Fluticasone/Umeclidin/Vilanter [Trelegy Ellipta 100-62.5-25] 1 each IH 04/27/24 [History] Metformin HCl 500 mg [Glucophage 500 MG] 1 tab PO BID 04/27/24 [History Confirmed 04/27/24] Prednisone 10 mg [Deltasone 10 mg] 10 mg PO DAILY 04/27/24 [History Con firmed 04/27/24] Allergies/Adverse Reactions: Allergies Allergy/AdvReac Type Severity Reaction Status Date / Time No Known Drug Allergies Allergy Verified 04/27/24 16:36 - Past Medical History Past Medical History: Yes Neurological History: Stroke, TIA ENT History: No Pertinent History Cardiac History: No Pertinent History Respiratory History: Other Endocrine Medical History: Diabetes Type II Musculoskelatal History: No Pertinent History GI Medical History: No Pertinent History History: No Pertinent History Pyscho-Social History: No Pertinent History Male Reproductive Disorders: No Pertinent History Comment: BLACK LUNG; HX TIAS POSSIBLY, gall stones no longer diabetic - Past Surgical History Past Surgical History: Yes Neuro Surgical History: No Pertinent History Cardiac History: Cardiac Catheterization Respiratory Surgery: Other GI Surgical History: No Pertinent History Genitourinary Surgical Hx: No Pertinent History Musculskeletal Surgical Hx: Orthopedic Surgery Male Surgical History: No Pertinent History Other Surgical History: lung biopsy, hand surgery Significant Family History: no pertinent family hx, heart disease (mother) - Social History Smoking Status: Former smoker Exposure to second hand smoke: No Alcohol: None Drug Use: none - Social Determinants of Health Will the patient participate in the screening: Yes Do you worry about a steady place to live?: No Do you have any problems with any of the following?: No known problems In the past 12 months,have you had to go without utilities?: No Have you or anyone in your house had to go without enough: No Transportation Issues: No Has anyone in your support network made you feel unsafe?: No Does the patient want assistance with any of the above?: No - Physical Exam Vital Signs: Vital Signs - 24 hr Temp Pulse Resp BP BP Pulse Ox 04/27/24 22:16 97 H 16 96 04/27/24 21:00 98.3 F 88 20 121/58 97 04/27/24 20:15 96 04/27/24 20:00 92 H 27 H 108/62 98 04/27/24 19:30 98 H 23 107/59 97 04/27/24 19:00 99 H 34 H 118/61 96 04/27/24 17:46 105 H 22 96 04/27/24 17:30 109 H 21 108/61 97 04/27/24 16:38 98.7 F 122 H 40 H 130/72 87 L Additional Findings: 04/27/24 22:28 HEENT OLd aged, average built , hard to hear on 2 liters oxygen through [place] NECK Supple,no thyromegaly, CVS S1+S2 + 0, no murmers RESP Bilateral equal air entry without Crepts heard GIT Soft non tender,non distended Skin, No rah, no Bruises LEGS No Edema PSYCH Normal,mood, judgement and insight NEURO AOX3, no focal deficit Results - Labs Lab/Micro Results: Lab Results-Last 24 Hours 04/27/24 04/27/24 04/27/24 Range/Units 17:30 17:50 17:50 WBC 16.5 H (4.23-9.07) x10^3/uL RBC 4.07 L (4.63-6.08) x10^6/uL Hgb 12.1 L (13.7-17.5) g/dL Hct 38.3 L (40.1-51.0) % MCV 94.1 H (79.0-92.2) fL MCH 29.7 (25.7-32.2) pg MCHC 31.6 L (32.3-36.5) g/dL RDW 13.6 (11.6-14.4) % Plt Count 214 (163-337) x10^3/uL MPV 11.0 (9.4-12.4) fL Gran % 87.8 H (34.0-67.9) % Immature Gran % (Auto) 1.5 H (0.001-0.429) % Nucleat RBC Rel Count 0.0 (0.00-0.2) % Eos # (Auto) 0.01 L (0.04-0.54) x10^3/uL Immature Gran # (Auto) 0.24 H (0.001-0.031) x10^3u/L Absolute Lymphs (auto) 0.64 L (1.32-3.57) x10^3/uL Absolute Monos (auto) 1.07 H (0.30-0.82) x10^3/uL Absolute Nucleated RBC 0.00 (0.00-0.012) x10^3u/L Lymphocytes % 3.9 L (21.8-53.1) % Monocytes % 6.5 (5.3-12.2) % Eosinophils % 0.1 L (0.8-7.0) % Basophils % 0.2 (0.2-1.2) % Absolute Granulocytes 14.47 H (1.78-5.38) x10^3/uL Basophils # 0.03 (0.01-0.08) x10^3/uL Sodium 135 (135-145) mmol/L Potassium 4.3 (3.5-5.1) mmol/L Chloride 102 (98-107) mmol/L Carbon Dioxide 25 (22-30) mmol/L Anion Gap 12.4 (5-15) MEQ/L BUN 44 H (9-20) mg/dL Creatinine 1.24 (0.66-1.25) mg/dL Estimated GFR 58.8 ML/MIN Glucose 114 H (74-106) mg/dL Lactic Acid (0.4-2.0) Calcium 9.1 (8.4-10.2) mg/dL Magnesium 2.0 (1.6-2.3) mg/dL Total Bilirubin 1.10 (0.2-1.3) mg/dL AST 21 (17-59) U/L ALT 16 (0-50) U/L Alkaline Phosphatase 46 (38-126) U/L Troponin I (0.000-0.033) ng/mL Serum Total Protein 7.1 (6.3-8.2) g/dL Albumin 3.6 (3.5-5.0) g/dL Procalcitonin (0.030-0.080) ng/mL Influenza Type A Ag NEGATIVE (NEGATIVE) Influenza Type B Ag NEGATIVE (NEGATIVE) RSV (PCR) NEGATIVE (NEGATIVE) SARS-CoV-2 (PCR) NEGATIVE (NEGATIVE) 04/27/24 04/27/24 04/27/24 Range/Units 17:50 17:50 17:55 WBC (4.23-9.07) x10^3/uL RBC (4.63-6.08) x10^6/uL Hgb (13.7-17.5) g/dL Hct (40.1-51.0) % MCV (79.0-92.2) fL MCH (25.7-32.2) pg MCHC (32.3-36.5) g/dL RDW (11.6-14.4) % Plt Count (163-337) x10^3/uL MPV (9.4-12.4) fL Gran % (34.0-67.9) % Immature Gran % (Auto) (0.001-0.429) % Nucleat RBC Rel Count (0.00-0.2) % Eos # (Auto) (0.04-0.54) x10^3/uL Immature Gran # (Auto) (0.001-0.031) x10^3u/L Absolute Lymphs (auto) (1.32-3.57) x10^3/uL Absolute Monos (auto) (0.30-0.82) x10^3/uL Absolute Nucleated RBC (0.00-0.012) x10^3u/L Lymphocytes % (21.8-53.1) % Monocytes % (5.3-12.2) % Eosinophils % (0.8-7.0) % Basophils % (0.2-1.2) % Absolute Granulocytes (1.78-5.38) x10^3/uL Basophils # (0.01-0.08) x10^3/uL Sodium (135-145) mmol/L Potassium (3.5-5.1) mmol/L Chloride (98-107) mmol/L Carbon Dioxide (22-30) mmol/L Anion Gap (5-15) MEQ/L BUN (9-20) mg/dL Creatinine (0.66-1.25) mg/dL Estimated GFR ML/MIN Glucose (74-106) mg/dL Lactic Acid 1.5 (0.4-2.0) Calcium (8.4-10.2) mg/dL Magnesium (1.6-2.3) mg/dL Total Bilirubin (0.2-1.3) mg/dL AST (17-59) U/L ALT (0-50) U/L Alkaline Phosphatase (38-126) U/L Troponin I < 0.012 (0.000-0.033) ng/mL Serum Total Protein (6.3-8.2) g/dL Albumin (3.5-5.0) g/dL Procalcitonin 8.090 H* (0.030-0.080) ng/mL Influenza Type A Ag (NEGATIVE) Influenza Type B Ag (NEGATIVE) RSV (PCR) (NEGATIVE) SARS-CoV-2 (PCR) (NEGATIVE) 04/27/24 Range/Units 21:15 WBC (4.23-9.07) x10^3/uL RBC (4.63-6.08) x10^6/uL Hgb (13.7-17.5) g/dL Hct (40.1-51.0) % MCV (79.0-92.2) fL MCH (25.7-32.2) pg MCHC (32.3-36.5) g/dL RDW (11.6-14.4) % Plt Count (163-337) x10^3/uL MPV (9.4-12.4) fL Gran % (34.0-67.9) % Immature Gran % (Auto) (0.001-0.429) % Nucleat RBC Rel Count (0.00-0.2) % Eos # (Auto) (0.04-0.54) x10^3/uL Immature Gran # (Auto) (0.001-0.031) x10^3u/L Absolute Lymphs (auto) (1.32-3.57) x10^3/uL Absolute Monos (auto) (0.30-0.82) x10^3/uL Absolute Nucleated RBC (0.00-0.012) x10^3u/L Lymphocytes % (21.8-53.1) % Monocytes % (5.3-12.2) % Eosinophils % (0.8-7.0) % Basophils % (0.2-1.2) % Absolute Granulocytes (1.78-5.38) x10^3/uL Basophils # (0.01-0.08) x10^3/uL Sodium (135-145) mmol/L Potassium (3.5-5.1) mmol/L Chloride (98-107) mmol/L Carbon Dioxide (22-30) mmol/L Anion Gap (5-15) MEQ/L BUN (9-20) mg/dL Creatinine (0.66-1.25) mg/dL Estimated GFR ML/MIN Glucose (74-106) mg/dL Lactic Acid (0.4-2.0) Calcium (8.4-10.2) mg/dL Magnesium (1.6-2.3) mg/dL Total Bilirubin (0.2-1.3) mg/dL AST (17-59) U/L ALT (0-50) U/L Alkaline Phosphatase (38-126) U/L Troponin I < 0.012 (0.000-0.033) ng/mL Serum Total Protein (6.3-8.2) g/dL Albumin (3.5-5.0) g/dL Procalcitonin (0.030-0.080) ng/mL Influenza Type A Ag (NEGATIVE) Influenza Type B Ag (NEGATIVE) RSV (PCR) (NEGATIVE) SARS-CoV-2 (PCR) (NEGATIVE) - Radiology Impressions Radiology Exams & Impressions: Radiology Procedures Category Date Time Status CHEST 1 VIEW (PORTABLE) Stat Exams 04/27/24 17:28 Taken - Other Procedures and Tests Respiratory Therapy 04/27/24 21:00 Oxygen Nasal Cannula 2 lpm Assessment/Plan (1) COPD exacerbation Current Visit: Yes Status: Acute Code(s): J44.1 - CHRONIC OBSTRUCTIVE PULMONARY DISEASE W (ACUTE) EXACERBATION (2) Generalized weakness Current Visit: Yes Status: Acute Code(s): R53.1 - WEAKNESS (3) Respiratory failure Current Visit: Yes Status: Acute Code(s): J96.90 - RESPIRATORY FAILURE, UNSP, UNSP W HYPOXIA OR HYPERCAPNIA (4) Noncompliance with medication regimen Current Visit: No Status: Acute Code(s): Z91.148 - PATIENT'S OTHER NONCOMPL WITH MEDS REGIMEN FOR OTHER REASON Telemedicine Encounter - Telemedicine Encounter Telemedicine Encounter: The entirety of this encounter was performed via Telemedicine This visit was performed using real-time audio and video connection between my location and thepatients locationwith the assistance of a surrogateat the patients location. Written or verbal consent was obtained from the patient/guardian to perform this visit using[facility] [employer] technology. Any patient questions regarding the telemedicine interaction were answered. Acute COPD exacerbation Will continue breathing therapy Continue steroids Will add Pulmicort Acute hypoxemic respiratory failure Secondary to underlying COPD versus pneumonia Patient was desaturating to 87% on room air He is currently on 2 L Pneumonia, community-acquired x-ray concerning for bilateral opacities Patient is having leukocytosis, high PCT Will check for strep pneumonia and Legionella Follow-up blood cultures Continue ceftriaxone and azithromycin Generalized weakness with chills and feeling cold Will rule out underlying Bactremia Continue antibiotics Keep following up culture PT OT evaluation Diabetes mellitus type 2 Will check HbA1c Keep holding metformin Continue sliding scale coverage Coronary artery disease Status post stent Patient is currently chest pain-free Troponin negative Prior history of stroke Without residual deficit Patient is not taking his aspirin and statins regularly Social determinants of health Noncompliance DVT prophylaxis SCD/Lovenox GI prophylaxis pantoprazole CODE STATUS full as medication with daughter Discharge Planning pending clinical stability. I have reviewed patient lab vitals and imaging detail question and concerns were addressed
[2024-04-27] MEDS ORDERED: HUMALOG SQ PRN (22:42)
[2024-04-28 02:48] LABS: Hematocrit 35.1 % (40.1-51.0); Hemoglobin 11.2 g/dL (13.7-17.5); Mean Cell Volume 93.4 fL (79.0-92.2); Mean Corpuscular Hemoglobin 29.8 pg (25.7-32.2); Mean Corpuscular Hgb Concent. 31.9 g/dL (32.3-36.5); Mean Platelet Volume 11.7 fL (9.4-12.4); Platelet Count 198 x10^3/uL (163-337); Red Blood Count 3.76 x10^6/uL (4.63-6.08); Red Cell Distribution Width 13.6 % (11.6-14.4); White Blood Count 9.9 x10^3/uL (4.23-9.07)
[2024-04-28 02:57] LABS: Calcium 8.8 mg/dL (8.4-10.2); Creatinine 1 1.03 mg/dL (0.66-1.25); EST GLOMERULAR FILTRATION RATE 73.4 ML/MIN; Potassium 4.4 mmol/L (3.5-5.1)
[2024-04-28] MEDS ORDERED: Sterile H2O 10 ml IJ ONE (05:04)
[2024-04-28] MEDS: PROTONIX 40 MG IV IV SCH (05:08)
[2024-04-28] MEDS: solu-MEDROL IV SCH (05:09)
--- NOTE | 2024-04-28 05:35 | PCM.NOTE ---
Date and Time: 04/28/24529 Subjective Assessment: HPI: 78 years old very pleasant male with past medical history significant for COPD not on home oxygen, coronary artery disease status post stent, prior history of stroke without residual deficit, diabetes mellitus type 2, very hard to hear, lives with daughter who brought to ER for shortness of breath and desaturation. As per daughter patient was not doing good for last 3 days he is not having any p.o. intake feeling very weak and tired, he is remaining cold and complaining of chills all the time. He did have some productive cough with yellow phlegm. Daughter told me he is having chronic cough. Yesterday he was taken to PCP where his oxygen saturation was noted around 87% and he was prescribed steroids .in the ER the vital signs were stable patient was afebrile. As well as blood workup concerned it was remarkable with leukocytosis and high procalcitonin level. Troponin negative, EKG sinus tachy otherwise umimpressive .patient tested negative for influenza and COVID, x-ray showed bilateral opacities and chronic COPD changes.Patient was admitted for COPD exacerbation. 04/28/24: Met with patient bedside. Dyspnea improved. On 4L oxygen. Bilateral fine crackles heard on auscultation. No wheezing. Endorses dry cough with no sputum production. Will add mucinex. Patient is RA at baseline. Continue abx/steroid. - Review of Systems Constitutional: No Symptoms Eyes: No Symptoms, Foreign Body Sensation Ears, Nose, & Throat: Other (KOOTENAI) Respiratory: Cough, Short Of Breath Cardiac: No Symptoms Abdominal/Gastrointestinal: No Symptoms Genitourinary Symptoms: No Symptoms Musculoskeletal: No Symptoms Skin: No Symptoms Neurological: No Symptoms Psychological: No Symptoms Endocrine: No Symptoms Hematologic/Lymphatic: No Symptoms Immunological/Allergic: No Symptoms Objective Exam General Appearance: no apparent distress Neurologic Exam: alert, oriented x 3, cooperative Skin Exam: normal color Eye Exam: PERRL Ears, Nose, Throat Exam: other (KOOTENAI) Neck Exam: normal inspection Respiratory Exam: crackles/rales Cardiovascular Exam: regular rate/rhythm, normal heart sounds Gastrointestinal/Abdomen Exam: soft, normal bowel sounds Extremity Exam: normal inspection Back Exam: normal inspection Objective Data Vital Signs: Vital Signs - 24 hr Temp Pulse Resp BP BP Pulse Ox 04/28/24 03:49 81 20 134/69 95 04/28/24 00:00 98.3 F 97 H 121/58 96 04/27/24 23:59 96 04/27/24 22:16 97 H 16 96 04/27/24 21:00 98.3 F 88 20 121/58 97 04/27/24 20:00 92 H 27 H 108/62 98 04/27/24 19:30 98 H 23 107/59 97 04/27/24 19:00 99 H 34 H 118/61 96 04/27/24 17:46 105 H 22 96 04/27/24 17:30 109 H 21 108/61 97 04/27/24 16:38 98.7 F 122 H 40 H 130/72 87 L Pain Assessment - Last Documented Pain Intensity 0 Intake and Output: Intake & Output 04/25/24 04/26/24 04/27/24 04/28/24 11:59 11:59 11:59 11:59 Intake Total 240 Output Total 125 Balance 115 Weight 58.3 kg Lab Results: Lab Results-Last 24 Hours 04/27/24 04/27/24 04/27/24 Range/Units 17:30 17:50 17:50 WBC 16.5 H (4.23-9.07) x10^3/uL RBC 4.07 L (4.63-6.08) x10^6/uL Hgb 12.1 L (13.7-17.5) g/dL Hct 38.3 L (40.1-51.0) % MCV 94.1 H (79.0-92.2) fL MCH 29.7 (25.7-32.2) pg MCHC 31.6 L (32.3-36.5) g/dL RDW 13.6 (11.6-14.4) % Plt Count 214 (163-337) x10^3/uL MPV 11.0 (9.4-12.4) fL Gran % 87.8 H (34.0-67.9) % Immature Gran % (Auto) 1.5 H (0.001-0.429) % Nucleat RBC Rel Count 0.0 (0.00-0.2) % Eos # (Auto) 0.01 L (0.04-0.54) x10^3/uL Immature Gran # (Auto) 0.24 H (0.001-0.031) x10^3u/L Absolute Lymphs (auto) 0.64 L (1.32-3.57) x10^3/uL Absolute Monos (auto) 1.07 H (0.30-0.82) x10^3/uL Absolute Nucleated RBC 0.00 (0.00-0.012) x10^3u/L Lymphocytes % 3.9 L (21.8-53.1) % Monocytes % 6.5 (5.3-12.2) % Eosinophils % 0.1 L (0.8-7.0) % Basophils % 0.2 (0.2-1.2) % Absolute Granulocytes 14.47 H (1.78-5.38) x10^3/uL Basophils # 0.03 (0.01-0.08) x10^3/uL Sodium 135 (135-145) mmol/L Potassium 4.3 (3.5-5.1) mmol/L Chloride 102 (98-107) mmol/L Carbon Dioxide 25 (22-30) mmol/L Anion Gap 12.4 (5-15) MEQ/L BUN 44 H (9-20) mg/dL Creatinine 1.24 (0.66-1.25) mg/dL Estimated GFR 58.8 ML/MIN Glucose 114 H (74-106) mg/dL Lactic Acid (0.4-2.0) Calcium 9.1 (8.4-10.2) mg/dL Magnesium 2.0 (1.6-2.3) mg/dL Total Bilirubin 1.10 (0.2-1.3) mg/dL AST 21 (17-59) U/L ALT 16 (0-50) U/L Alkaline Phosphatase 46 (38-126) U/L Troponin I (0.000-0.033) ng/mL Serum Total Protein 7.1 (6.3-8.2) g/dL Albumin 3.6 (3.5-5.0) g/dL Procalcitonin (0.030-0.080) ng/mL Influenza Type A Ag NEGATIVE (NEGATIVE) Influenza Type B Ag NEGATIVE (NEGATIVE) RSV (PCR) NEGATIVE (NEGATIVE) SARS-CoV-2 (PCR) NEGATIVE (NEGATIVE) 04/27/24 04/27/24 04/27/24 Range/Units 17:50 17:50 17:55 WBC (4.23-9.07) x10^3/uL RBC (4.63-6.08) x10^6/uL Hgb (13.7-17.5) g/dL Hct (40.1-51.0) % MCV (79.0-92.2) fL MCH (25.7-32.2) pg MCHC (32.3-36.5) g/dL RDW (11.6-14.4) % Plt Count (163-337) x10^3/uL MPV (9.4-12.4) fL Gran % (34.0-67.9) % Immature Gran % (Auto) (0.001-0.429) % Nucleat RBC Rel Count (0.00-0.2) % Eos # (Auto) (0.04-0.54) x10^3/uL Immature Gran # (Auto) (0.001-0.031) x10^3u/L Absolute Lymphs (auto) (1.32-3.57) x10^3/uL Absolute Monos (auto) (0.30-0.82) x10^3/uL Absolute Nucleated RBC (0.00-0.012) x10^3u/L Lymphocytes % (21.8-53.1) % Monocytes % (5.3-12.2) % Eosinophils % (0.8-7.0) % Basophils % (0.2-1.2) % Absolute Granulocytes (1.78-5.38) x10^3/uL Basophils # (0.01-0.08) x10^3/uL Sodium (135-145) mmol/L Potassium (3.5-5.1) mmol/L Chloride (98-107) mmol/L Carbon Dioxide (22-30) mmol/L Anion Gap (5-15) MEQ/L BUN (9-20) mg/dL Creatinine (0.66-1.25) mg/dL Estimated GFR ML/MIN Glucose (74-106) mg/dL Lactic Acid 1.5 (0.4-2.0) Calcium (8.4-10.2) mg/dL Magnesium (1.6-2.3) mg/dL Total Bilirubin (0.2-1.3) mg/dL AST (17-59) U/L ALT (0-50) U/L Alkaline Phosphatase (38-126) U/L Troponin I < 0.012 (0.000-0.033) ng/mL Serum Total Protein (6.3-8.2) g/dL Albumin (3.5-5.0) g/dL Procalcitonin 8.090 H* (0.030-0.080) ng/mL Influenza Type A Ag (NEGATIVE) Influenza Type B Ag (NEGATIVE) RSV (PCR) (NEGATIVE) SARS-CoV-2 (PCR) (NEGATIVE) 04/27/24 04/28/24 04/28/24 Range/Units 21:15 02:15 02:15 WBC 9.9 H (4.23-9.07) x10^3/uL RBC 3.76 L (4.63-6.08) x10^6/uL Hgb 11.2 L (13.7-17.5) g/dL Hct 35.1 L (40.1-51.0) % MCV 93.4 H (79.0-92.2) fL MCH 29.8 (25.7-32.2) pg MCHC 31.9 L (32.3-36.5) g/dL RDW 13.6 (11.6-14.4) % Plt Count 198 (163-337) x10^3/uL MPV 11.7 (9.4-12.4) fL Gran % (34.0-67.9) % Immature Gran % (Auto) (0.001-0.429) % Nucleat RBC Rel Count (0.00-0.2) % Eos # (Auto) (0.04-0.54) x10^3/uL Immature Gran # (Auto) (0.001-0.031) x10^3u/L Absolute Lymphs (auto) (1.32-3.57) x10^3/uL Absolute Monos (auto) (0.30-0.82) x10^3/uL Absolute Nucleated RBC (0.00-0.012) x10^3u/L Lymphocytes % (21.8-53.1) % Monocytes % (5.3-12.2) % Eosinophils % (0.8-7.0) % Basophils % (0.2-1.2) % Absolute Granulocytes (1.78-5.38) x10^3/uL Basophils # (0.01-0.08) x10^3/uL Sodium (135-145) mmol/L Potassium (3.5-5.1) mmol/L Chloride (98-107) mmol/L Carbon Dioxide (22-30) mmol/L Anion Gap (5-15) MEQ/L BUN (9-20) mg/dL Creatinine (0.66-1.25) mg/dL Estimated GFR ML/MIN Glucose (74-106) mg/dL Lactic Acid (0.4-2.0) Calcium (8.4-10.2) mg/dL Magnesium (1.6-2.3) mg/dL Total Bilirubin (0.2-1.3) mg/dL AST (17-59) U/L ALT (0-50) U/L Alkaline Phosphatase (38-126) U/L Troponin I < 0.012 < 0.012 (0.000-0.033) ng/mL Serum Total Protein (6.3-8.2) g/dL Albumin (3.5-5.0) g/dL Procalcitonin (0.030-0.080) ng/mL Influenza Type A Ag (NEGATIVE) Influenza Type B Ag (NEGATIVE) RSV (PCR) (NEGATIVE) SARS-CoV-2 (PCR) (NEGATIVE) 04/28/24 Range/Units 02:15 WBC (4.23-9.07) x10^3/uL RBC (4.63-6.08) x10^6/uL Hgb (13.7-17.5) g/dL Hct (40.1-51.0) % MCV (79.0-92.2) fL MCH (25.7-32.2) pg MCHC (32.3-36.5) g/dL RDW (11.6-14.4) % Plt Count (163-337) x10^3/uL MPV (9.4-12.4) fL Gran % (34.0-67.9) % Immature Gran % (Auto) (0.001-0.429) % Nucleat RBC Rel Count (0.00-0.2) % Eos # (Auto) (0.04-0.54) x10^3/uL Immature Gran # (Auto) (0.001-0.031) x10^3u/L Absolute Lymphs (auto) (1.32-3.57) x10^3/uL Absolute Monos (auto) (0.30-0.82) x10^3/uL Absolute Nucleated RBC (0.00-0.012) x10^3u/L Lymphocytes % (21.8-53.1) % Monocytes % (5.3-12.2) % Eosinophils % (0.8-7.0) % Basophils % (0.2-1.2) % Absolute Granulocytes (1.78-5.38) x10^3/uL Basophils # (0.01-0.08) x10^3/uL Sodium 135 (135-145) mmol/L Potassium 4.4 (3.5-5.1) mmol/L Chloride 105 (98-107) mmol/L Carbon Dioxide 22 (22-30) mmol/L Anion Gap 13.0 (5-15) MEQ/L BUN 39 H (9-20) mg/dL Creatinine 1.03 (0.66-1.25) mg/dL Estimated GFR 73.4 ML/MIN Glucose 241 H (74-106) mg/dL Lactic Acid (0.4-2.0) Calcium 8.8 (8.4-10.2) mg/dL Magnesium (1.6-2.3) mg/dL Total Bilirubin (0.2-1.3) mg/dL AST (17-59) U/L ALT (0-50) U/L Alkaline Phosphatase (38-126) U/L Troponin I (0.000-0.033) ng/mL Serum Total Protein (6.3-8.2) g/dL Albumin (3.5-5.0) g/dL Procalcitonin (0.030-0.080) ng/mL Influenza Type A Ag (NEGATIVE) Influenza Type B Ag (NEGATIVE) RSV (PCR) (NEGATIVE) SARS-CoV-2 (PCR) (NEGATIVE) Radiology Exams: Radiology Procedures Category Date Time Status CHEST 1 VIEW (PORTABLE) Stat Exams 04/27/24 17:28 Taken Assessment/Plan (1) Acute respiratory failure with hypoxia Current Visit: Yes Status: Acute Assessment & Plan: -secondary to pneumonia/ copd exacerbation -Supplemental oxygen with spo2 goal > 91% - currently at 2L RA at baseline -Sats at 87% on arrival -RT eval -Nebs/INH -steroids -ceftriaxone/azithromycin -WBC improving 9.9<16.5 -bcult pending -Procal elevated at 8.090 -Viral resp panel negative -add mucinex Code(s): J96.01 - ACUTE RESPIRATORY FAILURE WITH HYPOXIA (2) COPD exacerbation Current Visit: Yes Status: Acute Assessment & Plan: -see ARF for plan Code(s): J44.1 - CHRONIC OBSTRUCTIVE PULMONARY DISEASE W (ACUTE) EXACERBATION (3) Pneumonia Current Visit: Yes Status: Acute Assessment & Plan: -continue ceftriaxone/azithromycin/ solumedrol - see plan for arf Code(s): J18.9 - PNEUMONIA, UNSPECIFIED ORGANISM (4) Weakness Current Visit: Yes Status: Acute Assessment & Plan: -Most likely secondary to infection -treat underlying infection -PT/OT eval Code(s): R53.1 - WEAKNESS (5) Diabetes mellitus Current Visit: Yes Status: Acute Assessment & Plan: -ADA diet -SSI -A1c pending Code(s): E11.9 - TYPE 2 DIABETES MELLITUS WITHOUT COMPLICATIONS (6) CAD (coronary artery disease) Current Visit: Yes Status: Acute Assessment & Plan: -s/p stent -continue home meds -negative trop -denies CP Code(s): I25.10 - ATHSCL HEART DISEASE OF [place] CORONARY ARTERY W/O ANG PCTRS (7) History of stroke Current Visit: Yes Status: Acute Assessment & Plan: Without residual deficit -Patient is not taking his aspirin and statins regularly Code(s): Z86.73 - PRSNL HX OF TIA (TIA), AND CEREB INFRC W/O RESID DEFICITS (8) Noncompliance Current Visit: Yes Status: Acute Assessment & Plan: -with home meds DVT prophylaxis SCD/Lovenox GI prophylaxis pantoprazole CODE STATUS full as medication with daughter Code(s): Z91.199 - PT NONCOMPL WITH OTHER MED TRTMT AND REGIMEN D/T UNSP REASON
[2024-04-28] MEDS: PULMICORT 0.5 MG/2 ML RESPULES IH SCH ×2 (07:16→18:41)
[2024-04-28] MEDS: DUONEB 0.5-3 MG/3 ml Neb IH PRN (07:16)
[2024-04-28] MEDS: HUMALOG SQ PRN (08:26)
--- NOTE | 2024-04-28 08:39 | XRAY ---
Indication: Short of breath. Comparison: November 05, 2022 Portable chest demonstrates new right mid to lower lung hazy airspace disease without consolidation/large effusion. Remaining chest unchanged with CT proven chronic features including right lung postsurgical changes with scattered fibrosis/scarring, biapical pleural thickening, and benign bilateral upper lobe calcified/noncalcified nodularities. Bony thorax intact again with degenerative changes.
[2024-04-28] MEDS: ECOTRIN 81 MG PO SCH (09:32)
[2024-04-28] MEDS: ENOXAPARIN SODIUM SQ SCH (09:32)
[2024-04-28] MEDS: Mucinex 600MG ER Tabs PO SCH (11:56)
[2024-04-28] MEDS: Sterile H2O 10 ml IJ PRN (14:59)
[2024-04-28] MEDS: ROCEPHIN 1 GM / 100 ML NaCl 1 GM/100 ML IVPB IV SCH (18:25)
[2024-04-28] MEDS: Zithromax 500 MG/ 250 ML NaCl Premix 500 MG/250 ML IVPB IV SCH (19:08)
--- NOTE | 2024-04-29 05:07 | PCM.NOTE ---
Date and Time: 04/29/24 0506 Subjective Assessment: HPI: 78 years old very pleasant male with past medical history significant for COPD not on home oxygen, coronary artery disease status post stent, prior history of stroke without residual deficit, diabetes mellitus type 2, very hard to hear, lives with daughter who brought to ER for shortness of breath and desaturation. As per daughter patient was not doing good for last 3 days he is not having any p.o. intake feeling very weak and tired, he is remaining cold and complaining of chills all the time. He did have some productive cough with yellow phlegm. Daughter told me he is having chronic cough. Yesterday he was taken to PCP where his oxygen saturation was noted around 87% and he was prescribed steroids .in the ER the vital signs were stable patient was afebrile. As well as blood workup concerned it was remarkable with leukocytosis and high procalcitonin level. Troponin negative, EKG sinus tachy otherwise umimpressive .patient tested negative for influenza and COVID, x-ray showed bilateral opacities and chronic COPD changes.Patient was admitted for COPD exacerbation. 04/28/24: Met with patient bedside. Dyspnea improved. On 4L oxygen. Bilateral fine crackles heard on auscultation. No wheezing. Endorses dry cough with no sputum production. Will add mucinex. Patient is RA at baseline. Continue abx/steroid. 04/29/24: Met with patient bedside. Dyspnea improved. Endorses continued weakness. Able to titrate to 1L of oxygen, RA at baseline. Will continue abx today, can start oral steroids. Possible discharge tomorrow. - Review of Systems Constitutional: No Symptoms Eyes: No Symptoms Ears, Nose, & Throat: No Symptoms Respiratory: Cough, Short Of Breath Cardiac: No Symptoms Abdominal/Gastrointestinal: No Symptoms Genitourinary Symptoms: No Symptoms Musculoskeletal: No Symptoms Skin: No Symptoms Neurological: No Symptoms Psychological: No Symptoms Endocrine: No Symptoms Hematologic/Lymphatic: No Symptoms Immunological/Allergic: No Symptoms Objective Exam General Appearance: no apparent distress Neurologic Exam: alert, oriented x 3, cooperative Skin Exam: normal color Eye Exam: PERRL Ears, Nose, Throat Exam: normal ENT inspection Neck Exam: normal inspection Respiratory Exam: crackles/rales Cardiovascular Exam: regular rate/rhythm, normal heart sounds Gastrointestinal/Abdomen Exam: soft, normal bowel sounds Extremity Exam: normal inspection Back Exam: normal inspection Male Genitalia Exam: deferred Rectal Exam: deferred Objective Data Vital Signs: Vital Signs - 24 hr Temp Pulse Resp BP Pulse Ox 04/29/24 04:00 97.1 F 67 18 121/58 95 04/28/24 23:34 97.3 F 75 18 123/60 97 04/28/24 19:13 97.2 F 83 22 118/57 97 04/28/24 18:41 88 18 97 04/28/24 16:00 97.5 F 91 H 18 140/68 96 04/28/24 11:52 97.9 F 81 20 135/67 95 04/28/24 07:50 97.3 F 67 19 136/84 95 04/28/24 07:19 80 18 95 Pain Assessment - Last Documented Pain Intensity 0 Intake and Output: Intake & Output 04/26/24 04/27/24 04/28/24 04/29/24 11:59 11:59 11:59 11:59 Intake Total 620 1060 Output Total 125 Balance 495 1060 Weight 58.3 kg Lab Results: Lab Results-Last 24 Hours 04/28/24 04/28/24 04/28/24 Range/Units 06:54 11:41 16:35 POC Glucometer 213 H 252 H 228 H (74 to 106) mg/dL 04/28/24 Range/Units 20:54 POC Glucometer 268 H (74 to 106) mg/dL Radiology Exams: Radiology Procedures Category Date Time Status CHEST 1 VIEW (PORTABLE) Stat Exams 04/27/24 17:28 Completed Assessment/Plan (1) Acute respiratory failure with hypoxia Current Visit: Yes Status: Acute Assessment & Plan: -secondary to pneumonia/ copd exacerbation -Supplemental oxygen with spo2 goal > 91% - currently at 2L RA at baseline -Sats at 87% on arrival -RT eval -Nebs/INH -steroids -ceftriaxone/azithromycin -WBC improving 9.9<16.5 -bcult pending -Procal elevated at 8.090 -Viral resp panel negative -add mucinex 04/29: -Aeration improved -on 1L oxygen - Home qualify today -Change steroids to oral prednisone -Continue ceftriaxone/azithromycin -repeat procal -bcult ngtd Code(s): J96.01 - ACUTE RESPIRATORY FAILURE WITH HYPOXIA (2) COPD exacerbation Current Visit: Yes Status: Acute Assessment & Plan: -see ARF for plan Code(s): J44.1 - CHRONIC OBSTRUCTIVE PULMONARY DISEASE W (ACUTE) EXACERBATION (3) Pneumonia Current Visit: Yes Status: Acute Assessment & Plan: -continue ceftriaxone/azithromycin/ solumedrol - see plan for arf Code(s): J18.9 - PNEUMONIA, UNSPECIFIED ORGANISM (4) Weakness Current Visit: Yes Status: Acute Assessment & Plan: -Most likely secondary to infection -treat underlying infection -PT/OT eval 04/29: -improving - walk pt TID Code(s): R53.1 - WEAKNESS (5) Diabetes mellitus Current Visit: Yes Status: Acute Assessment & Plan: -ADA diet -SSI -A1c pending Code(s): E11.9 - TYPE 2 DIABETES MELLITUS WITHOUT COMPLICATIONS (6) CAD (coronary artery disease) Current Visit: Yes Status: Acute Assessment & Plan: -s/p stent -continue home meds -negative trop -denies CP Code(s): I25.10 - ATHSCL HEART DISEASE OF [place] CORONARY ARTERY W/O ANG PCTRS (7) History of stroke Current Visit: Yes Status: Acute Assessment & Plan: Without residual deficit -Patient is not taking his aspirin and statins regularly Code(s): Z86.73 - PRSNL HX OF TIA (TIA), AND CEREB INFRC W/O RESID DEFICITS (8) Noncompliance Current Visit: Yes Status: Acute Assessment & Plan: -with home meds DVT prophylaxis SCD/Lovenox GI prophylaxis pantoprazole Code(s): J96.01 - ACUTE RESPIRATORY FAILURE WITH HYPOXIA (2) COPD exacerbation Current Visit: Yes Status: Acute Code(s): J44.1 - CHRONIC OBSTRUCTIVE PULMONARY DISEASE W (ACUTE) EXACERBATION (3) Pneumonia Current Visit: Yes Status: Acute Code(s): J18.9 - PNEUMONIA, UNSPECIFIED ORGANISM (4) Weakness Current Visit: Yes Status: Acute Code(s): R53.1 - WEAKNESS (5) Diabetes mellitus Current Visit: Yes Status: Acute Code(s): E11.9 - TYPE 2 DIABETES MELLITUS WITHOUT COMPLICATIONS (6) CAD (coronary artery disease) Current Visit: Yes Status: Acute Code(s): I25.10 - ATHSCL HEART DISEASE OF [place] CORONARY ARTERY W/O ANG PCTRS (7) History of stroke Current Visit: Yes Status: Acute Code(s): Z86.73 - PRSNL HX OF TIA (TIA), AND CEREB INFRC W/O RESID DEFICITS (8) Noncompliance Current Visit: Yes Status: Acute Code(s): Z91.199 - PT NONCOMPL WITH OTHER MED TRTMT AND REGIMEN D/T UNSP REASON
[2024-04-29 08:15] LABS: Absolute Neutrophil Ct (ANC) 14.66 x10^3/uL (1.78-5.38); BASOPHIL % 0.1 % (0.2-1.2); Basophil (Absolute #) 0.01 x10^3/uL (0.01-0.08); Eosinophil (Absolute #) 0 x10^3/uL (0.04-0.54); Hemoglobin 11.2 g/dL (13.7-17.5); IMMATURE GRAN # 0.05 x10^3u/L (0.001-0.031); IMMATURE GRAN % 0.3 % (0.001-0.429); Lymphocyte (Absolute #) 0.33 x10^3/uL (1.32-3.57); Lymphocytes % 2.1 % (21.8-53.1); Mean Cell Volume 93.1 fL (79.0-92.2); Mean Corpuscular Hemoglobin 29.8 pg (25.7-32.2); Mean Platelet Volume 11.1 fL (9.4-12.4); Monocyte (Absolute #) 0.58 x10^3/uL (0.30-0.82); Monocytes % 3.7 % (5.3-12.2); Neutrophil % 93.8 % (34.0-67.9); Platelet Count 237 x10^3/uL (163-337); Red Blood Count 3.76 x10^6/uL (4.63-6.08); Red Cell Distribution Width 13.2 % (11.6-14.4); White Blood Count 15.6 x10^3/uL (4.23-9.07)
[2024-04-29 08:33] LABS: ALBUMIN 2.9 g/dL (3.5-5.0); BILIRUBIN,TOTAL 0.3 mg/dL (0.2-1.3); Calcium 8.9 mg/dL (8.4-10.2); Creatinine 1 0.98 mg/dL (0.66-1.25); Potassium 3.9 mmol/L (3.5-5.1); Slide Review 1 YES
[2024-04-29] MEDS: PROTONIX 40 MG IV IV SCH (10:53)
[2024-04-29] MEDS: DELTASONE 20 MG PO SCH (10:53)
[2024-04-29] MEDS: HUMALOG SQ PRN (13:25)
[2024-04-29] MEDS: HUMALOG SQ SCH (17:06)
[2024-04-30 04:14] VITALS: TEMP 97.1
--- NOTE | 2024-04-30 04:59 | PCM.DS ---
Discharge Summary Date of Admission: 04/27/24 22:27 Date of Discharge: 04/30/24 Admitting Physician: SHEILA FRASER MD Primary Care Provider: AME ULLOA Allergies Allergies No Known Drug Allergies Allergy (Verified 04/27/24 16:36) Hospital Summary - Hospital Course Hospital Course: HPI: 78 years old very pleasant male with past medical history significant for COPD not on home oxygen, coronary artery disease status post stent, prior history of stroke without residual deficit, diabetes mellitus type 2, very hard to hear, lives with daughter who brought to ER for shortness of breath and desaturation. As per daughter patient was not doing good for last 3 days he is not having any p.o. intake feeling very weak and tired, he is remaining cold and complaining of chills all the time. He did have some productive cough with yellow phlegm. Daughter told me he is having chronic cough. Yesterday he was taken to PCP where his oxygen saturation was noted around 87% and he was prescribed steroids .in the ER the vital signs were stable patient was afebrile. As well as blood workup concerned it was remarkable with leukocytosis and high procalcitonin l evel. Troponin negative, EKG sinus tachy otherwise umimpressive .patient tested negative for influenza and COVID, x-ray showed bilateral opacities and chronic COPD changes.Patient was admitted for COPD exacerbation and pneumonia. Dyspnea has improved. Repeat CXR stable. Able to titrate oxygen to 2L but qualifies for home oxygen which we will set up for him. Patient is requesting discharge home today. Will send on oral abx/steroid. He has a home nebulizer machine with DuoNebs. Weakness improved and patient able to complete ADLs. New Diagnosis: Pneumonia/copd exacerbation New Medications: cefpodoxime/prednisone/oxygen Follow Up: PCP Latest Assessment & Plan (1) Acute respiratory failure with hypoxia Current Visit: Yes Status: Acute Assessment & Plan: -secondary to pneumonia/ copd exacerbation -Supplemental oxygen with spo2 goal > 91% - currently at 2L RA at baseline -Sats at 87% on arrival -RT eval -Nebs/INH -steroids -ceftriaxone/azithromycin -WBC improving 9.9<16.5 -bcult pending -Procal elevated at 8.090 -Viral resp panel negative -add mucinex 04/29: -Aeration improved -on 1L oxygen - Home qualify today -Change steroids to oral prednisone -Continue ceftriaxone/azithromycin -repeat procal -bcult ngtd Code(s): J96.01 - ACUTE RESPIRATORY FAILURE WITH HYPOXIA (2) COPD exacerbation Current Visit: Yes Status: Acute Assessment & Plan: -see ARF for plan Code(s): J44.1 - CHRONIC OBSTRUCTIVE PULMONARY DISEASE W (ACUTE) EXACERBATION (3) Pneumonia Current Visit: Yes Status: Acute Assessment & Plan: -continue ceftriaxone/azithromycin/ solumedrol - see plan for arf Code(s): J18.9 - PNEUMONIA, UNSPECIFIED ORGANISM (4) Weakness Current Visit: Yes Status: Acute Assessment & Plan: -Most likely secondary to infection -treat underlying infection -PT/OT eval 04/29: -improving - walk pt TID Code(s): R53.1 - WEAKNESS (5) Diabetes mellitus Current Visit: Yes Status: Acute Assessment & Plan: -ADA diet -SSI -A1c pending Code(s): E11.9 - TYPE 2 DIABETES MELLITUS WITHOUT COMPLICATIONS (6) CAD (coronary artery disease) Current Visit: Yes Status: Acute Assessment & Plan: -s/p stent -continue home meds -negative trop -denies CP Code(s): I25.10 - ATHSCL HEART DISEASE OF [place] CORONARY ARTERY W/O ANG PCTRS (7) History of stroke Current Visit: Yes Status: Acute Assessment & Plan: Without residual deficit -Patient is not taking his aspirin and statins regularly Code(s): Z86.73 - PRSNL HX OF TIA (TIA), AND CEREB INFRC W/O RESID DEFICITS (8) Noncompliance Current Visit: Yes Status: Acute Assessment & Plan: -with home meds DVT prophylaxis SCD/Lovenox GI prophylaxis pantoprazole I spent 35 minutes [id number] with the patient on the day of discharge performing discharge exam, discussing hospital stay and discharge instructions with patient and caregivers, preparation of discharge records, prescriptions & referral forms and addressing any questions/concerns the patient had as documented above. - Vitals & Intake/Output Vital Signs: Vital Signs Temperature 97.1 F 04/30/24 04:00 Pulse Rate 84 04/30/24 04:00 Respiratory Rate 26 H 04/30/24 04:00 Blood Pressure 119/58 04/30/24 04:00 O2 Sat by Pulse Oximetry 95 04/30/24 04:00 Intake & Output: Intake & Output 04/27/24 04/28/24 04/29/24 04/30/24 11:59 11:59 11:59 11:59 Intake Total 620 1300 1641 Output Total 125 Balance 495 1300 1641 Weight 58.3 kg - Lab Result Diagrams: 04/30/24 05:44 04/30/24 05:44 Lab Results-Last 24 Hrs: Lab Results-Last 24 Hours 04/29/24 04/29/24 04/29/24 Range/Units 06:41 08:02 08:02 WBC 15.6 H (4.23-9.07) x10^3/uL RBC 3.76 L (4.63-6.08) x10^6/uL Hgb 11.2 L (13.7-17.5) g/dL Hct 35.0 L (40.1-51.0) % MCV 93.1 H (79.0-92.2) fL MCH 29.8 (25.7-32.2) pg MCHC 32.0 L (32.3-36.5) g/dL RDW 13.2 (11.6-14.4) % Plt Count 237 (163-337) x10^3/uL MPV 11.1 (9.4-12.4) fL Gran % 93.8 H (34.0-67.9) % Immature Gran % (Auto) 0.3 (0.001-0.429) % Nucleat RBC Rel Count 0.0 (0.00-0.2) % Eos # (Auto) 0 L (0.04-0.54) x10^3/uL Immature Gran # (Auto) 0.05 H (0.001-0.031) x10^3u/L Absolute Lymphs (auto) 0.33 L (1.32-3.57) x10^3/uL Absolute Monos (auto) 0.58 (0.30-0.82) x10^3/uL Absolute Nucleated RBC 0.00 (0.00-0.012) x10^3u/L Lymphocytes % 2.1 L (21.8-53.1) % Monocytes % 3.7 L (5.3-12.2) % Eosinophils % 0.0 L (0.8-7.0) % Basophils % 0.1 L (0.2-1.2) % Absolute Granulocytes 14.66 H (1.78-5.38) x10^3/uL Basophils # 0.01 (0.01-0.08) x10^3/uL Sodium 137 (135-145) mmol/L Potassium 3.9 (3.5-5.1) mmol/L Chloride 107 (98-107) mmol/L Carbon Dioxide 23 (22-30) mmol/L Anion Gap 12.0 (5-15) MEQ/L BUN 41 H (9-20) mg/dL Creatinine 0.98 (0.66-1.25) mg/dL Estimated GFR 78.0 ML/MIN Glucose 287 H (74-106) mg/dL POC Glucometer 255 H (74 to 106) mg/dL Calcium 8.9 (8.4-10.2) mg/dL Total Bilirubin 0.30 (0.2-1.3) mg/dL AST 16 L (17-59) U/L ALT 14 (0-50) U/L Alkaline Phosphatase 55 (38-126) U/L Serum Total Protein 6.0 L (6.3-8.2) g/dL Albumin 2.9 L (3.5-5.0) g/dL Procalcitonin (0.030-0.080) ng/mL Slides for Path Review YES 04/29/24 04/29/24 04/29/24 Range/Units 08:02 12:22 14:26 WBC (4.23-9.07) x10^3/uL RBC (4.63-6.08) x10^6/uL Hgb (13.7-17.5) g/dL Hct (40.1-51.0) % MCV (79.0-92.2) fL MCH (25.7-32.2) pg MCHC (32.3-36.5) g/dL RDW (11.6-14.4) % Plt Count (163-337) x10^3/uL MPV (9.4-12.4) fL Gran % (34.0-67.9) % Immature Gran % (Auto) (0.001-0.429) % Nucleat RBC Rel Count (0.00-0.2) % Eos # (Auto) (0.04-0.54) x10^3/uL Immature Gran # (Auto) (0.001-0.031) x10^3u/L Absolute Lymphs (auto) (1.32-3.57) x10^3/uL Absolute Monos (auto) (0.30-0.82) x10^3/uL Absolute Nucleated RBC (0.00-0.012) x10^3u/L Lymphocytes % (21.8-53.1) % Monocytes % (5.3-12.2) % Eosinophils % (0.8-7.0) % Basophils % (0.2-1.2) % Absolute Granulocytes (1.78-5.38) x10^3/uL Basophils # (0.01-0.08) x10^3/uL Sodium (135-145) mmol/L Potassium (3.5-5.1) mmol/L Chloride (98-107) mmol/L Carbon Dioxide (22-30) mmol/L Anion Gap (5-15) MEQ/L BUN (9-20) mg/dL Creatinine (0.66-1.25) mg/dL Estimated GFR ML/MIN Glucose (74-106) mg/dL POC Glucometer 292 H 270 H (74 to 106) mg/dL Calcium (8.4-10.2) mg/dL Total Bilirubin (0.2-1.3) mg/dL AST (17-59) U/L ALT (0-50) U/L Alkaline Phosphatase (38-126) U/L Serum Total Protein (6.3-8.2) g/dL Albumin (3.5-5.0) g/dL Procalcitonin 2.870 H* (0.030-0.080) ng/mL Slides for Path Review 04/29/24 04/29/24 04/29/24 Range/Units 15:27 16:26 21:14 WBC (4.23-9.07) x10^3/uL RBC (4.63-6.08) x10^6/uL Hgb (13.7-17.5) g/dL Hct (40.1-51.0) % MCV (79.0-92.2) fL MCH (25.7-32.2) pg MCHC (32.3-36.5) g/dL RDW (11.6-14.4) % Plt Count (163-337) x10^3/uL MPV (9.4-12.4) fL Gran % (34.0-67.9) % Immature Gran % (Auto) (0.001-0.429) % Nucleat RBC Rel Count (0.00-0.2) % Eos # (Auto) (0.04-0.54) x10^3/uL Immature Gran # (Auto) (0.001-0.031) x10^3u/L Absolute Lymphs (auto) (1.32-3.57) x10^3/uL Absolute Monos (auto) (0.30-0.82) x10^3/uL Absolute Nucleated RBC (0.00-0.012) x10^3u/L Lymphocytes % (21.8-53.1) % Monocytes % (5.3-12.2) % Eosinophils % (0.8-7.0) % Basophils % (0.2-1.2) % Absolute Granulocytes (1.78-5.38) x10^3/uL Basophils # (0.01-0.08) x10^3/uL Sodium (135-145) mmol/L Potassium (3.5-5.1) mmol/L Chloride (98-107) mmol/L Carbon Dioxide (22-30) mmol/L Anion Gap (5-15) MEQ/L BUN (9-20) mg/dL Creatinine (0.66-1.25) mg/dL Estimated GFR ML/MIN Glucose (74-106) mg/dL POC Glucometer 247 H 212 H 206 H (74 to 106) mg/dL Calcium (8.4-10.2) mg/dL Total Bilirubin (0.2-1.3) mg/dL AST (17-59) U/L ALT (0-50) U/L Alkaline Phosphatase (38-126) U/L Serum Total Protein (6.3-8.2) g/dL Albumin (3.5-5.0) g/dL Procalcitonin (0.030-0.080) ng/mL Slides for Path Review Micro Results-Entire Visit: Microbiology 04/27/24 17:45 Blood Culture - Preliminary Blood 04/27/24 17:50 Blood Culture - Preliminary Blood Accuchecks Date 04/29/24 Date 04/29/24 Date 04/29/24 Date 04/29/24 Date 04/29/24 Time 16:25 Time 15:27 Time 14:25 Time 12:25 Time 06:54 - Procedures and Test Procedures and Tests throughout Hospitalization: Therapy Orders & Screens 04/27/24 21:00 Oxygen Nasal Cannula 2 lpm Comment: Respiratory Therapy Consult ONCE Comment: Reason For Exam: 04/27/24 21:20 OT Screen per Nursing Assess ONCE Comment: Protocol Order Physician Instructions: Greater than 3 points order OT Admission Screening Reason For Exam: Triggered on Admission Diagnosis: pneumonia, COPD exacerbation Open Wound/Cellutlitis/Pressure Ulcers: No Acute Fx/ORIF/Change in wt bearing status: No Severe MUSCULOSKELETAL pain: No ADL Dysfunction: Yes Acute CVA w/Hemiparesis/Hemiplegia: No Decreased Functional Mobility/Strength: Yes Sprain/Strain: No Acute Post-op Mobility Dysfunction: No Total Points: 4 PT Screen per Nursing Assess ONCE Comment: Protocol Order Physician Instructions: Greater than 3 points order PT Admission Screenin Reason For Exam: Triggered on Admission Diagnosis: pneumonia, COPD exacerbation Open Wound/Cellutlitis/Pressure Ulcers: No Acute Fx/ORIF/Change in wt bearing status: No Severe MUSCULOSKELETAL pain: No ADL Dysfunction: Yes Acute CVA w/Hemiparesis/Hemiplegia: No Decreased Functional Mobility/Strength: Yes Sprain/Strain: No Acute Post-op Mobility Dysfunction: No Total Points: 4 ST Screen per Nursing Assess ONCE Comment: Protocol Order Physician Instructions: Greater than [address] Admission Screening Reason For Exam: Triggered on Admission Diagnosis: pneumonia, COPD exacerbation CVA/Dyshpagia/Aphasia: No Cognitive Deficits: No Dehydration/Nutrition Deficit: No Reflux: No Oral-Motor Difficulties: No Pneumonia: Yes Snf Resident: No Total Points: 5 04/29/24 09:45 Qualify for Home Oxygen TODAY Comment: Diagnosis: pneumonia, COPD exacerbation Discharge Exam General Appearance: no apparent distress Neurologic Exam: alert, oriented x 3, cooperative Eye Exam: PERRL Ears, Nose, Throat Exam: normal ENT inspection Neck Exam: normal inspection Respiratory Exam: crackles/rales Cardiovascular Exam: regular rate/rhythm, normal heart sounds, normal peripheral pulses Gastrointestinal/Abdomen Exam: soft, normal bowel sounds Male Genitalia Exam: deferred Rectal Exam: deferred Back Exam: normal inspection Extremity Exam: normal inspection Skin Exam: normal color Final Diagnosis/Problem List - Final Discharge Diagnosis/Problem (1) Acute respiratory failure with hypoxia Current Visit: Yes Status: Acute Code(s): J96.01 - ACUTE RESPIRATORY FAILURE WITH HYPOXIA (2) COPD exacerbation Current Visit: Yes Status: Acute Code(s): J44.1 - CHRONIC OBSTRUCTIVE PULMONARY DISEASE W (ACUTE) EXACERBATION (3) Pneumonia Current Visit: Yes Status: Acute Code(s): J18.9 - PNEUMONIA, UNSPECIFIED ORGANISM (4) Weakness Current Visit: Yes Status: Resolved Code(s): R53.1 - WEAKNESS (5) Diabetes mellitus Current Visit: Yes Status: Chronic Code(s): E11.9 - TYPE 2 DIABETES MELLITUS WITHOUT COMPLICATIONS (6) CAD (coronary artery disease) Current Visit: Yes Status: Chronic Code(s): I25.10 - ATHSCL HEART DISEASE OF [place] CORONARY ARTERY W/O ANG PCTRS (7) History of stroke Current Visit: Yes Status: Chronic Code(s): Z86.73 - PRSNL HX OF TIA (TIA), AND CEREB INFRC W/O RESID DEFICITS (8) Noncompliance Current Visit: Yes Status: Acute Code(s): Z91.199 - PT NONCOMPL WITH OTHER MED TRTMT AND REGIMEN D/T UNSP REASON - Discharge Disposition: Home, Self-Care Condition: Stable Prescriptions: New Prednisone 20 mg [Deltasone 20 mg] 20 mg PO BID 5 Days #10 tablet Aspirin EC 81 mg [Ecotrin 81 mg] 81 mg PO DAILY tablet Guaifenesin 600 mg ER [Mucinex 600MG ER Tabs] 600 mg PO BID 7 Days #14 tablet PANTOPRAZOLE 40 mg Tablet [Protonix 40MG Tablet] 40 mg PO QAM 14 Days #14 tab Cefpodoxime Proxetil 200 mg [Vantin 200 mg] 200 mg PO BID 10 Days #20 tablet Continue Metformin HCl 500 mg [Glucophage 500 MG] 1 tab PO BID Albuterol 2.5 mg/3 ml Neb [Proventil 2.5 mg/3 ml Neb] 2.5 mg IH Q6H PRN PRN PRN Reason: Shortness Of Breath Fluticasone/Umeclidin/Vilanter [Trelegy Ellipta 100-62.5-25] 1 each IH DAILY Discontinued Prednisone 10 mg [Deltasone 10 mg] 10 mg PO DAILY Follow up with: AME ULLOA [Primary Care Provider] -
[2024-04-30 06:38] LABS: BASOPHIL % 0.1 % (0.2-1.2); Basophil (Absolute #) 0.01 x10^3/uL (0.01-0.08); Eosinophil (Absolute #) 0 x10^3/uL (0.04-0.54); Hematocrit 34.2 % (40.1-51.0); Hemoglobin 10.8 g/dL (13.7-17.5); IMMATURE GRAN # 0.06 x10^3u/L (0.001-0.031); IMMATURE GRAN % 0.6 % (0.001-0.429); Lymphocytes % 3.9 % (21.8-53.1); Mean Cell Volume 92.2 fL (79.0-92.2); Mean Corpuscular Hemoglobin 29.1 pg (25.7-32.2); Mean Corpuscular Hgb Concent. 31.6 g/dL (32.3-36.5); Mean Platelet Volume 11.7 fL (9.4-12.4); Monocyte (Absolute #) 0.54 x10^3/uL (0.30-0.82); Monocytes % 5.3 % (5.3-12.2); Neutrophil % 90.1 % (34.0-67.9); Platelet Count 236 x10^3/uL (163-337); Red Blood Count 3.71 x10^6/uL (4.63-6.08); Red Cell Distribution Width 13.5 % (11.6-14.4); White Blood Count 10.2 x10^3/uL (4.23-9.07)
[2024-04-30 06:48] LABS: ALBUMIN 2.8 g/dL (3.5-5.0); ANION GAP 10.1 MEQ/L (5-15); BILIRUBIN,TOTAL 0.3 mg/dL (0.2-1.3); Calcium 8.9 mg/dL (8.4-10.2); Creatinine 1 1.02 mg/dL (0.66-1.25); EST GLOMERULAR FILTRATION RATE 74.3 ML/MIN; Potassium 4.5 mmol/L (3.5-5.1)
[2024-04-30 07:12] LABS: Slide Review 1 YES
--- NOTE | 2024-04-30 10:09 | XRAY ---
CLINICAL HISTORY: sob/cough COMPARISON: 04/27/2024 TECHNIQUE: X ray of the chest, AP view. FINDINGS: There are pulmonary infiltrates in the left upper zone. Right apical pleural thickening- Old healed lesion. Cardiac silhouette is enlarged. Mild pleural reaction involving the both costophrenic recesses/conspicuous in the right costophrenic recess. Bibasal prominent interstitial marking?senile changes Degenerative thoracic spine changes are seen in the form of osteophytosis, endplate sclerosis and multilevel anterior wedging of thoracic vertebral bodies. IMPRESSION: 1. Pulmonary infiltrates in the left upper zone. Postinflammatory. Suggest clinical and lab correlation. 2. Mild cardiomegaly. 3. Bilateral minimal to mild pleural reaction. Chest ultrasound may be done if clinically warranted. 4. Comparing the previous x-ray dated 04/28/2024 findings remain stable. Electronically Signed by: Luis M Weller MD. (04/30/2024 10:04:42 EDT)
[2024-04-30 11:43] VITALS: BP 144/64; PULSE 89; RESP 17; O2SAT 97
== END 2024-04-30 14:40 | disposition home or self-care (01) | DRG 189 ==
LOC: ED 16:26 → MED SURG 20:54 → OBSVTOIN 22:27
PROVIDERS: ADMIT Internal Medicine; ATTEND Internal Medicine
DX: J96.01 Acute respiratory failure with hypoxia (principal); J18.9 Pneumonia, unspecified organism; J44.1 Chronic obstructive pulmonary disease with (acute) exacerbation; R53.1 Weakness; E11.9 Type 2 diabetes mellitus without complications; I25.10 Atherosclerotic heart disease of native coronary artery without angina pectoris; J60 Coalworker's pneumoconiosis; Z86.73 Personal history of transient ischemic attack (TIA), and cerebral infarction without residual deficits; Z91.148 Patient's other noncompliance with medication regimen for other reason; Z79.899 Other long term (current) drug therapy; Z20.828 Contact with and (suspected) exposure to other viral communicable diseases
CPT/HCPCS: 0241U; 36000; 36415; 71045; 80048; 80053; 82947; 83605; 83735; 84145; 84484; 85025; 85027; 87040; 93005; 93041; 93268; 94640; 94762; 96360; 96361; 96365; 96367; 96374; 99285; 96375; J0456; J0696; J1650; J1817; J2919; Q3014; A9270-GY

== ENCOUNTER 2025-03-21 21:23 | Observation (INO) | payer MEDICARE ==
[2025-03-21 22:06] LABS: BASOPHIL % 0.4 % (0.2-1.2); Basophil (Absolute #) 0.04 x10^3/uL (0.01-0.08); Eosinophil (Absolute #) 0.13 x10^3/uL (0.04-0.54); Hematocrit 41.1 % (40.1-51.0); Hemoglobin 12.6 g/dL (13.7-17.5); IMMATURE GRAN # 0.05 x10^3u/L (0.001-0.031); IMMATURE GRAN % 0.5 % (0.001-0.429); Lymphocyte (Absolute #) 1.62 x10^3/uL (1.32-3.57); Mean Corpuscular Hemoglobin 28.2 pg (25.7-32.2); Mean Corpuscular Hgb Concent. 30.7 g/dL (32.3-36.5); Monocyte (Absolute #) 0.81 x10^3/uL (0.30-0.82); NUCLEATED RBC # 0.00 x10^3u/L (0.00-0.012); NUCLEATED RBC % 0.0 % (0.00-0.2); Platelet Count 364 x10^3/uL (163-337); Red Blood Count 4.47 x10^6/uL (4.63-6.08); White Blood Count 9.7 x10^3/uL (4.23-9.07)
[2025-03-21 22:21] LABS: Calcium 9.6 mg/dL (8.4-10.2); Carbon Dioxide 22.0 mmol/L (22-30); Creatinine 1 1.22 mg/dL (0.66-1.25); EST GLOMERULAR FILTRATION RATE 59.6 ML/MIN; Glucose 123.0 mg/dL (74-106); Potassium 5.0 mmol/L (3.5-5.1); SGOT/AST 61.0 U/L (17-59); SGPT/ALT 56.0 U/L (0-50); Total Protein 8.0 g/dL (6.3-8.2)
--- NOTE | 2025-03-21 23:20 | ERPHSYRPT ---
- History of Present Illness Time Seen by Provider: 03/21/25 21:49 Source: patient, family Exam Limitations: no limitations Patient Subjective Stated Complaint: Daughter states, "He fell today and he's been really weak. He's had several rounds of diarrhea. I can't get him to eat or take the protein shakes. He was in the hospital a little while ago with a Subdural hematoma, hernia, and got diagnosed with heart failure. They said he's around 20%". Triage Nursing Assessment: Pt presents to ER with daughter who is also he's POA. Pt appears pale, frail, and weak. Pt told his daughter he has been dizzy and weak. Daughter states he's been having a lot of diarrhea today and also fell earlier. Pt complains of mild pain to right lower ribs. Pt is alert but slightly slow to respond. Pt's daughter states he has been losing weight and not eating. Pt has emesis bag and feel like he has some nausea. Respirations are unlabored. Lung sounds clear but diminished throughout. Pt has unsteady shuffle gait and appears very weak. Physician History: 79-year-old male with history of hypertension, GERD, COPD, failure to thrive, recent subdural hematoma is brought in the ER by daughter with increasing generalized weakness fatigue tiredness and decreased oral intake lately. Daughter reports patient had multiple rounds of loose stool all day today and is not able to keep up with his hydration. He also fell today and hit his ribs but did not hit his head. No loss of consciousness. It was a mechanical fall. Patient is refusing to eat and drink. He also has congestive heart failure with a EF of 20% checked on a previous admission. Patient denies any abdominal pain, chest pain or difficulty breathing. Room air oxygen around 98%. Blood pressure in 130s. No tachypnea or tachycardia. Allergies/Adverse Reactions: No Known Drug Allergies Allergy (Verified 03/21/25 21:42) Home Medications: Albuterol 2.5 mg/3 ml Neb [Proventil 2.5 mg/3 ml Neb] 2.5 mg IH Q6H PRN PRN 04/27/24 [History] Fluticasone/Umeclidin/Vilanter [Trelegy Ellipta 100-62.5-25] 1 each IH DAILY 04/27/24 [History] Metformin HCl 500 mg [Glucophage 500 MG] 2 tab PO BID 04/27/24 [History] Metoprolol Succinate 50 mg [Toprol Xl 50 MG] 0.5 tab PO DAILY 03/21/25 [History] Hx Tetanus, Diphtheria Vaccination/Date Given: Yes Hx Influenza Vaccination/Date Given: No Hx Pneumococcal Vaccination/Date Given: No Immunizations Up to Date: No Travel Risk - International Travel Have you traveled outside of the country in past 3 weeks: No - Emerging Infectious Disease Are you exhibiting symptoms associated with any current EIDs: No Symptoms: Cough: New Onset, Shortness of Breath - Review of Systems Constitutional: Fatigue, Weakness Eyes: No Symptoms Ears, Nose, & Throat: No Symptoms Respiratory: No Symptoms Cardiac: No Symptoms Abdominal/Gastrointestinal: Diarrhea Genitourinary Symptoms: No Symptoms Musculoskeletal: Arthralgias Skin: No Symptoms Neurological: Headache (Chronic headaches since subdural) Endocrine: No Symptoms Hematologic/Lymphatic: No Symptoms - Past Medical History Pertinent Past Medical History: Yes Neurological History: Stroke, TIA ENT History: No Pertinent History Cardiac History: Congestive Heart Failure Respiratory History: COPD, Other Endocrine Medical History: Diabetes Type II Musculoskeletal History: No Pertinent History GI Medical History: Hernia History: No Pertinent History Psycho-Social History: No Pertinent History Male Reproductive Disorders: No Pertinent History Other Medical History: BLACK LUNG; HX TIAS POSSIBLY, gall stones - Past Surgical History Past Surgical History: Yes Neuro Surgical History: No Pertinent History Cardiac: Cardiac Catheterization Respiratory: Other Gastrointestinal: No Pertinent History Genitourinary: Other Musculoskeletal: Orthopedic Surgery Male Surgical History: No Pertinent History Other Surgical History: lung biopsy, hand surgery, bladder stimulator Significant Family History: no pertinent family hx, heart disease (mother) - Social History Smoking Status: Former smoker Exposure to second hand smoke: No Drug Use: none - Social Determinants of Health Will the patient participate in the screening: Yes Do you worry about a steady place to live?: No Do you have any problems with any of the following?: No known problems In the past 12 months,have you had to go without utilities?: No Transportation Issues: No Has anyone in your support network made you feel unsafe?: No Have you or anyone in your house had to go w/o enough food: No - Nursing Vital Signs Nursing Vital Signs: Initial Vital Signs Pulse Rate 80 03/21/25 21:35 Respiratory Rate 18 03/21/25 21:35 Blood Pressure 139/80 03/21/25 21:35 O2 Sat by Pulse Oximetry 98 03/21/25 21:35 Pain Scale Pain Intensity 0 - Physical Exam General Appearance: no apparent distress, alert, cachetic Eye Exam: PERRL/EOMI Ears, Nose, Throat Exam: normal ENT inspection Neck Exam: normal inspection, full range of motion Respiratory Exam: normal breath sounds, lungs clear Cardiovascular Exam: regular rate/rhythm, normal heart sounds Gastrointestinal/Abdomen Exam: soft, normal bowel sounds, tenderness (Mild generalized to deep palpation) Extremity Exam: normal inspection, normal range of motion Neurologic Exam: alert, oriented x 3, cooperative, 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 as tested, sensation nml, No motor deficits Skin Exam: normal color SpO2 Interpretation: normal SpO2: 99 O2 Delivery: Room Air Ordered Tests: Active Orders 24 hr Category Date Time Status IV Insertion STAT Care 03/21/25 21:50 Active NPO (ED) STAT Care 03/21/25 21:50 Active ABDOMEN AND PELVIS W/0 CONTRAS [CT] Stat Exams 03/21/25 21:50 Completed CHEST WITHOUT CONTRAST [CT] Stat Exams 03/21/25 21:50 Completed CBC W DIFF Stat Lab 03/21/25 22:00 Completed CMP Stat Lab 03/21/25 22:00 Completed CULTURE,URINE Stat Lab 03/22/25 01:51 Received LIPASE Stat Lab 03/21/25 22:00 Completed Lactic Acid Stat Lab 03/21/25 22:06 Completed Lactic Acid Stat Lab 03/22/25 00:16 Completed UA W/RFX UR CULTURE Stat Lab 03/22/25 01:51 Completed Medication Summary Generic Name Dose Route Start Last Admin Trade Name Freq PRN Reason Stop Dose Admin Ceftriaxone Sodium 2 gm in 100 mls @ 200 mls/hr 03/22/25 02:21 Rocephin 2 Gm/100 Ml Nacl IV 03/22/25 02:50 STAT STA Sodium Chloride 1,000 mls @ 100 mls/hr 03/22/25 02:30 Sodium Chloride 0.9% 1000 Ml IV 04/21/25 02:29 .Q10H ENRIQUE Discontinued Medications Generic Name Dose Route Start Last Admin Trade Name Freq PRN Reason Stop Dose Admin Sodium Chloride 500 mls @ 500 mls/hr 03/21/25 21:51 03/21/25 23:00 Sodium Chloride 0.9% 500 Ml IV 03/21/25 22:50 Infused .Q1H ONE Infusion Sodium Chloride Confirm 03/21/25 21:58 Sodium Chloride 0.9% 500 Ml Administered 03/21/25 21:59 Dose 500 mls @ ud IV .STK-MED ONE Sodium Chloride 500 mls @ 500 mls/hr 03/21/25 23:52 03/22/25 01:04 Sodium Chloride 0.9% 500 Ml IV 03/22/25 00:51 Infused .Q1H STA Infusion Sodium Chloride Confirm 03/22/25 00:37 Sodium Chloride 0.9% 500 Ml Administered 03/22/25 00:38 Dose 500 mls @ ud IV .STK-MED ONE Ceftriaxone Sodium Confirm 03/22/25 02:24 Rocephin 2 Gm/100 Ml Nacl Administered 03/22/25 02:25 Dose 2 gm in 100 mls @ ud IV .STK-MED ONE Lab/Rad Data: Laboratory Result Diagrams 03/21/25 22:00 03/21/25 22:00 Laboratory Results 03/22/25 03/22/25 03/21/25 Range/Units 01:51 00:16 22:06 WBC (4.23-9.07) x10^3/uL RBC (4.63-6.08) x10^6/uL Hgb (13.7-17.5) g/dL Hct (40.1-51.0) % MCV (79.0-92.2) fL MCH (25.7-32.2) pg MCHC (32.3-36.5) g/dL RDW (11.6-14.4) % Plt Count (163-337) x10^3/uL MPV (9.4-12.4) fL Gran % (34.0-67.9) % Immature Gran % (Auto) (0.001-0.429) % Nucleat RBC Rel Count (0.00-0.2) % Eos # (Auto) (0.04-0.54) x10^3/uL Immature Gran # (Auto) (0.001-0.031) x10^3u/L Absolute Lymphs (auto) (1.32-3.57) x10^3/uL Absolute Monos (auto) (0.30-0.82) x10^3/uL Absolute Nucleated RBC (0.00-0.012) x10^3u/L Lymphocytes % (21.8-53.1) % Monocytes % (5.3-12.2) % Eosinophils % (0.8-7.0) % Basophils % (0.2-1.2) % Absolute Granulocytes (1.78-5.38) x10^3/uL Basophils # (0.01-0.08) x10^3/uL Sodium (135-145) mmol/L Potassium (3.5-5.1) mmol/L Chloride (98-107) mmol/L Carbon Dioxide (22-30) mmol/L Anion Gap (5-15) MEQ/L BUN (9-20) mg/dL Creatinine (0.66-1.25) mg/dL Estimated GFR ML/MIN Glucose (74-106) mg/dL Lactic Acid 1.7 3.6 H (0.4-2.0) Calcium (8.4-10.2) mg/dL Total Bilirubin (0.2-1.3) mg/dL AST (17-59) U/L ALT (0-50) U/L Alkaline Phosphatase (38-126) U/L Serum Total Protein (6.3-8.2) g/dL Albumin (3.5-5.0) g/dL Lipase (23-300) U/L Urine Color Dark Yellow (Yellow) Urine Appearance Turbid A (Clear) Urine pH 5.5 (4.6-8.0) Ur Specific Taft 1.020 (1.005-1.030) Urine Protein 30 (Negative) Urine Glucose (UA) Negative (Negative) mg/dL Urine Ketones 15 A (Negative) Urine Blood Moderate A (Negative) Urine Nitrite Positive A (Negative) Urine Bilirubin Negative (Negative) Urine Urobilinogen 1.0 A (0.2) mg/dL Ur Leukocyte Esterase Large A (Negative) U Hyaline Cast (Auto) NONE SEEN (0-2) /LPF Urine Microscopic RBC 3-5 (0-5) /HPF Urine Microscopic WBC >100 A (0-5) /HPF Ur Epithelial Cells Rare (None Seen) /HPF Urine Bacteria Few A (None Seen) /HPF Urine Culture Reflexed YES (NO) 03/21/25 03/21/25 Range/Units 22:00 22:00 WBC 9.7 H (4.23-9.07) x10^3/uL RBC 4.47 L (4.63-6.08) x10^6/uL Hgb 12.6 L (13.7-17.5) g/dL Hct 41.1 (40.1-51.0) % MCV 91.9 (79.0-92.2) fL MCH 28.2 (25.7-32.2) pg MCHC 30.7 L (32.3-36.5) g/dL RDW 14.3 (11.6-14.4) % Plt Count 364 H (163-337) x10^3/uL MPV 10.3 (9.4-12.4) fL Gran % 72.7 H (34.0-67.9) % Immature Gran % (Auto) 0.5 H (0.001-0.429) % Nucleat RBC Rel Count 0.0 (0.00-0.2) % Eos # (Auto) 0.13 (0.04-0.54) x10^3/uL Immature Gran # (Auto) 0.05 H (0.001-0.031) x10^3u/L Absolute Lymphs (auto) 1.62 (1.32-3.57) x10^3/uL Absolute Monos (auto) 0.81 (0.30-0.82) x10^3/uL Absolute Nucleated RBC 0.00 (0.00-0.012) x10^3u/L Lymphocytes % 16.7 L (21.8-53.1) % Monocytes % 8.4 (5.3-12.2) % Eosinophils % 1.3 (0.8-7.0) % Basophils % 0.4 (0.2-1.2) % Absolute Granulocytes 7.05 H (1.78-5.38) x10^3/uL Basophils # 0.04 (0.01-0.08) x10^3/uL Sodium 137 (135-145) mmol/L Potassium 5.0 (3.5-5.1) mmol/L Chloride 103 (98-107) mmol/L Carbon Dioxide 22 (22-30) mmol/L Anion Gap 17.0 H (5-15) MEQ/L BUN 39 H (9-20) mg/dL Creatinine 1.22 (0.66-1.25) mg/dL Estimated GFR 59.6 ML/MIN Glucose 123 H (74-106) mg/dL Lactic Acid (0.4-2.0) Calcium 9.6 (8.4-10.2) mg/dL Total Bilirubin 0.60 (0.2-1.3) mg/dL AST 61 H (17-59) U/L ALT 56 H (0-50) U/L Alkaline Phosphatase 72 (38-126) U/L Serum Total Protein 8.0 (6.3-8.2) g/dL Albumin 4.1 (3.5-5.0) g/dL Lipase 51 (23-300) U/L Urine Color (Yellow) Urine Appearance (Clear) Urine pH (4.6-8.0) Ur Specific Taft (1.005-1.030) Urine Protein (Negative) Urine Glucose (UA) (Negative) mg/dL Urine Ketones (Negative) Urine Blood (Negative) Urine Nitrite (Negative) Urine Bilirubin (Negative) Urine Urobilinogen (0.2) mg/dL Ur Leukocyte Esterase (Negative) U Hyaline Cast (Auto) (0-2) /LPF Urine Microscopic RBC (0-5) /HPF Urine Microscopic WBC (0-5) /HPF Ur Epithelial Cells (None Seen) /HPF Urine Bacteria (None Seen) /HPF Urine Culture Reflexed (NO) - Progress Progress: improved, re-examined Progress Note: 03/22/25 02:27 Differential diagnosis: Diarrhea/gastroenteritis, obstruction, colitis, acute renal failure, dehydration, UTI, sepsis, rib fracture, mechanical fall 79-year-old is evaluated in the ER for generalized weakness fatigue tiredness, decreased oral intake and diarrhea. He is given gentle hydration. Feeling better on reevaluation. Workup showed white count of 9, chemistries with a creatinine of 1.2 and BUN of 39, has stable H&H. Does have UTI and started on Rocephin. Had a lactate of 3.6, rechecked after fluid and it is improved to 1.7. Did obtain CT chest without contrast which is negative for rib fracture, pneumothorax, acute pneumonic infiltrates, has chronic changes and some chronic effusion. Patient is on room air with saturation in upper 90s. CT abdomen pelvis is negative for obstruction, perforation, colitis, does have depressed IVC suggesting hypovolemia. I will continue with IV fluids. Shared the results of workup and offered observation admission with patient and family. They understand and agree. Discussed with Dr. Elise patient is being admitted. Complexity of problems addressed: Moderate to high acuity Complexity of data reviewed/analyzed: Extensive Risk of complication: Moderate Discussed with DrLanie: Gary Will see patient in: hospital (observation) Counseled pt/family regarding: lab results, diagnosis, rad results Medical Desision Making - Independent Historian Additional History obtained from: Child - Discussion of managment Care discussed with:: hospitalist Reviewed:: Test results Agreed on:: Treatment plan, place in obs Will see patient: in ED - Diagnostic Testing Diagnostic test were ordered, analyzed, and reviewed by me: Yes Radiological Interpretation: Reviewed by me, Teleradiologist Report - Risk of complications The pt has a mod risk of morbidity or mortality based on: Need for prescription drug management The pt has a high risk of morbidity or mortality based on: Decision regarding hospitilization or escalation of hosp level of care - Departure Departure Disposition: Observation Clinical Impression: Generalized weakness, Dehydration, Diarrhea, Acute UTI (urinary tract infection) Condition: Stable Critical Care Time: No Referrals: [facility] [Primary Care Provider, [facility]] - Follow up with PCP 1 day Instructions: Weakness - ED discharge instructions Additional Instructions: Drink plenty of fluids to keep yourself well-hydrated. Follow-up with primary care for reevaluation. Use cane/walker for ambulation to avoid a fall. Return to ER for intractable diarrhea/abdominal pain or if having difficulty breathing, fever chills etc.
--- NOTE | 2025-03-21 23:53 | XRAY ---
CLINICAL HISTORY: fall, rib pain, diarrhea/abd pain COMPARISON: 14 aug 2019. TECHNIQUE: Contiguous axial images were obtained from the neck base through the upper abdomen without contrast. In addition, sagittal and coronal reconstructions were performed to potentially increase the sensitivity for the detection of disease. CT scan was performed according to ALARA (as low as reasonable achievable). FINDINGS: Mild bilateral chronic pleural effusion with basal subsegmental collapse of right lower lobes are seen. Mild left sided pleural thickening with patchy calcified pleural plaques are seen. Few small soft scattered ground-glass nodules are also noted in both lungs. Multiple fibronodular and calcified scar are noted involving bilateral upper lobes. Few large irregular nodular lesions are noted involving apicoposterior segment of left upper lobe and posterior basal segment of left lower lobe- measuring about 33 x 27 mm and 24 x 15 mm respectively Large emphysematous bulla is noted involving anterior basal segment of right lower lobe. Few fibroreticular bands are noted involving and lower lobes and lingula. The central airways are patent. Evaluation of the mediastinum and lakes[place] is limited due to the lack of intravenous contrast. Multiple calcified mediastinal lymphnodes seen. The thyroid is unremarkable. The heart, aorta, and pulmonary arteries are of normal size and configuration. There are coronary artery and aortic atherosclerotic calcifications. No pericardial effusion is identified. Imaged portions of the upper abdomen are unremarkable. No aggressive appearing osseous lesions are identified. Calcified hepatosplenic granuloma noted. Sliding hiatus hernia noted. Hiatus hernia IMPRESSION: 1. Few large irregular nodular lesions are noted involving apicoposterior segment of left upper lobe and posterior basal segment of left lower lobe-new finding - follow up suggested. 2. Mild bilateral chronic pleural effusion with basal subsegmental collapse of right lower lobes are seen.-stable. 3. Mild left sided pleural thickening with patchy calcified pleural plaques are seen.-stable. 4. Few small soft scattered ground-glass nodules are also noted in both lungs.-stable. 5. Multiple fibronodular and calcified scar are noted involving bilateral upper lobes.- sequelae of prior infection likely.-stable. 6. Large emphysematous bulla is noted involving anterior basal segment of right lower lobe.-stable. 7. Few fibroreticular bands are noted involving and lower lobes and lingula.-stable. 8. Prior left lower lobe nodular consolidations are significantly resolved. Electronically Signed by: Teofilo Long MD. (03/21/2025 23:50:34 EDT)
--- NOTE | 2025-03-22 00:05 | XRAY ---
CLINICAL HISTORY: fall, rib pain, diarrhea/abd pain COMPARISON: 01/21/2024 , 11/24/2022 TECHNIQUE: Non-contrast CT of the abdomen and pelvis was performed, with the following protocol: axial images, and reconstructed coronal and sagittal images. One of the following dose reduction techniques was utilized for this exam: Automated exposure control, adjustment of the mA and/or kV according to patient size, and use of iterative reconstruction. FINDINGS: Abdomen: Liver: Normal in size, shape, and density. Multiple tiny punctate calcific foci are identified scattered in the hepatic parenchyma representing calcified granulomas. No other focal lesions, cysts, or masses were identified on this unenhanced examination. Gallbladder and Biliary System: The gallbladder is absent with clips in the gallbladder fossa. Pancreas: Pancreatic head, body, and tail are visualized and appear normal in size and density for age. No pancreatic masses or calcifications were noted. Spleen: Normal in size, shape, and density. Multiple tiny punctate calcific foci are identified scattered in the splenic parenchyma representing calcified granulomas. No splenic lesions or masses were identified. Appendix: The appendix is partly visualized and is normal in size without jennifer appendiceal fat stranding, and without an appendicolith. No evidence of appendiceal abscess or perforation. Kidneys and Adrenal Glands: Both kidneys are normal in size, shape, and position. Cortical thickness is within normal limits. Small nonobstructing calculus is identified in the left inferior renal pole measuring 2.5 mm in size. No renal calculi on the right side. No hydronephrosis bilaterally. Adrenal glands are unremarkable. Abdominal Aorta and Vessels: Atherosclerotic calcifications are identified along the abdominal aorta and its branches. Effacement of the infrahepatic IVC is noted. Pelvis: Urinary Bladder: Urinary bladder is suboptimally distended with slightly thickened rowland. No intraluminal lesions. Outpouchings identified along the lateral rowland of the urinary bladder representing bladder diverticuli. The largest on the left side measures 27 x 20 mm on axial section Prostate: Normal in size and contour. No masses or abnormal thickening. Seminal Vesicles: Normal appearance without abnormal enlargement or mass. Peritoneal and Retroperitoneal Structures: No free fluid or abnormal fluid collections were identified within the abdomen or pelvis. No lymphadenopathy was noted. Bowel: Sliding hiatus hernia identified. The visualized bowel loops are normal in caliber and appearance. No evidence of bowel obstruction or wall thickening. Uncomplicated colonic diverticulosis identified. Mild gaseous distention and fecal loading of the rectum is noted. It measures 73 mm in caliber. Bones and Soft Tissues: Reduced bone mineralization is identified. Degenerative changes are identified in the visualized spine. Lumbarization of S1 vertebral body is noted. Bladder stimulation device is identified in the left gluteal region as provided in the history with its wire extending into the pelvis posteriorly. Lower chest: Emphysematous changes identified in bilateral lung suh with pleural thickening on calcifications bilaterally appearing stable since prior examination. Suggestion of minimal right-sided pleural fluid/thickening. IMPRESSION: 1. No acute abdominopelvic pathology identified. 2. Small nonobstructing left renal calculus. 3. Urinary bladder diverticulae identified. 4. Effacement of the IVC suggestive of hypovolemia. New interval finding. 5. Uncomplicated colonic diverticulosis. 6. Hiatus hernia. 7. Rest of the findings are as stated above. Electronically Signed by: Saw Ireland MD. (03/22/2025 00:02:07 EDT)
[2025-03-22 02:15] LABS: Glucose, Urine Negative (Negative); Protein,Urine Dip 30 (Negative); WBC >100 /HPF (0-5)
[2025-03-22] MEDS ORDERED: ROCEPHIN 2 GM/100 ML NACL 2 GM/100 ML IVPB IV ONE ×2 (02:24→02:30)
[2025-03-22] MEDS: ROCEPHIN 2 GM/100 ML NACL 2 GM/100 ML IVPB IV STA (02:32)
[2025-03-22] MEDS ORDERED: PROVENTIL 2.5 MG/3 ML NEB IH PRN (03:07)
[2025-03-22] MEDS ORDERED: Zofran 4 MG/2 ML VIAL IV PRN (03:10)
[2025-03-22] MEDS ORDERED: HUMALOG SQ PRN (03:10)
--- NOTE | 2025-03-22 03:31 | PCM.HP ---
History of Present Illness - Chief Complaint Chief Complaint: Acute UTI, generalized weakness, dehydration Date: 03/22/25 History of Present Illness: is a 79 year old male with a history of hypertension, CHF (EF 20%), GERD, COPD (follows with Dr. Garcia; uses home oxygen prn with activity), failure to thrive, and recent subdural hematoma, who was brought to the ED by daughter with increasing generalized weakness, fatigue, and decreased oral intake lately. Daughter reports patient had multiple rounds of loose stool all day today and is not able to keep up with his hydration. There was no reported hematochezia. He also fell yesterday (on the day of presentation to the ED) and hit his ribs but did not hit his head. He denied loss of consciousness, abdominal pain, chest pain, or difficulty breathing. In the ED, the patient was noted to be dehydrated and also had a UTI. Antibiotics were initiated. He reports dizziness. He denied any urinary symptoms such as dysuria, hematuria, or urinary frequency. - Review of Systems Constitutional: Fatigue, Lethargy, Malaise, No Fever, No Chills, No Night Sweats, No Weakness, No Weight Loss Eyes: No Symptoms Ears, Nose, & Throat: No Symptoms Respiratory: No Symptoms Cardiac: No Symptoms Abdominal/Gastrointestinal: Diarrhea, No Abdominal Pain, No Nausea, No Vomiting, No Constipation, No Hematemesis, No Hematochezia, No Melena, No Dysphagia, No Appetite Changes Genitourinary Symptoms: No Symptoms Musculoskeletal: No Symptoms Skin: No Symptoms Neurological: Dizziness, Gait Changes, Lethargy, No Focal Weakness, No Headache, No Irritability, No Paralysis, No Parasthesia, No Seizure, No Sensory Changes, No Speech Changes Psychological: No Symptoms Endocrine: No Symptoms Hematologic/Lymphatic: No Symptoms Immunological/Allergic: No Symptoms All Other Systems: Reviewed and Negative Medications & Allergies Home Medications: Home Medication List Albuterol 2.5 mg/3 ml Neb [Proventil 2.5 mg/3 ml Neb] 2.5 mg IH Q6H PRN PRN 04/27/24 [History Confirmed 03/21/25] Fluticasone/Umeclidin/Vilanter [Trelegy Ellipta 100-62.5-25] 1 each IH DAILY 04/27/24 [History Confirmed 03/21/25] Metformin HCl 500 mg [Glucophage 500 MG] 2 tab PO BID 04/27/24 [History Confirmed 03/21/25] PANTOPRAZOLE 40 mg Tablet [Protonix 40MG Tablet] 40 mg PO QAM 14 Days #14 tab 04/30/24 [Rx Confirmed 03/21/25] Metoprolol Succinate 50 mg [Toprol Xl 50 MG] 0.5 tab PO DAILY 03/21/25 [History Confirmed 03/21/25] Allergies/Adverse Reactions: Allergies Allergy/AdvReac Type Severity Reaction Status Date / Time No Known Drug Allergies Allergy Verified 03/21/25 21:42 - Past Medical History Past Medical History: Yes Neurological History: Stroke, TIA ENT History: No Pertinent History Cardiac History: Congestive Heart Failure Respiratory History: COPD, Other Endocrine Medical History: Diabetes Type II Musculoskelatal History: No Pertinent History GI Medical History: Hernia History: No Pertinent History Pyscho-Social History: No Pertinent History Male Reproductive Disorders: No Pertinent History Comment: BLACK LUNG; HX TIAS POSSIBLY, gall stones - Past Surgical History Past Surgical History: Yes Neuro Surgical History: No Pertinent History Cardiac History: Cardiac Catheterization Respiratory Surgery: Other GI Surgical History: No Pertinent History Genitourinary Surgical Hx: Other Musculskeletal Surgical Hx: Orthopedic Surgery Male Surgical History: No Pertinent History Other Surgical History: lung biopsy, hand surgery, bladder stimulator Significant Family History: no pertinent family hx, heart disease (mother) - Social History Smoking Status: Former smoker Exposure to second hand smoke: No Alcohol: None Drug Use: none - Social Determinants of Health Will the patient participate in the screening: Yes Do you worry about a steady place to live?: No Do you have any problems with any of the following?: No known problems In the past 12 months,have you had to go without utilities?: No Have you or anyone in your house had to go without enough: No Transportation Issues: No Has anyone in your support network made you feel unsafe?: No Does the patient want assistance with any of the above?: No - Physical Exam Vital Signs: Vital Signs - 24 hr Temp Pulse Resp BP BP Pulse Ox 03/22/25 03:15 69 18 96 03/22/25 02:30 99 03/22/25 02:00 74 18 123/51 98 07/31/25 01:30 132/66 94 L 03/22/25 01:00 68 18 158/80 98 03/22/25 00:30 66 18 159/68 99 03/22/25 00:00 72 18 114/63 100 03/21/25 23:30 174/65 99 03/21/25 23:00 70 16 160/70 97 03/21/25 22:35 74 18 158/87 98 03/21/25 21:37 96.4 F 81 16 139/80 99 03/21/25 21:35 80 18 139/80 98 General Appearance: no apparent distress, alert, thin Neurologic Exam: alert, oriented x 3, 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, 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, normal mood/affect, nml cerebellar function, No sensation nml, No motor deficits, No sensory deficit Eye Exam: PERRL/EOMI, eyes nml inspection, No scleral icterus, No pale conjunctivae, No photophobia Neck Exam: normal inspection, non-tender, supple, full range of motion, No meningismus Respiratory Exam: normal breath sounds, lungs clear, airway intact, No chest tenderness, No respiratory distress, No diminished breath sounds, No accessory muscle use, No crackles/rales, No rhonchi, No wheezing Cardiovascular Exam: regular rate/rhythm, normal heart sounds, No murmur, No friction rub, No gallop, No edema Gastrointestinal/Abdomen Exam: soft, normal bowel sounds, No tenderness, No distention, No guarding Back Exam: normal range of motion Extremity Exam: normal inspection, normal range of motion, No pedal edema, No swelling Skin Exam: normal color, No rash, No petechiae, No jaundice Results - Labs Lab/Micro Results: Lab Results-Last 24 Hours 03/21/25 03/21/25 03/21/25 Range/Units 22:00 22:00 22:06 WBC 9.7 H (4.23-9.07) x10^3/uL RBC 4.47 L (4.63-6.08) x10^6/uL Hgb 12.6 L (13.7-17.5) g/dL Hct 41.1 (40.1-51.0) % MCV 91.9 (79.0-92.2) fL MCH 28.2 (25.7-32.2) pg MCHC 30.7 L (32.3-36.5) g/dL RDW 14.3 (11.6-14.4) % Plt Count 364 H (163-337) x10^3/uL MPV 10.3 (9.4-12.4) fL Gran % 72.7 H (34.0-67.9) % Immature Gran % (Auto) 0.5 H (0.001-0.429) % Nucleat RBC Rel Count 0.0 (0.00-0.2) % Eos # (Auto) 0.13 (0.04-0.54) x10^3/uL Immature Gran # (Auto) 0.05 H (0.001-0.031) x10^3u/L Absolute Lymphs (auto) 1.62 (1.32-3.57) x10^3/uL Absolute Monos (auto) 0.81 (0.30-0.82) x10^3/uL Absolute Nucleated RBC 0.00 (0.00-0.012) x10^3u/L Lymphocytes % 16.7 L (21.8-53.1) % Monocytes % 8.4 (5.3-12.2) % Eosinophils % 1.3 (0.8-7.0) % Basophils % 0.4 (0.2-1.2) % Absolute Granulocytes 7.05 H (1.78-5.38) x10^3/uL Basophils # 0.04 (0.01-0.08) x10^3/uL Sodium 137 (135-145) mmol/L Potassium 5.0 (3.5-5.1) mmol/L Chloride 103 (98-107) mmol/L Carbon Dioxide 22 (22-30) mmol/L Anion Gap 17.0 H (5-15) MEQ/L BUN 39 H (9-20) mg/dL Creatinine 1.22 (0.66-1.25) mg/dL Estimated GFR 59.6 ML/MIN Glucose 123 H (74-106) mg/dL Lactic Acid 3.6 H (0.4-2.0) Calcium 9.6 (8.4-10.2) mg/dL Total Bilirubin 0.60 (0.2-1.3) mg/dL AST 61 H (17-59) U/L ALT 56 H (0-50) U/L Alkaline Phosphatase 72 (38-126) U/L Serum Total Protein 8.0 (6.3-8.2) g/dL Albumin 4.1 (3.5-5.0) g/dL Lipase 51 (23-300) U/L Urine Color (Yellow) Urine Appearance (Clear) Urine pH (4.6-8.0) Ur Specific [place] (1.005-1.030) Urine Protein (Negative) Urine Glucose (UA) (Negative) mg/dL Urine Ketones (Negative) Urine Blood (Negative) Urine Nitrite (Negative) Urine Bilirubin (Negative) Urine Urobilinogen (0.2) mg/dL Ur Leukocyte Esterase (Negative) U Hyaline Cast (Auto) (0-2) /LPF Urine Microscopic RBC (0-5) /HPF Urine Microscopic WBC (0-5) /HPF Ur Epithelial Cells (None Seen) /HPF Urine Bacteria (None Seen) /HPF Urine Culture Reflexed (NO) 03/22/25 03/22/25 Range/Units 00:16 01:51 WBC (4.23-9.07) x10^3/uL RBC (4.63-6.08) x10^6/uL Hgb (13.7-17.5) g/dL Hct (40.1-51.0) % MCV (79.0-92.2) fL MCH (25.7-32.2) pg MCHC (32.3-36.5) g/dL RDW (11.6-14.4) % Plt Count (163-337) x10^3/uL MPV (9.4-12.4) fL Gran % (34.0-67.9) % Immature Gran % (Auto) (0.001-0.429) % Nucleat RBC Rel Count (0.00-0.2) % Eos # (Auto) (0.04-0.54) x10^3/uL Immature Gran # (Auto) (0.001-0.031) x10^3u/L Absolute Lymphs (auto) (1.32-3.57) x10^3/uL Absolute Monos (auto) (0.30-0.82) x10^3/uL Absolute Nucleated RBC (0.00-0.012) x10^3u/L Lymphocytes % (21.8-53.1) % Monocytes % (5.3-12.2) % Eosinophils % (0.8-7.0) % Basophils % (0.2-1.2) % Absolute Granulocytes (1.78-5.38) x10^3/uL Basophils # (0.01-0.08) x10^3/uL Sodium (135-145) mmol/L Potassium (3.5-5.1) mmol/L Chloride (98-107) mmol/L Carbon Dioxide (22-30) mmol/L Anion Gap (5-15) MEQ/L BUN (9-20) mg/dL Creatinine (0.66-1.25) mg/dL Estimated GFR ML/MIN Glucose (74-106) mg/dL Lactic Acid 1.7 (0.4-2.0) Calcium (8.4-10.2) mg/dL Total Bilirubin (0.2-1.3) mg/dL AST (17-59) U/L ALT (0-50) U/L Alkaline Phosphatase (38-126) U/L Serum Total Protein (6.3-8.2) g/dL Albumin (3.5-5.0) g/dL Lipase (23-300) U/L Urine Color Dark Yellow (Yellow) Urine Appearance Turbid A (Clear) Urine pH 5.5 (4.6-8.0) Ur Specific [place] 1.020 (1.005-1.030) Urine Protein 30 (Negative) Urine Glucose (UA) Negative (Negative) mg/dL Urine Ketones 15 A (Negative) Urine Blood Moderate A (Negative) Urine Nitrite Positive A (Negative) Urine Bilirubin Negative (Negative) Urine Urobilinogen 1.0 A (0.2) mg/dL Ur Leukocyte Esterase Large A (Negative) U Hyaline Cast (Auto) NONE SEEN (0-2) /LPF Urine Microscopic RBC 3-5 (0-5) /HPF Urine Microscopic WBC >100 A (0-5) /HPF Ur Epithelial Cells Rare (None Seen) /HPF Urine Bacteria Few A (None Seen) /HPF Urine Culture Reflexed YES (NO) - Radiology Impressions Radiology Exams & Impressions: Radiology Procedures Category Date Time Status ABDOMEN AND PELVIS W/0 CONTRAS [CT] Stat Exams 03/21/25 21:50 Completed CHEST WITHOUT CONTRAST [CT] Stat Exams 03/21/25 21:50 Completed - Other Procedures and Tests Respiratory Therapy 03/22/25 03:15 Respiratory Therapy Assessment DAILY Assessment/Plan (1) Acute UTI (urinary tract infection) Current Visit: Yes Status: Acute Assessment & Plan: Antibiotics. Follow cultures. Code(s): N39.0 - URINARY TRACT INFECTION, SITE NOT SPECIFIED (2) Dehydration Current Visit: Yes Status: Acute Assessment & Plan: Judicious IV fluids. Patient has CHF with EF 20%. Monitor volume status as patient received fluids. Code(s): E86.0 - DEHYDRATION (3) Dizziness Current Visit: Yes Status: Acute Assessment & Plan: Check AM orthostatics. PT/OT eval. Patient usually ambulates with rolling walker. Code(s): R42 - DIZZINESS AND GIDDINESS (4) Diabetes mellitus Current Visit: No Status: Chronic Assessment & Plan: Monitor sugars with ISS. Code(s): E11.9 - TYPE 2 DIABETES MELLITUS WITHOUT COMPLICATIONS Telemedicine Encounter - Telemedicine Encounter Telemedicine Encounter: "The entirety of this encounter was performed via Telemedicine" This visit was performed using real-time audio and video connection between my location and thepatients locationwith the assistance of a surrogateat the patients location. Written or verbal consent was obtained from the patient/guardian to perform this visit usingncTeepixtelemedicine technology. Any patient questions regarding the telemedicine interaction were answered. Please note that this admission required 45 minutes to complete.
[2025-03-22 04:30] LABS: BASOPHIL % 0.5 % (0.2-1.2); Basophil (Absolute #) 0.03 x10^3/uL (0.01-0.08); Eosinophil (Absolute #) 0.10 x10^3/uL (0.04-0.54); Hematocrit 40.0 % (40.1-51.0); Hemoglobin 12.1 g/dL (13.7-17.5); IMMATURE GRAN # 0.04 x10^3u/L (0.001-0.031); IMMATURE GRAN % 0.6 % (0.001-0.429); Lymphocyte (Absolute #) 1.28 x10^3/uL (1.32-3.57); Mean Corpuscular Hemoglobin 28.1 pg (25.7-32.2); Mean Corpuscular Hgb Concent. 30.3 g/dL (32.3-36.5); Monocyte (Absolute #) 0.59 x10^3/uL (0.30-0.82); NUCLEATED RBC # 0.00 x10^3u/L (0.00-0.012); NUCLEATED RBC % 0.0 % (0.00-0.2); Platelet Count 346 x10^3/uL (163-337); Red Blood Count 4.31 x10^6/uL (4.63-6.08); White Blood Count 6.5 x10^3/uL (4.23-9.07)
[2025-03-22 04:48] LABS: Calcium 8.9 mg/dL (8.4-10.2); Carbon Dioxide 25.0 mmol/L (22-30); Creatinine 1 1.06 mg/dL (0.66-1.25); EST GLOMERULAR FILTRATION RATE 70.5 ML/MIN; Glucose 88.0 mg/dL (74-106); Potassium 4.4 mmol/L (3.5-5.1)
[2025-03-22] MEDS ORDERED: MEDICATION INTERVENTION MC SCH (07:30)
[2025-03-22] MEDS: Glucophage 500 MG PO SCH (08:46)
[2025-03-22] MEDS ORDERED: Tums EX 750 MG PO PRN (08:47)
[2025-03-22] MEDS ORDERED: NON-FORMULARY ITEM (Fluticasone/Umeclidin/Vilanter [Trelegy Ellipta 100-62.5-25] 1 EACH Bl IH SCH (10:00)
[2025-03-22] MEDS ORDERED: ENOXAPARIN SODIUM SQ SCH (10:00)
[2025-03-22] MEDS ORDERED: Toprol Xl 50 MG PO SCH (10:00)
[2025-03-22] MEDS: Protonix 40MG Tablet PO SCH (10:32)
[2025-03-22] MEDS: Acidophilus TABLET PO SCH (10:32)
[2025-03-22] MEDS: Toprol-Xl 25MG Tablets PO SCH (10:33)
[2025-03-22] MEDS: ENOXAPARIN SODIUM SQ SCH (10:38)
[2025-03-22] MEDS: ROCEPHIN 1 GM / 100 ML NaCl 1 GM/100 ML IVPB IV SCH (22:12)
[2025-03-22] MEDS: TYLENOL 325 MG PO PRN (22:21)
[2025-03-22 23:00] LABS: Glucose, Urine 250 mg/dL (Negative); Protein,Urine Dip 30 (Negative); RBC 0-2 /HPF (0-5); WBC >100 /HPF (0-5)
[2025-03-23 04:54] LABS: Hematocrit 37.5 % (40.1-51.0); Hemoglobin 11.5 g/dL (13.7-17.5); Mean Corpuscular Hemoglobin 28.1 pg (25.7-32.2); Mean Corpuscular Hgb Concent. 30.7 g/dL (32.3-36.5); Platelet Count 315 x10^3/uL (163-337); Red Blood Count 4.09 x10^6/uL (4.63-6.08); White Blood Count 9.3 x10^3/uL (4.23-9.07)
[2025-03-23 05:07] LABS: Calcium 8.8 mg/dL (8.4-10.2); Carbon Dioxide 23.0 mmol/L (22-30); Creatinine 1 0.85 mg/dL (0.66-1.25); EST GLOMERULAR FILTRATION RATE 87.3 ML/MIN; Glucose 100.0 mg/dL (74-106); Potassium 4.1 mmol/L (3.5-5.1); SGOT/AST 28.0 U/L (17-59); SGPT/ALT 30.0 U/L (0-50); Total Protein 6.8 g/dL (6.3-8.2)
--- NOTE | 2025-03-23 10:11 | PCM.DS ---
Discharge Summary Date of Admission: 03/22/25 02:47 Date of Discharge: 03/23/25 Admitting Physician: MENG SULLIVAN MD Primary Care Provider: AME ULLOA Allergies Allergies No Known Drug Allergies Allergy (Verified 03/21/25 21:42) Hospital Summary - Hospital Course Hospital Course: An 79-year-old male with a history of hypertension, congestive heart failure (EF 20%), GERD, COPD (managed by Dr. Garcia with PRN home oxygen), failure to thrive, and a recent subdural hematoma was brought to the ED by his daughter due to increasing generalized weakness, fatigue, and poor oral intake. The daughter reported multiple episodes of loose stools throughout the day and concerns about dehydration. The patient also experienced a fall the previous day, hitting his ribs but not his head, and denied any loss of consciousness, abdominal pain, chest pain, or shortness of breath. In the ED, he was found to be dehydrated and diagnosed with a urinary tract infection; antibiotics were started. He reported dizziness but denied urinary symptoms such as dysuria, hematuria, or frequency. On 03/23, he was noted to be sitting up in a chair and feeling better. The initial urine sample was contaminated, so a repeat UA was obtained, confirming a UTI. He will be discharged on antibiotics with outpatient follow-up for culture results. His WBC count was 9.3. The patient will continue occupational and physical therapy at home with home health services. He is being discharged with family support and 24-hour care and currently denies any further concerns. - Vitals & Intake/Output Vital Signs: Vital Signs Temperature 97.3 F 03/23/25 07:55 Pulse Rate 75 03/23/25 07:55 Respiratory Rate 17 03/23/25 07:55 Blood Pressure 134/71 03/23/25 07:55 O2 Sat by Pulse Oximetry 94 L 03/23/25 07:55 Intake & Output: Intake & Output 03/20/25 03/21/25 03/22/25 03/23/25 11:59 11:59 11:59 11:59 Intake Total 360 1661 Output Total 400 1225 Balance -40 436 Weight 50.4 kg - Lab Result Diagrams: 03/23/25 04:50 03/23/25 04:50 Lab Results-Last 24 Hrs: Lab Results-Last 24 Hours 0703/22/25 03/22/25 Range/Units 11:41 16:45 22:18 WBC (4.23-9.07) x10^3/uL RBC (4.63-6.08) x10^6/uL Hgb (13.7-17.5) g/dL Hct (40.1-51.0) % MCV (79.0-92.2) fL MCH (25.7-32.2) pg MCHC (32.3-36.5) g/dL RDW (11.6-14.4) % Plt Count (163-337) x10^3/uL MPV (9.4-12.4) fL Sodium (135-145) mmol/L Potassium (3.5-5.1) mmol/L Chloride (98-107) mmol/L Carbon Dioxide (22-30) mmol/L Anion Gap (5-15) MEQ/L BUN (9-20) mg/dL Creatinine (0.66-1.25) mg/dL Estimated GFR ML/MIN Glucose (74-106) mg/dL POC Glucometer 160 H 173 H 144 H (74 to 106) mg/dL Calcium (8.4-10.2) mg/dL Total Bilirubin (0.2-1.3) mg/dL AST (17-59) U/L ALT (0-50) U/L Alkaline Phosphatase (38-126) U/L Serum Total Protein (6.3-8.2) g/dL Albumin (3.5-5.0) g/dL Urine Color (Yellow) Urine Appearance (Clear) Urine pH (4.6-8.0) Ur Specific [place] (1.005-1.030) Urine Protein (Negative) Urine Glucose (UA) (Negative) mg/dL Urine Ketones (Negative) Urine Blood (Negative) Urine Nitrite (Negative) Urine Bilirubin (Negative) Urine Urobilinogen (0.2) mg/dL Ur Leukocyte Esterase (Negative) U Hyaline Cast (Auto) (0-2) /LPF Urine Microscopic RBC (0-5) /HPF Urine Microscopic WBC (0-5) /HPF Ur Epithelial Cells (None Seen) /HPF Urine Bacteria (None Seen) /HPF Urine Culture Reflexed (NO) 03/22/25 03/23/25 03/23/25 Range/Units 22:30 04:50 04:50 WBC 9.3 H (4.23-9.07) x10^3/uL RBC 4.09 L (4.63-6.08) x10^6/uL Hgb 11.5 L (13.7-17.5) g/dL Hct 37.5 L (40.1-51.0) % MCV 91.7 (79.0-92.2) fL MCH 28.1 (25.7-32.2) pg MCHC 30.7 L (32.3-36.5) g/dL RDW 14.5 H (11.6-14.4) % Plt Count 315 (163-337) x10^3/uL MPV 10.1 (9.4-12.4) fL Sodium 138 (135-145) mmol/L Potassium 4.1 (3.5-5.1) mmol/L Chloride 106 (98-107) mmol/L Carbon Dioxide 23 (22-30) mmol/L Anion Gap 12.7 (5-15) MEQ/L BUN 28 H (9-20) mg/dL Creatinine 0.85 (0.66-1.25) mg/dL Estimated GFR 87.3 ML/MIN Glucose 100 (74-106) mg/dL POC Glucometer (74 to 106) mg/dL Calcium 8.8 (8.4-10.2) mg/dL Total Bilirubin 0.40 (0.2-1.3) mg/dL AST 28 (17-59) U/L ALT 30 (0-50) U/L Alkaline Phosphatase 52 (38-126) U/L Serum Total Protein 6.8 (6.3-8.2) g/dL Albumin 3.3 L (3.5-5.0) g/dL Urine Color Yellow (Yellow) Urine Appearance Turbid A (Clear) Urine pH 5.5 (4.6-8.0) Ur Specific [place] 1.020 (1.005-1.030) Urine Protein 30 (Negative) Urine Glucose (UA) 250 A (Negative) mg/dL Urine Ketones Trace A (Negative) Urine Blood Small A (Negative) Urine Nitrite Negative (Negative) Urine Bilirubin Negative (Negative) Urine Urobilinogen 1.0 A (0.2) mg/dL Ur Leukocyte Esterase Large A (Negative) U Hyaline Cast (Auto) NONE SEEN (0-2) /LPF Urine Microscopic RBC 0-2 (0-5) /HPF Urine Microscopic WBC >100 A (0-5) /HPF Ur Epithelial Cells None Seen (None Seen) /HPF Urine Bacteria None Seen (None Seen) /HPF Urine Culture Reflexed YES (NO) 03/23/25 Range/Units 07:30 WBC (4.23-9.07) x10^3/uL RBC (4.63-6.08) x10^6/uL Hgb (13.7-17.5) g/dL Hct (40.1-51.0) % MCV (79.0-92.2) fL MCH (25.7-32.2) pg MCHC (32.3-36.5) g/dL RDW (11.6-14.4) % Plt Count (163-337) x10^3/uL MPV (9.4-12.4) fL Sodium (135-145) mmol/L Potassium (3.5-5.1) mmol/L Chloride (98-107) mmol/L Carbon Dioxide (22-30) mmol/L Anion Gap (5-15) MEQ/L BUN (9-20) mg/dL Creatinine (0.66-1.25) mg/dL Estimated GFR ML/MIN Glucose (74-106) mg/dL POC Glucometer 93 (74 to 106) mg/dL Calcium (8.4-10.2) mg/dL Total Bilirubin (0.2-1.3) mg/dL AST (17-59) U/L ALT (0-50) U/L Alkaline Phosphatase (38-126) U/L Serum Total Protein (6.3-8.2) g/dL Albumin (3.5-5.0) g/dL Urine Color (Yellow) Urine Appearance (Clear) Urine pH (4.6-8.0) Ur Specific [place] (1.005-1.030) Urine Protein (Negative) Urine Glucose (UA) (Negative) mg/dL Urine Ketones (Negative) Urine Blood (Negative) Urine Nitrite (Negative) Urine Bilirubin (Negative) Urine Urobilinogen (0.2) mg/dL Ur Leukocyte Esterase (Negative) U Hyaline Cast (Auto) (0-2) /LPF Urine Microscopic RBC (0-5) /HPF Urine Microscopic WBC (0-5) /HPF Ur Epithelial Cells (None Seen) /HPF Urine Bacteria (None Seen) /HPF Urine Culture Reflexed (NO) Micro Results-Entire Visit: Microbiology 03/22/25 01:51 Urine Culture - Preliminary Clean Catch Midstream GRAM NEGATIVE ID AND SENSITIVITY PENDING Accuchecks Date 03/23/25 Date 03/22/25 Date 03/22/25 Time 07:54 Time 17:07 Time 12:35 - Radiology Exams Ordered Rad Exams-Entire Visit: Radiology Procedures Category Date Time Status ABDOMEN AND PELVIS W/0 CONTRAS [CT] Stat Exams 03/21/25 21:50 Completed CHEST WITHOUT CONTRAST [CT] Stat Exams 03/21/25 21:50 Completed - Procedures and Test Procedures and Tests throughout Hospitalization: Therapy Orders & Screens 03/22/25 03:10 PT Eval & Treat ( Order) ONCE Reason for Eval:: weakness Diagnosis: Acute UTI, generalized weakness, dehydration OT Eval and Treat (MD Order) ONCE Comment: Physician Instructions: Reason For Exam: Diagnosis: Acute UTI, generalized weakness, dehydration 03/22/25 03:15 Respiratory Therapy Assessment DAILY Comment: Diagnosis: Acute UTI, generalized weakness, dehydration Discharge Exam General Appearance: no apparent distress, alert, thin Neurologic Exam: alert, oriented x 3, cooperative, normal mood/affect, nml cerebellar function, sensation nml, motor weakness, No motor deficits Eye Exam: PERRL, EOMI, eyes nml inspection Ears, Nose, Throat Exam: normal ENT inspection, pharynx normal, moist mucous membranes Neck Exam: normal inspection, non-tender, supple, full range of motion Respiratory Exam: normal breath sounds, lungs clear, No respiratory distress Cardiovascular Exam: regular rate/rhythm, normal heart sounds Gastrointestinal/Abdomen Exam: soft, No tenderness, No mass Male Genitalia Exam: deferred Rectal Exam: deferred Back Exam: normal inspection, normal range of motion, No CVA tenderness, No vertebral tenderness Extremity Exam: normal inspection, normal range of motion Skin Exam: normal color, warm, dry Final Diagnosis/Problem List - Final Discharge Diagnosis/Problem (1) Acute UTI (urinary tract infection) Current Visit: Yes Status: Acute Assessment & Plan: - Will d/c with antibiotic and continue to follow culture OP - Repeat UA ordered since contaminated. Code(s): N39.0 - URINARY TRACT INFECTION, SITE NOT SPECIFIED (2) Dehydration Current Visit: Yes Status: Resolved Assessment & Plan: - resolved Code(s): E86.0 - DEHYDRATION (3) Dizziness Current Visit: Yes Status: Resolved Assessment & Plan: - resolved Code(s): R42 - DIZZINESS AND GIDDINESS (4) Diabetes mellitus Current Visit: No Status: Chronic Assessment & Plan: - Monitor sugars with ISS. - A1C 7.50- 03/16/25- Controlled Code(s): E11.9 - TYPE 2 DIABETES MELLITUS WITHOUT COMPLICATIONS (5) Diarrhea Current Visit: Yes Status: Resolved Assessment & Plan: - Resolved since admission - Probiotic D/C plan took > 33 minutes Code(s): R19.7 - DIARRHEA, UNSPECIFIED - Discharge Discharge Date: 03/23/25 Disposition: HOME HEALTH SERVICE Condition: Stable Prescriptions: Continue Metformin HCl 500 mg [Glucophage 500 MG] 2 tab PO BID Albuterol 2.5 mg/3 ml Neb [Proventil 2.5 mg/3 ml Neb] 2.5 mg IH Q6H PRN PRN PRN Reason: Shortness Of Breath Fluticasone/Umeclidin/Vilanter [Trelegy Ellipta 100-62.5-25] 1 each IH DAILY PANTOPRAZOLE 40 mg Tablet [Protonix 40MG Tablet] 40 mg PO QAM 14 Days #14 tab Metoprolol Succinate [Toprol Xl] 25 mg PO DAILY Additional Instructions: [facility] WILL CONTINUE TO SEE YOU. WE HAVE ADDED PHYSICAL THERAPY, OCCUPATIONAL THERAPY AND A HOME HEALTH AIDE TO YOUR SERVICES THRU THEM. Follow up with: AME ULLOA [Primary Care Provider, [facility]ILY [facility]ACTICE]
[2025-03-23 11:55] VITALS: TEMP 97.2
[2025-03-23 17:46] VITALS: BP 156/71; PULSE 73; RESP 17; O2SAT 99
== END 2025-03-23 17:40 | disposition home health service (06) ==
LOC: ED 21:23 → MED SURG 03-22 02:47
PROVIDERS: ADMIT Internal Medicine; ATTEND Internal Medicine
DX: N39.0 Urinary tract infection, site not specified (principal); E86.0 Dehydration; R42 Dizziness and giddiness; E11.9 Type 2 diabetes mellitus without complications; R19.7 Diarrhea, unspecified; I11.0 Hypertensive heart disease with heart failure; I50.9 Heart failure, unspecified; W19.XXXA Unspecified fall, initial encounter; K21.9 Gastro-esophageal reflux disease without esophagitis; J44.9 Chronic obstructive pulmonary disease, unspecified; R62.7 Adult failure to thrive; J60 Coalworker's pneumoconiosis; Z79.899 Other long term (current) drug therapy
CPT/HCPCS: 36415; 71250; 74176; 80048; 80053; 81001; 82947; 83605; 83690; 85025; 85027; 87077; 87086; 87186; 94760; 96360; 97110; 97161; 97166; 97530; 99285; P9612; Q3014